=== PATIENT | female | born 1985 | race Caucasian/White ===

== ENCOUNTER → 2018-02-07 10:25 | Outpatient (CLI) | payer OTHER, MEDICAID, SELFPAY ==
[2018-02-07 12:05] LABS: Thyroid Stimulating Hormone 1.53 uIU/mL (0.47-4.68)
== END ==
PROVIDERS: Visit Provider Internal Medicine
DX: R53.83 Other fatigue (principal)
CPT/HCPCS: 36415; 84443

== ENCOUNTER → 2019-02-28 15:15 | Outpatient (CLI) | payer OTHER, SELFPAY ==
[2019-02-28 18:44] LABS: Appearance Urine UA CLOUDY; Bilirubin Urine UA NEGATIVE (NEGATIVE); Color Urine UA YELLOW; Glucose Urine UA NEGATIVE (Negative); Ketones Urine UA TRACE (NEGATIVE); Leukocyte Esterase Urine UA TRACE (NEGATIVE); Nitrite Urine UA NEGATIVE (Negative); Occult Blood Urine UA 2+ (Negative); Protein Urine UA 2+ (Negative); Urobilinogen Urine UA 0.2 E.U./dL (0.2); pH Urine UA 5.5 (4.5-8.0)
[2019-02-28 18:55] LABS: RBC Urine 1-5/HPF (0-5/HPF); WBC Urine 5-10/HPF (0-5/HPF)
[2019-02-28 18:56] LABS: Amorphous Sediment Urine 1+; Bacteria Urine Few (2-10); Culture Indicated Urine Specimen Cultured; Mucus Urine 1+ (Negative); Squamous Epithelial Cell Urine 5-10 /HPF (0-5/HPF)
== END ==
PROVIDERS: PCP Student in an Organized Health Care Education/Training Program; Visit Provider Hospitalist
DX: R31.9 Hematuria, unspecified (principal)
CPT/HCPCS: 81001; 87086

== ENCOUNTER → 2019-02-28 15:34 | Outpatient (CLI) | payer OTHER, SELFPAY ==
[2019-02-28 16:04] LABS: Add Manual Diff / Slide Review NO; Basophils Absolute Auto 100 /uL (0-100); Basophils Percent Auto 0.7 % (0-2); Eosinophils Absolute Auto 100 /uL (0-450); Eosinophils Percent Auto 0.8 % (2-4); Hematocrit 32.1 % (36-46); Hemoglobin 10.4 g/dL (12.0-16.0); Lymphocytes Absolute Auto 700 /uL (1100-4500); Lymphocytes Percent Auto 8.3 % (25-40); Mean Corpuscular HGB Conc 32.5 % (30-36); Mean Corpuscular Hemoglobin 23.8 PG (26-34); Mean Corpuscular Volume 73.2 fL (80-100); Monocytes Absolute Auto 900 /uL (0-900); Monocytes Percent Auto 11.1 % (3-14); Neutrophils Absolute Auto 6200 /uL (1500-7000); Neutrophils Percent Auto 79.1 % (50-75); Platelet Count 241 X10^3/uL (150-400); Red Blood Cell Count 4.38 X10^6/uL (4.0-5.2); Red Cell Distribution Width 17.2 % (11.6-14.8); White Blood Cell Count 7.9 X10^3/uL (4.5-11.0)
[2019-02-28 16:11] LABS: Hemoglobin A1C% w Est Avg Glu 5.2 % (4.0-6.0)
[2019-02-28 16:31] LABS: Alanine Aminotransferase 12 IU/L (9-52); Albumin Globulin Ratio 1.3 (1.0-2.8); Alkaline Phosphatase 75 U/L (38-126); Aspartate Aminotransferase 16 IU/L (14-36); BUN Creatinine Ratio 15.7 (6-22); Bilirubin Total 0.4 mg/dL (0.2-1.3); Blood Urea Nitrogen 11 mg/dL (7-17); Calcium 9.2 mg/dL (8.4-10.2); Carbon Dioxide 26 mmol/L (22-32); Chloride 105 mmol/L (98-107); Cholesterol 163 mg/dL (140-199); Estimated Glomerular Filt Rate > 60.0 mL/min (>60); Globulin 3.1 g/dL (1.7-4.1); Glucose 118 mg/dL (70-100); HDL Cholesterol 40 mg/dL (40-60); HEMOLYSIS < 15 (0-50); LDL Cholesterol Calculated 78 mg/dL (<100); Potassium 4.5 mmol/L (3.4-5.1); Sodium 140 mmol/L (137-145); Total Protein 7.1 g/dL (6.3-8.2); Triglycerides 223 mg/dL (35-150)
[2019-02-28 16:46] LABS: Vitamin D 25 Hydroxy (D3) 32.1 ng/mL (30.0-100.0)
== END ==
PROVIDERS: PCP Student in an Organized Health Care Education/Training Program; Visit Provider Hospitalist
DX: R31.9 Hematuria, unspecified (principal); E55.9 Vitamin D deficiency, unspecified; E28.2 Polycystic ovarian syndrome; E66.01 Morbid (severe) obesity due to excess calories; I10 Essential (primary) hypertension; E78.5 Hyperlipidemia, unspecified; R50.9 Fever, unspecified
CPT/HCPCS: 36415; 80053; 80061; 81001; 82306; 83036; 85025; 87086

== ENCOUNTER → 2019-03-01 15:55 | Outpatient (CLI) | payer OTHER, SELFPAY ==
--- NOTE | 2019-03-01 15:57 | DI.RAD.S_ITS ---
PROCEDURE: XR CHEST 2V INDICATIONS: fever TECHNIQUE: 2 views of the chest were acquired. COMPARISON: [facility], , CHEST 2 VIEW, 11/13/2014, 15:47. FINDINGS: Surgical changes and devices: None. Lungs and pleura: Pulmonary vascular congestion is seen. Airspace opacity in right infrahilar region is seen consistent with right lower lobe infiltrate. Left lung is clear. No pleural effusions or pneumothorax. Mediastinum: Mediastinal contours are normal. Heart size is normal. Bones and chest wall: No suspicious bony abnormalities. Soft tissues appear unremarkable. IMPRESSION: Pulmonary vessel congestion. Suggestion of right lower lobe infiltrate. Dictated by: Margarito Branham M.D. on 03/01/2019 at 16:38 Approved by: Margarito Branham M.D. on 03/01/2019 at 16:39
== END ==
PROVIDERS: PCP Student in an Organized Health Care Education/Training Program; Visit Provider Hospitalist
DX: R50.9 Fever, unspecified (principal); R09.89 Other specified symptoms and signs involving the circulatory and respiratory systems
CPT/HCPCS: 71046

== ENCOUNTER 2019-03-03 19:34 | Inpatient (IN) | payer OTHER, SELFPAY ==
[2019-03-03] VITALS (7 sets, daily range): BP systolic 119–162; BP diastolic 93–125; PULSE 125–145; RESP 19–40; TEMP 36.8–38.2; O2SAT 88–98; BMI 56.6
--- NOTE | 2019-03-03 19:57 | ED.SOB ---
HPI - SOB/Dyspnea General Chief Complaint: Shortness of Breath/Dyspnea Stated Complaint: pneumonia x5 days/on antibiotics Time Seen by Provider: 03/03/19 19:43 Source: patient Mode of arrival: ambulatory Limitations: no limitations History of Present Illness Patient is a 33-year-old female who was diagnosed with pneumonia on 03/01/2019 she was placed on Levaquin. She continues to have fever and increasing shortness of breath. She used her 's albuterol inhaler she says it did not really help. She feels short of breath at rest it is worse with exertion. She has no chest pain or tightness. She has no history of blood clots. She is noted be quite tachycardic in the ED. Her last dose of Tylenol was around 4:00 p.m.. Related Data Home Medications Medication Instructions Recorded Confirmed tramadol 50 mg tablet 50 mg PO DAILY PRN 12/04/18 03/04/19 Previous Rx's Medication Instructions Recorded ibuprofen 800 mg PO PRN PRN #90 tab 08/16/16 [id number] 1 cap PO Q6HP PRN #30 cap 10/03/17 [Fiorinal-Codeine #3] cromolyn [Nasalcrom] 0 NS SEE INSTRUCTIONS #1 bot 10/27/17 amlodipine 5 mg tablet 5 mg PO DAILY #90 tab 12/12/18 desogestrel 0.15 mg-ethinyl 1 tab PO DAILY #84 tab 02/15/19 estradiol 0.03 mg tablet levofloxacin 750 mg tablet 750 mg PO DAILY #7 tab 03/01/19 Allergies Allergy/AdvReac Type Severity Reaction Status Date / Time adhesive [ADHESIVE] AdvReac Unknown RASH Verified 03/03/19 19:51 hydrocodone [HYDROCODONE] AdvReac Unknown headache Verified 03/03/19 19:51 Review of Systems Review of Systems ROS Unobtainable: All systems reviewed & are unremarkable except as noted in HPI and below Constitutional Reports body ache(s), Reports chills, Reports fatigue and Reports fever(s) Eyes Denies change in vision, Denies eye discharge, Denies irritation and Denies loss of vision ENT Ears, Nose, Mouth, and Throat: Denies change in voice, Denies neck pain and Denies sore throat Cardiovascular Denies chest pain, Denies irregular heart rhythm, Denies lightheadedness, Denies palpitations, Reports dyspnea, Reports dyspnea on exertion and Denies orthopnea Respiratory Reports as per HPI, Reports chest congestion, Reports cough, Reports dyspnea and Reports dyspnea on exertion Gastrointestinal Gastrointestinal: Denies abdominal pain, Denies change in bowel habits, Denies diarrhea, Denies nausea and Denies vomiting Genitourinary Denies hematuria, Denies flank pain, Denies urinary incontinence and Denies urinary urgency Musculoskeletal Denies neck pain Integumentary/Breasts Denies pruritus, Denies erythema, Denies rash and Denies wounds Neurologic Denies loss of vision Endocrine Reports fatigue and Denies palpitations [facility] Medical History Hypertension (Chronic) Morbid obesity (Chronic) Hypoventilation associated with obesity syndrome (Acute) Pneumonia (Acute) Anxiety (Chronic) Chronic back pain (Chronic) DDD (degenerative disc disease), lumbar (Chronic) Depression (Chronic) PCOS (polycystic ovarian syndrome) (Chronic) 0 (Resolved) Surgical History History of tonsillectomy (Resolved) Family History Grandmother Coronary artery disease Mother Coronary artery disease Lung cancer Grandfather Coronary artery disease Unknown Hyperlipidemia Hypertension Coronary artery disease Depression Alcoholism Family/Other Hydrocephalus Social History household members: spouse Smoking Status: Former smoker alcohol intake: never substance use type: does not use Family History Grandmother Coronary artery disease Mother Coronary artery disease Lung cancer Grandfather Coronary artery disease Unknown Hyperlipidemia Hypertension Coronary artery disease Depression Alcoholism Family/Other Hydrocephalus Social History household members: spouse Smoking Status: Former smoker alcohol intake: never substance use type: does not use Exam Initial Vital Signs Initial Vital Signs: Vital Signs Temperature 98.7 F 03/03/19 19:51 Pulse Rate 130 H 03/03/19 19:51 Respiratory Rate 26 H 03/03/19 19:51 Blood Pressure 145/125 H 03/03/19 19:51 Pulse Oximetry 93 06/23/19 19:51 GENERAL obese female alert oriented x3 in mild respiratory distress HEENT: Head atraumatic,EOMI, pupils reactive, CARDIOVASCULAR: Tachycardic regular no murmur RESPIRATORY: Decreased breath sounds bilaterally no wheezes rales or rhonchi speaks in full sentences ABDOMEN: Soft, nontender. Normoactive bowel sounds all 4 quadrants. No guarding or rebound. EXTREMITIES: Normal range of motion, no clubbing or edema. Neurovascularly intact NEUROLOGICAL: Alert and oriented x4.Normal gait and speech. Cranial nerves II through XII grossly intact. SKIN: Warm, dry, no laceration, no petechiae, no rashes or lesions. Course Orders Ordered: ED Orders 03/03/19 19:53 B Type Natriuretic Peptide Stat Complete Blood Count AUTO DIFF Stat Comprehensive Metabolic Panel Stat Lactate (Lactic Acid) Stat Magnesium Stat Procalcitonin Stat Troponin & CK Cardiac Panel Stat 03/03/19 19:54 Consult to Respiratory Therapy Evaluate & Treat EKG-12 Lead Stat 03/03/19 19:58 CT angio chest PE protocol Stat 03/03/19 21:16 Urine Microscopic Stat 03/03/19 21:30 Blood Culture Stat 03/03/19 23:23 Arterial Blood Gas Stat 03/03/19 23:39 Education, smoking cessation ONGOING 03/03/19 23:43 Consult to Respiratory Therapy Evaluate & Treat 03/04/19 00:01 Education, smoking cessation ONGOING RT Consult Eval and Treat Now 03/04/19 00:32 Respiratory Panel (Film Array) Stat 03/04/19 05:00 Basic Metabolic Panel Routine Complete Blood Count AUTO DIFF Routine Albuterol (Ventolin) 2.5 mg INH [id number] KIRAN Last Admin: 03/04/19 00:02 Dose: 2.5 mg Albuterol/Ipratropium (Duoneb) 3 ml INH RTQ4HR PRN PRN Reason: Shortness Of Breath Last Admin: 03/04/19 00:02 Dose: 3 ml Amlodipine Besylate (Norvasc) 5 mg PO DAILY KIRAN Azithromycin (Zithromax) 500 mg PO DAILY [facility] Ceftriaxone Sodium/Dextrose (Rocephin) 1 gm in 50 mls @ 100 mls/hr IV Q24H KIRAN Sodium Chloride (Normal Saline 0.45%) 1,000 mls @ 125 mls/hr IV CONT KIRAN Ketorolac Tromethamine (Toradol) 30 mg IV Q8HR PRN PRN Reason: Pain, Moderate (4-6) Stop: 03/08/19 23:55 Levalbuterol HCl (Xopenex) 1.25 mg INH [id number] [facility] Non-Formulary Medication (Desogestrel-Ethinyl Estradiol) 1 tab PO DAILY [facility] Prednisone (Deltasone) 50 mg PO DAILY [facility] Stop: 03/11/19 08:59 Discontinued Medications Albuterol/Ipratropium (Duoneb) 3 ml INH NOW ONE Stop: 03/03/19 19:54 Last Admin: 03/03/19 20:10 Dose: 3 ml Azithromycin (Zithromax) 500 mg PO DAILY [facility] Sodium Chloride (Normal Saline 0.9%) 1,000 mls @ 1,000 mls/hr IV BOLUS ONE Stop: 03/03/19 20:52 Last Infusion: 03/03/19 22:37 Dose: 0 mls/hr Admin: 03/03/19 21:00 Dose: 1,000 mls/hr Sodium Chloride (Normal Saline 0.9%) 4,490.55 mls @ 1,496.85 mls/hr 30 ml/kg infuse over 3 hr (4490.55 ml) IV NOW ONE Stop: 03/04/19 00:41 Last Infusion: 03/04/19 00:22 Dose: 0 mls/hr Infusion: 03/03/19 23:10 Dose: 400 mls/hr Infusion: 03/03/19 23:02 Dose: 0 mls/hr Admin: 03/03/19 22:39 Dose: 1,496.85 mls/hr Azithromycin 500 mg/ Dextrose 250 mls @ 250 mls/hr IV NOW ONE Stop: 03/03/19 22:39 Last Infusion: 03/04/19 00:23 Dose: 0 mls/hr Admin: 03/03/19 23:55 Dose: 250 mls/hr Ceftriaxone Sodium/Dextrose (Rocephin) 1 gm in 50 mls @ 100 mls/hr IV NOW ONE Stop: 03/03/19 23:07 Last Infusion: 03/03/19 23:45 Dose: 0 mls/hr Infusion: 03/03/19 23:10 Dose: 100 mls/hr Infusion: 03/03/19 23:02 Dose: 0 mls/hr Admin: 03/03/19 22:56 Dose: 100 mls/hr Ceftriaxone Sodium/Dextrose (Rocephin) 1 gm in 50 mls @ 100 mls/hr IV Q24H KIRAN Ketorolac Tromethamine (Toradol) 30 mg IV NOW ONE Stop: 03/03/19 22:37 Last Admin: 03/03/19 22:38 Dose: 30 mg Methylprednisolone (Solu-Medrol 125 Mg Vial) 125 mg IV NOW ONE Stop: 03/03/19 23:45 Vital Signs - 8 hr 03/03/19 19:51 03/03/19 20:10 03/03/19 21:22 Temperature 98.7 F Pulse Rate 130 H 127 H 145 H Respiratory Rate 26 H 24 40 H Blood Pressure 145/125 H Blood Pressure [Right Arm] 119/94 H Pulse Oximetry 93 93 88 L 03/03/19 21:30 03/03/19 22:00 03/03/19 22:31 Temperature 100.8 F H Pulse Rate 127 H 125 H 126 H Respiratory Rate 27 H 19 29 H Blood Pressure Blood Pressure [Right Arm] 159/93 H 155/109 H 162/117 H Pulse Oximetry 95 93 98 03/03/19 23:26 03/04/19 00:03 03/04/19 00:17 Temperature 98.3 F Pulse Rate 119 H Respiratory Rate 26 H Blood Pressure 108/90 Blood Pressure [Right Arm] Pulse Oximetry 100 96 03/04/19 00:30 Temperature 99.3 F Pulse Rate 116 H Respiratory Rate 28 H Blood Pressure 106/74 Blood Pressure [Right Arm] Pulse Oximetry 95 MDM - SOB/Dyspnea Lab Data Attestation: I reviewed the patient's lab results. Result diagrams: 03/03/19 19:53 03/03/19 19:53 Lab Results 03/03/19 03/03/19 03/03/19 Range/Units 19:53 19:53 19:53 WBC 4.9 (4.5-11.0) X10^3/uL RBC 3.73 L (4.0-5.2) X10^6/uL Hgb 8.8 L (12.0-16.0) g/dL Hct 26.9 L (36-46) % MCV 72.3 L (80-100) fL MCH 23.7 L (26-34) PG MCHC 32.8 (30-36) % RDW 17.6 H (11.6-14.8) % Plt Count 187 (150-400) X10^3/uL Neut % (Auto) 83.0 H (50-75) % Lymph % (Auto) 8.3 L (25-40) % Schleicher % (Auto) 8.0 (3-14) % Eos % (Auto) 0.2 L (2-4) % Baso % (Auto) 0.5 (0-2) % Neut # (Auto) 4100 (2335-4919) /uL Lymph # (Auto) 400 L (0687-0511) /uL Schleicher # (Auto) 400 (0-900) /uL Eos # (Auto) 0 (0-450) /uL Baso # (Auto) 0 (0-100) /uL ABG pH (7.35-7.45) ABG pCO2 (35-45) mmHg ABG pO2 (80-100) mmHg ABG HCO3 (22-26) mmol/L ABG Total CO2 (21-31) mmol/L ABG O2 Saturation (95-100) % ABG Base Excess (-2-2) mmol/L FiO2 Sodium 136 L (137-145) mmol/L Potassium 3.8 (3.4-5.1) mmol/L Chloride 102 (98-107) mmol/L Carbon Dioxide 25 (22-32) mmol/L BUN 9 (7-17) mg/dL Creatinine 0.70 (0.52-1.04) mg/dL Estimated GFR > 60.0 (>60) mL/min BUN/Creatinine Ratio 12.9 (6-22) Glucose 116 H (70-100) mg/dL Lactate (0.7-2.1) mmol/L Calcium 8.9 (8.4-10.2) mg/dL Magnesium 1.7 (1.6-2.3) mg/dL Total Bilirubin 0.4 (0.2-1.3) mg/dL AST 38 H (14-36) IU/L ALT 34 (9-52) IU/L Alkaline Phosphatase 67 (38-126) U/L Total Creatine Kinase 417 H (30-135) U/L CK-MB (CK-2) 1.00 (<2.37) ng/mL CK-MB (CK-2) Rel Index 0.2 L (1.5-5.0) % Troponin I 0.015 (0.01-0.034) ng/mL B-Natriuretic Peptide < 100 (<100) Total Protein 7.2 (6.3-8.2) g/dL Albumin 3.8 (3.5-5.0) g/dL Globulin 3.4 (1.7-4.1) g/dL Albumin/Globulin Ratio 1.1 (1.0-2.8) Procalcitonin 0.11 (<0.5) ng/mL Urine RBC (0-5/HPF) Urine WBC (0-5/HPF) Ur Squamous Epith Cells (0-5/HPF) Urine Bacteria (None) Ur Culture Indicated? 03/03/19 03/03/19 03/03/19 Range/Units 19:53 21:16 23:23 WBC (4.5-11.0) X10^3/uL RBC (4.0-5.2) X10^6/uL Hgb (12.0-16.0) g/dL Hct (36-46) % MCV (80-100) fL MCH (26-34) PG MCHC (30-36) % RDW (11.6-14.8) % Plt Count (150-400) X10^3/uL Neut % (Auto) (50-75) % Lymph % (Auto) (25-40) % Schleicher % (Auto) (3-14) % Eos % (Auto) (2-4) % Baso % (Auto) (0-2) % Neut # (Auto) (4928-0862) /uL Lymph # (Auto) (0633-3719) /uL Schleicher # (Auto) (0-900) /uL Eos # (Auto) (0-450) /uL Baso # (Auto) (0-100) /uL ABG pH 7.39 (7.35-7.45) ABG pCO2 28.6 L (35-45) mmHg ABG pO2 78 L (80-100) mmHg ABG HCO3 17 L (22-26) mmol/L ABG Total CO2 18 L (21-31) mmol/L ABG O2 Saturation 96 (95-100) % ABG Base Excess -8.0 L (-2-2) mmol/L FiO2 0.28 Sodium (137-145) mmol/L Potassium (3.4-5.1) mmol/L Chloride (98-107) mmol/L Carbon Dioxide (22-32) mmol/L BUN (7-17) mg/dL Creatinine (0.52-1.04) mg/dL Estimated GFR (>60) mL/min BUN/Creatinine Ratio (6-22) Glucose (70-100) mg/dL Lactate 1.2 (0.7-2.1) mmol/L Calcium (8.4-10.2) mg/dL Magnesium (1.6-2.3) mg/dL Total Bilirubin (0.2-1.3) mg/dL AST (14-36) IU/L ALT (9-52) IU/L Alkaline Phosphatase (38-126) U/L Total Creatine Kinase (30-135) U/L CK-MB (CK-2) (<2.37) ng/mL CK-MB (CK-2) Rel Index (1.5-5.0) % Troponin I (0.01-0.034) ng/mL B-Natriuretic Peptide (<100) Total Protein (6.3-8.2) g/dL Albumin (3.5-5.0) g/dL Globulin (1.7-4.1) g/dL Albumin/Globulin Ratio (1.0-2.8) Procalcitonin (<0.5) ng/mL Urine RBC 1-5/hpf (0-5/HPF) Urine WBC 0-1/hpf (0-5/HPF) Ur Squamous Epith Cells 1-5 /hpf (0-5/HPF) Urine Bacteria Few (2-10) H (None) Ur Culture Indicated? Cult not indicated Point of Care Testing Test Results Negative Urine Dip Bedside Urine Glucose Negative Bedside Urine Bilirubin - Negative Bedside Urine Ketone - Negative Urine Specific [place] 1.015 Bedside Urine Occult Blood + Bedside Urine pH 6.0 Bedside Urine Protein + 30 Bedside Urine Urobilinogen +/- 1mg Bedside Urine Nitrite - Negative Bedside Urine Leukocytes - Negative Esterase Imaging Data CT scan - chest: Radiologist's impression: PROCEDURE: CT ANGIO CHEST PE PROTOCOL INDICATIONS: short of breath, tachy hypoxic TECHNIQUE: After the administration of intravenous contrast, 2 mm thick sections acquired from the pulmonary apices to the posterior costophrenic angles. 3-dimensional maximum intensity projection (MIP) coronal and sagittal reformats were then acquired through the thorax. For radiation dose reduction, the following was used: automated exposure control, adjustment of mA and/or kV according to patient size. COMPARISON: None. FINDINGS: Image quality: Excellent. Pulmonary arteries: Pulmonary arteries are normal in size, and demonstrate no intraluminal filling defects to suggest central pulmonary embolism. Subsegmental branches of bilateral pulmonary arteries are suboptimally opacified due to patient's body habitus. Lungs and pleura: Numerous nodular airspace opacities are seen in posterior aspect of bilateral upper lobes, right middle lobe and bilateral lower lobes following bronchovascular distribution suggestive of extensive bilateral bronchopneumonia. Moderate size air space opacity in anterior aspect of left lower lobe is also seen. There is trace amount of left pleural effusion. No right pleural effusion or pneumothorax. Central and peripheral airways are patent. Mediastinum: Heart size is normal, without pericardial effusion. Prominent mediastinal lymph nodes are seen measures up to 13 mm in short axis diameter in the prevascular space. Thoracic aorta is normal in caliber and enhancement. Esophagus is normal in caliber, with a small hiatal hernia. Bones and chest wall: No suspicious bony lesions. Ribs and thoracic spine appear intact throughout. Thyroid gland is within normal limits. No axillary or supraclavicular adenopathy. Abdomen: Visualized upper abdominal solid organs appear normal in the early arterial phase of enhancement. IMPRESSION: 1. No central pulmonary malaise. Distal subsegmental branches of bilateral pulmonary arteries are suboptimally opacified. 2. Moderate size air space consolidation involving posterior aspect of left upper lobe and anterior aspect of left lower lobe adjacent to oblique fissure. Extensive smaller airspace opacities throughout bilateral lung marie following bronchovascular distribution suggestive of extensive bilateral bronchopneumonia. Trace left pleural effusion is seen. No gross pneumothorax. Airway is patent. 3. Mildly enlarged mediastinal lymph nodes suggestive of reactive inflammatory nodes. Dictated by: Margarito Branham M.D. on 03/03/2019 at 21:20 ECG Data Attestation: I personally reviewed and interpreted this ECG as follows: Prior ECG tracings: not available for review Interpretation: Sinus tachycardia rate [address] changes no T-wave inversions no priors to compare MDM Narrative Medical decision making narrative: Patient remains quite tachycardic in the ED. She had difficulty lying down for the CT. Her BNP is negative do not think CHF at this time. Her CT does show pneumonia. There is no PE. She got up to use the restroom and was quite tachypneic her O2 dropped to 88%. She overall is still dyspneic. She has no leukocytosis and a normal lactic acid I do not think sepsis at this time but clearly has pneumonia and failing outpatient treatment requiring oxygen she will be admitted at this time for further management. Further initially started on the full sepsis fluids but probably does not need all of that. Margarita Collins [employer]IST in the ED to see and evaluate patient Discharge Plan Departure Patient Disposition: Admitted as Observation Clinical Impression: Pneumonia Discharge Date/Time: 03/04/19 00:25 Interventions: ED Discharge Assessment Last Done: 03/04/19 00:17 Admit Date/Time: 03/03/19 22:41 Admit Provider: Margarita Collins
[2019-03-03 20:10] LABS: Add Manual Diff / Slide Review NO; Basophils Absolute Auto 0 /uL (0-100); Basophils Percent Auto 0.5 % (0-2); Eosinophils Absolute Auto 0 /uL (0-450); Eosinophils Percent Auto 0.2 % (2-4); Hematocrit 26.9 % (36-46); Hemoglobin 8.8 g/dL (12.0-16.0); Lymphocytes Absolute Auto 400 /uL (1100-4500); Lymphocytes Percent Auto 8.3 % (25-40); Mean Corpuscular HGB Conc 32.8 % (30-36); Mean Corpuscular Hemoglobin 23.7 PG (26-34); Mean Corpuscular Volume 72.3 fL (80-100); Monocytes Absolute Auto 400 /uL (0-900); Neutrophils Absolute Auto 4100 /uL (1500-7000); Platelet Count 187 X10^3/uL (150-400); Red Blood Cell Count 3.73 X10^6/uL (4.0-5.2); Red Cell Distribution Width 17.6 % (11.6-14.8); White Blood Cell Count 4.9 X10^3/uL (4.5-11.0)
[2019-03-03] MEDS: ALBUTEROL/IPRATROPIUM 3 ML AMPUL INH (20:10)
[2019-03-03 20:23] LABS: Lactate (Lactic Acid) 1.2 mmol/L (0.7-2.1)
[2019-03-03 20:24] LABS: Alanine Aminotransferase 34 IU/L (9-52); Albumin 3.8 g/dL (3.5-5.0); Albumin Globulin Ratio 1.1 (1.0-2.8); Alkaline Phosphatase 67 U/L (38-126); Aspartate Aminotransferase 38 IU/L (14-36); BUN Creatinine Ratio 12.9 (6-22); Bilirubin Total 0.4 mg/dL (0.2-1.3); Blood Urea Nitrogen 9 mg/dL (7-17); Calcium 8.9 mg/dL (8.4-10.2); Carbon Dioxide 25 mmol/L (22-32); Chloride 102 mmol/L (98-107); Creatine Kinase 417 U/L (30-135); Estimated Glomerular Filt Rate > 60.0 mL/min (>60); Globulin 3.4 g/dL (1.7-4.1); Glucose 116 mg/dL (70-100); HEMOLYSIS < 15 (0-50); Magnesium 1.7 mg/dL (1.6-2.3); Potassium 3.8 mmol/L (3.4-5.1); Sodium 136 mmol/L (137-145); Total Protein 7.2 g/dL (6.3-8.2)
[2019-03-03 20:32] LABS: B Type Natriuretic Peptide < 100 (<100)
[2019-03-03 20:35] LABS: Troponin I 0.015 ng/mL (0.01-0.034)
[2019-03-03 20:37] LABS: Procalcitonin 0.11 ng/mL (<0.5)
[2019-03-03 20:39] LABS: CKMB % Relative Index 0.2 % (1.5-5.0)
[2019-03-03] MEDS: SODIUM CHLORIDE 0.9% 1,000 ML 1000 ML IV (21:00)
--- NOTE | 2019-03-03 21:23 | PC.NURSE ---
I was notified by control room technician that pt was unable to lie flat for her CT angio due to SOB and body habitus. Dr Fonseca notified, plan of care discussed with pt and bedside. It was decided to try again, limiting the time lying flat as much as possible, pt given O2 Via mask for comfort, and breasts strapped flat to prevent them from strangling me. Pt was able to tolerate CT with above interventions. Pt was assisted to BR via WC. She was very SOB, tachycardic to 140's, RR 40, RA SpO2 88% after exertion. Pt required 5 minutes to recover. 2liters O2 applied via NC.
--- NOTE | 2019-03-03 22:15 | PM.HP.1 ---
History of Present Illness Date Patient Seen: 03/03/19 Time Patient Seen: 10:15 Chief complaint: pneumonia x5 days Narrative: Charisse Norwood is a 23 y.o. morbidly obese female who endorses a 5-day history of fevers and shortness of breath. She was initially treated in an outpatient setting for a viral illness on 03/01, though the ED report states she was treated with levaquin. This was not stated in the outpatient visit of 03/01. She has had fevers, shortness of breath and is unable to lay supine, she was reportedly tachypneac and tachycardic. States she has a cough, was productive at home with green, yellow and brown colored sputum, but has been unable to expectorate any while in the Ed. She states she has not been eating, is mildly nauseas, but has not vomited. Denies chest pain, diarrhea or constipation. Patient History Medical History Hypertension (Chronic) Morbid obesity (Chronic) Hypoventilation associated with obesity syndrome (Acute) Pneumonia (Acute) Anxiety (Chronic) Chronic back pain (Chronic) DDD (degenerative disc disease), lumbar (Chronic) Depression (Chronic) PCOS (polycystic ovarian syndrome) (Chronic) 0 (Resolved) Surgical History History of tonsillectomy (Resolved) Family History Grandmother Coronary artery disease Mother Coronary artery disease Lung cancer Grandfather Coronary artery disease Unknown Hyperlipidemia Hypertension Coronary artery disease Depression Alcoholism Family/Other Hydrocephalus Social History Smoking Status: Former smoker alcohol intake: never substance use type: does not use Family & Social History Family History Grandmother Coronary artery disease Mother Coronary artery disease Lung cancer Grandfather Coronary artery disease Unknown Hyperlipidemia Hypertension Coronary artery disease Depression Alcoholism Family/Other Hydrocephalus Safety & Behavioral: Feels Safe in Current Yes Environment Tobacco & Substance use: Smoking Status Former smoker, quit 2007. alcohol intake never Substance Use Type does not use Meds Home Medications Medication Instructions Recorded Confirmed Type ibuprofen 800 mg PO PRN PRN #90 tab 08/16/16 03/04/19 Rx ktkgvnw-wwbulzerkr-RHC-caff 1 cap PO Q6HP PRN #30 cap 10/03/17 03/04/19 Rx [Fiorinal-Codeine #3] cromolyn [Nasalcrom] 0 NS SEE INSTRUCTIONS #1 bot 10/27/17 02/28/19 Rx tramadol 50 mg tablet 50 mg PO DAILY PRN 12/04/18 03/04/19 History amlodipine 5 mg tablet 5 mg PO DAILY #90 tab 12/12/18 03/04/19 Rx desogestrel 0.15 mg-ethinyl 1 tab PO DAILY #84 tab 02/15/19 03/04/19 Rx estradiol 0.03 mg tablet levofloxacin 750 mg tablet 750 mg PO DAILY #7 tab 03/01/19 03/04/19 Rx Allergies Allergy/AdvReac Type Severity Reaction Status Date / Time adhesive [ADHESIVE] AdvReac Unknown RASH Verified 03/03/19 19:51 hydrocodone [HYDROCODONE] AdvReac Unknown headache Verified 03/03/19 19:51 Review of Systems Review of Systems All systems reviewed & are unremarkable except as noted in HPI and below Exam Vital Signs (past 8 hours): - 03/03/19 19:51 03/03/19 20:10 03/03/19 21:22 Temperature 98.7 F Pulse Rate 130 H 127 H 145 H Respiratory Rate 26 H 24 40 H Blood Pressure 145/125 H Blood Pressure [Right Arm] 119/94 H Pulse Oximetry 93 93 88 L 03/03/19 21:30 03/03/19 22:00 03/03/19 22:31 Temperature 100.8 F H Pulse Rate 127 H 125 H 126 H Respiratory Rate 27 H 19 29 H Blood Pressure Blood Pressure [Right Arm] 159/93 H 155/109 H 162/117 H Pulse Oximetry 95 93 98 03/03/19 23:26 03/04/19 00:03 Temperature 98.3 F Pulse Rate Respiratory Rate Blood Pressure Blood Pressure [Right Arm] Pulse Oximetry 100 Oxygen Delivery Method Nasal Cannula Oxygen Flow Rate 2 Narrative Exam Narrative: Gen: Alert, oriented morbidly obese 33 y.o. female, appears to have difficulty breathing HEENT: normocephalic, atraumatic, conjunctiva clear, sclera non-icteric, oral mucosa pink and moist Neck: supple, full ROM Resp: She has labored work of breathing, lung sounds diminished and tight CV: RRR, no murmur or rubs Abd: soft, non-tender, normoactive BTs : UPG negative Skin: no lesions or rashes, dry and intact Neuro: Alert and oriented X 4 w/no focal deficits Extremities: moves all 4 extremities, is ambulatory Psyche: normal mood and affect. Objective Labs Result Diagrams: 03/03/19 19:53 03/03/19 19:53 Labs: Laboratory Results - last 24 hr 03/03/19 03/03/19 03/03/19 19:53 19:53 19:53 WBC 4.9 RBC 3.73 L Hgb 8.8 L Hct 26.9 L MCV 72.3 L MCH 23.7 L MCHC 32.8 RDW 17.6 H Plt Count 187 Neut % (Auto) 83.0 H Lymph % (Auto) 8.3 L [place] % (Auto) 8.0 Eos % (Auto) 0.2 L Baso % (Auto) 0.5 Neut # (Auto) 4100 Lymph # (Auto) 400 L [place] # (Auto) 400 Eos # (Auto) 0 Baso # (Auto) 0 ABG pH ABG pCO2 ABG pO2 ABG HCO3 ABG Total CO2 ABG O2 Saturation ABG Base Excess FiO2 Sodium 136 L Potassium 3.8 Chloride 102 Carbon Dioxide 25 BUN 9 Creatinine 0.70 Estimated GFR > 60.0 BUN/Creatinine Ratio 12.9 Glucose 116 H Lactate Calcium 8.9 Magnesium 1.7 Total Bilirubin 0.4 AST 38 H ALT 34 Alkaline Phosphatase 67 Total Creatine Kinase 417 H CK-MB (CK-2) 1.00 CK-MB (CK-2) Rel Index 0.2 L Troponin I 0.015 B-Natriuretic Peptide < 100 Total Protein 7.2 Albumin 3.8 Globulin 3.4 Albumin/Globulin Ratio 1.1 Procalcitonin 0.11 Urine RBC Urine WBC Ur Squamous Epith Cells Urine Bacteria Ur Culture Indicated? 03/03/19 03/03/19 03/03/19 19:53 21:16 23:23 WBC RBC Hgb Hct MCV MCH MCHC RDW Plt Count Neut % (Auto) Lymph % (Auto) [place] % (Auto) Eos % (Auto) Baso % (Auto) Neut # (Auto) Lymph # (Auto) [place] # (Auto) Eos # (Auto) Baso # (Auto) ABG pH 7.39 ABG pCO2 28.6 L ABG pO2 78 L ABG HCO3 17 L ABG Total CO2 18 L ABG O2 Saturation 96 ABG Base Excess -8.0 L FiO2 0.28 Sodium Potassium Chloride Carbon Dioxide BUN Creatinine Estimated GFR BUN/Creatinine Ratio Glucose Lactate 1.2 Calcium Magnesium Total Bilirubin AST ALT Alkaline Phosphatase Total Creatine Kinase CK-MB (CK-2) CK-MB (CK-2) Rel Index Troponin I B-Natriuretic Peptide Total Protein Albumin Globulin Albumin/Globulin Ratio Procalcitonin Urine RBC 1-5/hpf Urine WBC 0-1/hpf Ur Squamous Epith Cells 1-5 /hpf Urine Bacteria Few (2-10) H Ur Culture Indicated? Cult not indicated Assessment & Plan Assessment & Plan narrative: Charisse Norwood is a 33 y.o. female who is hypoxic with a presumed community acquired pneumonia and will be placed into observation for further management and treatment. 1. Community acquired pneumonia, present on admission, acute She is initiated on IV ceftriaxone 1 gram daily and oral azithromycin 500 mg po daily 2. Obesity associated hypoventilation syndrome with a normal ABG, present on admission, acute Continuous pulse ox Patient has a history of untreated obstructive sleep apnea with significant nocturnal desaturations and has been unable to tolerate a nasal CPAP mask. She will receive a one time dose of Solu-medrol 125 mg IV X 1 Start oral predisone 50 mg daily Alternating levabuterol and duo nebs Supplemental oxygen by nasal cannula per RT She will likely need to be discharged on combination bronchodialator and steroid 3. Essential hypertension, present on admission, stable Continue home dose of amlodipine 10 mg daily Patient will be placed into observation as her stay is anticipated to not exceed 2 midnights. FEN: 0.45 NS at 125 ml/hour, 2 gram sodium diet, BMP in the am VTE Prophylaxis: enoxaparin 40 mg daily Disposition: likely discharge to home Code status: Full code Admission time: 65 minutes Meds reconciled: Yes Time Spent With Patient Time with patient: 15-24 minutes Quality VTE Deep Vein Thrombosis/Pulmonary Embolism Present on Admission: No
[2019-03-03] MEDS: KETOROLAC 60 MG/2 ML VIAL 30 MG IV (22:38)
[2019-03-03] MEDS: SODIUM CHLORIDE 0.9% 1496.85 ML IV (22:39)
[2019-03-03 22:46] LABS: Bacteria Urine Few (2-10); Culture Indicated Urine Cult Not Indicated; RBC Urine 1-5/HPF (0-5/HPF); Squamous Epithelial Cell Urine 1-5 /HPF (0-5/HPF); WBC Urine 0-1/HPF (0-5/HPF)
[2019-03-03] MEDS: CEFTRIAXONE 1 GM/50 ML FROZ.PIGGY IV (22:56)
--- NOTE | 2019-03-03 23:02 | PC.NURSE ---
Verbal order from Anuj Washburn to slow IV normal saline down and administer a total of 3L normal saline. Unable to change the total volume in MAR.
[2019-03-03 23:42] LABS: HCO3 ABG 17 mmol/L (22-26); Oxygen Saturation ABG 96 % (95-100); PCO2 ABG 28.6 mmHg (35-45); PO2 ABG 78 mmHg (80-100); TCO2 ABG 18 mmol/L (21-31); pH ABG 7.39 (7.35-7.45)
[2019-03-03 23:43] LABS: Fractionated Inspired Oxygen 0.28
[2019-03-03] MEDS: AZITHROMYCIN 500 MG in DEXTROSE 5% IN WATER 250 ML IV (23:55)
[2019-03-04] VITALS (21 sets, daily range): BP systolic 106–146; BP diastolic 72–90; PULSE 101–119; RESP 18–28; TEMP 36.3–37.4; O2SAT 87–100; BMI 58.6
[2019-03-04] MEDS: ALBUTEROL/IPRATROPIUM 3 ML AMPUL INH (00:02)
[2019-03-04] MEDS: ALBUTEROL 2.5 MG/3 ML NEB (ADULT) INH (00:02)
--- NOTE | 2019-03-04 00:11 | P.HP_ITS ---
History of Present Illness Date Patient Seen: 03/03/19 Time Patient Seen: 10:15 Chief complaint: pneumonia x5 days Narrative: Charisse Norwood is a 23 y.o. morbidly obese female who endorses a 5-day history of fevers and shortness of breath. She was initially treated in an outpatient setting for a viral illness on 03/01, though the ED report states she was treated with levaquin. This was not stated in the outpatient visit of 03/01. She has had fevers, shortness of breath and is unable to lay supine, she was reportedly tachypneac and tachycardic. States she has a cough, was productive at home with green, yellow and brown colored sputum, but has been unable to expectorate any while in the Ed. She states she has not been eating, is mildly nauseas, but has not vomited. Denies chest pain, diarrhea or constipation. Patient History Medical History Hypertension (Chronic) Morbid obesity (Chronic) Hypoventilation associated with obesity syndrome (Acute) Pneumonia (Acute) Anxiety (Chronic) Chronic back pain (Chronic) DDD (degenerative disc disease), lumbar (Chronic) Depression (Chronic) PCOS (polycystic ovarian syndrome) (Chronic) 0 (Resolved) Surgical History History of tonsillectomy (Resolved) Family History Grandmother Coronary artery disease Mother Coronary artery disease Lung cancer Grandfather Coronary artery disease Unknown Hyperlipidemia Hypertension Coronary artery disease Depression Alcoholism Family/Other Hydrocephalus Social History Smoking Status: Former smoker alcohol intake: never substance use type: does not use Family & Social History Family History Grandmother Coronary artery disease Mother Coronary artery disease Lung cancer Grandfather Coronary artery disease Unknown Hyperlipidemia Hypertension Coronary artery disease Depression Alcoholism Family/Other Hydrocephalus Safety & Behavioral: Feels Safe in Current Yes Environment Tobacco & Substance use: Smoking Status Former smoker, quit 2007. alcohol intake never Substance Use Type does not use Meds Home Medications Medication Instructions Recorded Confirmed Type ibuprofen 800 mg PO PRN PRN #90 tab 08/16/16 03/04/19 Rx evmjizn-ogxmhmmlqs-TID-caff 1 cap PO Q6HP PRN #30 cap 10/03/17 03/04/19 Rx [Fiorinal-Codeine #3] cromolyn [Nasalcrom] 0 NS SEE INSTRUCTIONS #1 bot 10/27/17 02/28/19 Rx tramadol 50 mg tablet 50 mg PO DAILY PRN 12/04/18 03/04/19 History amlodipine 5 mg tablet 5 mg PO DAILY #90 tab 12/12/18 03/04/19 Rx desogestrel 0.15 mg-ethinyl 1 tab PO DAILY #84 tab 02/15/19 03/04/19 Rx estradiol 0.03 mg tablet levofloxacin 750 mg tablet 750 mg PO DAILY #7 tab 03/01/19 03/04/19 Rx Allergies Allergy/AdvReac Type Severity Reaction Status Date / Time adhesive [ADHESIVE] AdvReac Unknown RASH Verified 03/03/19 19:51 hydrocodone [HYDROCODONE] AdvReac Unknown headache Verified 03/03/19 19:51 Review of Systems Review of Systems All systems reviewed & are unremarkable except as noted in HPI and below Exam Vital Signs (past 8 hours): - 03/03/19 19:51 03/03/19 20:10 03/03/19 21:22 Temperature 98.7 F Pulse Rate 130 H 127 H 145 H Respiratory Rate 26 H 24 40 H Blood Pressure 145/125 H Blood Pressure [Right Arm] 119/94 H Pulse Oximetry 93 93 88 L 03/03/19 21:30 03/03/19 22:00 03/03/19 22:31 Temperature 100.8 F H Pulse Rate 127 H 125 H 126 H Respiratory Rate 27 H 19 29 H Blood Pressure Blood Pressure [Right Arm] 159/93 H 155/109 H 162/117 H Pulse Oximetry 95 93 98 03/03/19 23:26 03/04/19 00:03 Temperature 98.3 F Pulse Rate Respiratory Rate Blood Pressure Blood Pressure [Right Arm] Pulse Oximetry 100 Oxygen Delivery Method Nasal Cannula Oxygen Flow Rate 2 Narrative Exam Narrative: Gen: Alert, oriented morbidly obese 33 y.o. female, appears to have difficulty breathing HEENT: normocephalic, atraumatic, conjunctiva clear, sclera non-icteric, oral mucosa pink and moist Neck: supple, full ROM Resp: She has labored work of breathing, lung sounds diminished and tight CV: RRR, no murmur or rubs Abd: soft, non-tender, normoactive BTs : UPG negative Skin: no lesions or rashes, dry and intact Neuro: Alert and oriented X 4 w/no focal deficits Extremities: moves all 4 extremities, is ambulatory Psyche: normal mood and affect. Objective Labs Result Diagrams: 03/03/19 19:53 03/03/19 19:53 Labs: Laboratory Results - last 24 hr 03/03/19 03/03/19 03/03/19 19:53 19:53 19:53 WBC 4.9 RBC 3.73 L Hgb 8.8 L Hct 26.9 L MCV 72.3 L MCH 23.7 L MCHC 32.8 RDW 17.6 H Plt Count 187 Neut % (Auto) 83.0 H Lymph % (Auto) 8.3 L [place] % (Auto) 8.0 Eos % (Auto) 0.2 L Baso % (Auto) 0.5 Neut # (Auto) 4100 Lymph # (Auto) 400 L [place] # (Auto) 400 Eos # (Auto) 0 Baso # (Auto) 0 ABG pH ABG pCO2 ABG pO2 ABG HCO3 ABG Total CO2 ABG O2 Saturation ABG Base Excess FiO2 Sodium 136 L Potassium 3.8 Chloride 102 Carbon Dioxide 25 BUN 9 Creatinine 0.70 Estimated GFR > 60.0 BUN/Creatinine Ratio 12.9 Glucose 116 H Lactate Calcium 8.9 Magnesium 1.7 Total Bilirubin 0.4 AST 38 H ALT 34 Alkaline Phosphatase 67 Total Creatine Kinase 417 H CK-MB (CK-2) 1.00 CK-MB (CK-2) Rel Index 0.2 L Troponin I 0.015 B-Natriuretic Peptide < 100 Total Protein 7.2 Albumin 3.8 Globulin 3.4 Albumin/Globulin Ratio 1.1 Procalcitonin 0.11 Urine RBC Urine WBC Ur Squamous Epith Cells Urine Bacteria Ur Culture Indicated? 03/03/19 03/03/19 03/03/19 19:53 21:16 23:23 WBC RBC Hgb Hct MCV MCH MCHC RDW Plt Count Neut % (Auto) Lymph % (Auto) [place] % (Auto) Eos % (Auto) Baso % (Auto) Neut # (Auto) Lymph # (Auto) [place] # (Auto) Eos # (Auto) Baso # (Auto) ABG pH 7.39 ABG pCO2 28.6 L ABG pO2 78 L ABG HCO3 17 L ABG Total CO2 18 L ABG O2 Saturation 96 ABG Base Excess -8.0 L FiO2 0.28 Sodium Potassium Chloride Carbon Dioxide BUN Creatinine Estimated GFR BUN/Creatinine Ratio Glucose Lactate 1.2 Calcium Magnesium Total Bilirubin AST ALT Alkaline Phosphatase Total Creatine Kinase CK-MB (CK-2) CK-MB (CK-2) Rel Index Troponin I B-Natriuretic Peptide Total Protein Albumin Globulin Albumin/Globulin Ratio Procalcitonin Urine RBC 1-5/hpf Urine WBC 0-1/hpf Ur Squamous Epith Cells 1-5 /hpf Urine Bacteria Few (2-10) H Ur Culture Indicated? Cult not indicated Assessment & Plan Assessment & Plan narrative: Charisse Norwood is a 33 y.o. female who is hypoxic with a presumed community acquired pneumonia and will be placed into observation for further management and treatment. 1. Community acquired pneumonia, present on admission, acute * She is initiated on IV ceftriaxone 1 gram daily and oral azithromycin 500 mg po daily 2. Obesity associated hypoventilation syndrome with a normal ABG, present on admission, acute * Continuous pulse ox * Patient has a history of untreated obstructive sleep apnea with significant nocturnal desaturations and has been unable to tolerate a nasal CPAP mask. * She will receive a one time dose of Solu-medrol 125 mg IV X 1 * Start oral predisone 50 mg daily * Alternating levabuterol and duo nebs * Supplemental oxygen by nasal cannula per RT * She will likely need to be discharged on combination bronchodialator and steroid 3. Essential hypertension, present on admission, stable * Continue home dose of amlodipine 10 mg daily Patient will be placed into observation as her stay is anticipated to not exceed 2 midnights. FEN: 0.45 NS at 125 ml/hour, 2 gram sodium diet, BMP in the am VTE Prophylaxis: enoxaparin 40 mg daily Disposition: likely discharge to home Code status: Full code Admission time: 65 minutes Meds reconciled: Yes Time Spent With Patient Time with patient: 15-24 minutes Quality VTE Deep Vein Thrombosis/Pulmonary Embolism Present on Admission: No
[2019-03-04] MEDS: methylPREDNISolone 125 MG/2 ML VIAL IV (01:34)
[2019-03-04 01:51] LABS: Adenovirus Detected (Not Detect)
[2019-03-04 01:52] LABS: Bordetella pertussis Not Detected (Not Detect); Chlamydophila pneumoniae Not Detected (Not Detect); Coronavirus 229E Not Detected (Not Detect); Coronavirus HKU1 Not Detected (Not Detect); Coronavirus NL 63 Not Detected (Not Detect); Coronavirus OC43 Not Detected (Not Detect); Human Metapneumovirus Not Detected (Not Detect); Human Rhinovirus/Enterovirus Not Detected (Not Detect); Influenza A Not Detected (Not Detect); Influenza B Not Detected (Not Detect); Mycoplasma pneumoniae Not Detected (Not Detect); Parainfluenza Virus 1 Not Detected (Not Detect); Parainfluenza Virus 2 Not Detected (Not Detect); Parainfluenza Virus 3 Not Detected (Not Detect); Parainfluenza Virus 4 Not Detected (Not Detect); Respiratory Syncytial Virus Not Detected (Not Detect)
[2019-03-04] MEDS: SODIUM CHLORIDE 0.45% 1,000 ML 125 ML IV ×3 (01:54→19:54)
--- NOTE | 2019-03-04 02:35 | PC.ADMIT ---
[email or web address] [email or web address].[id number] Admission Note: 0030 patient admitted to room 204 per wheelchair. Respiratory swab obtained and sent to lab; droplet precautions initiated until results of respiratory panel comes back. Patient is alert and oriented. Breath sounds very diminished throughout and has chest congestion and non productive frequent cough. Oxygen at 2L/min per NC with sat of 96%; placed on continuous pulse oximetry. Is SOB both at rest and with exertion. Unable to lie flat. HRR but tachy at 117 bpm. Denies nausea. BT hypoactive; reports 1 liquid stool yesterday. Has chronic urinary frequency but denies urgency, dysuria or incontinence. Assisted to bathroom and is steady on feet. Able to move herself in bed. Respiratory panel returned positive for adenovirus so placed on contact/droplet precautions and patient informed of isolation precautions; verbalizes understanding. IV in left AC continuously occluding so RN from ER up to room and started 2 new IV's. Denies pain. Fall risk score is moderate but patient calling for assistance appropriately so bed alarm is not being used at this time. Oriented to room, call light, and bed controls. JOSÉ MANUEL Lemos, contacted for diet order. The patient,Charisse Norwood,33 y/o, was given written information regarding hospital policies, unit procedures and contact persons. Patient's smoking status: Former smoker. Vital Signs - 8 hr 03/03/19 19:51 03/03/19 20:10 03/03/19 21:22 Temperature 98.7 F Pulse Rate 130 H 127 H 145 H Respiratory Rate 26 H 24 40 H Blood Pressure 145/125 H Blood Pressure [Right Arm] 119/94 H Pulse Oximetry 93 93 88 L 03/03/19 21:30 03/03/19 22:00 03/03/19 22:31 Temperature 100.8 F H Pulse Rate 127 H 125 H 126 H Respiratory Rate 27 H 19 29 H Blood Pressure Blood Pressure [Right Arm] 159/93 H 155/109 H 162/117 H Pulse Oximetry 95 93 98 03/03/19 23:26 03/04/19 00:03 03/04/19 00:17 Temperature 98.3 F Pulse Rate 119 H Respiratory Rate 26 H Blood Pressure 108/90 Blood Pressure [Right Arm] Pulse Oximetry 100 96 03/04/19 00:30 03/04/19 01:41 Temperature 99.3 F Pulse Rate 116 H Respiratory Rate 28 H Blood Pressure 106/74 Blood Pressure [Right Arm] Pulse Oximetry 95 96
[2019-03-04] MEDS: LEVALBUTEROL 1.25 MG/0.5 ML NEB INH ×4 (05:01→20:34)
[2019-03-04 05:43] LABS: Add Manual Diff / Slide Review NO; Basophils Absolute Auto 0 /uL (0-100); Basophils Percent Auto 0.2 % (0-2); Eosinophils Absolute Auto 0 /uL (0-450); Hematocrit 28.5 % (36-46); Hemoglobin 9.2 g/dL (12.0-16.0); Lymphocytes Absolute Auto 400 /uL (1100-4500); Lymphocytes Percent Auto 7.2 % (25-40); Mean Corpuscular HGB Conc 32.2 % (30-36); Mean Corpuscular Hemoglobin 23.3 PG (26-34); Mean Corpuscular Volume 72.5 fL (80-100); Monocytes Absolute Auto 200 /uL (0-900); Monocytes Percent Auto 3.3 % (3-14); Neutrophils Absolute Auto 4500 /uL (1500-7000); Neutrophils Percent Auto 89.3 % (50-75); Platelet Count 187 X10^3/uL (150-400); Red Blood Cell Count 3.93 X10^6/uL (4.0-5.2); Red Cell Distribution Width 17.5 % (11.6-14.8)
[2019-03-04 05:50] LABS: BUN Creatinine Ratio 12.9 (6-22); Blood Urea Nitrogen 9 mg/dL (7-17); Calcium 8.8 mg/dL (8.4-10.2); Carbon Dioxide 21 mmol/L (22-32); Chloride 104 mmol/L (98-107); Estimated Glomerular Filt Rate > 60.0 mL/min (>60); Glucose 206 mg/dL (70-100); HEMOLYSIS < 15 (0-50); Potassium 3.7 mmol/L (3.4-5.1); Sodium 138 mmol/L (137-145)
[2019-03-04] MEDS: predniSONE 20 MG TABLET 50 MG PO (09:55)
[2019-03-04] MEDS: AMLODIPINE 5 MG TABLET PO (09:55)
--- NOTE | 2019-03-04 10:19 | P.PN_ITS ---
Subjective Date Patient Seen: 03/04/19 Time Patient Seen: 10:20 Interval history: Follow up on viral pneumonia. Patient seen at bedside. She is doing much better today. She is not so short of breath as she was when she 1st came in, she says. Patient is using nasal cannula oxygen with good saturations. She still continues to have cough, rhinorrhea, sore throat. She still feels slightly feverish. No acute overnight events. Patient was tested positive for adenovirus on PCR viral panel. Exam Vital Signs (past 8 hours): - 03/04/19 04:00 03/04/19 05:01 03/04/19 07:40 Temperature 99.2 F Pulse Rate 113 H Respiratory Rate 27 H Blood Pressure 146/75 H Pulse Oximetry 94 94 94 03/04/19 08:00 Temperature 98 F Pulse Rate 115 H Respiratory Rate 22 Blood Pressure 140/80 Pulse Oximetry 97 Oxygen Delivery Method High Flow Nasal Cannula Oxygen Flow Rate 2 Narrative Exam Narrative: General: No acute distress, A/O x3 HEENT: PERRLA and EOMI bilaterally. Moist mucous membranes. No oropharyngeal erythema. Nasal cannula in place Neck: Supple, obese CV: Regular rate rhythm, no murmurs or gallops Respiratory: Coarse breath sounds in the left lung throughout GI: Obese, positive bowel sounds, no organomegaly Musculoskeletal: Moves all extremities Extremities: No edema, 2+ pulses Skin: Warm to touch, no bruising or lesions Neuro: No focal deficits, AO x3 Psych: Appropriate mood and behavior Objective Labs Result Diagrams: 03/04/19 05:31 03/04/19 05:31 Labs: Laboratory Results - last 24 hr 03/03/19 03/03/19 03/03/19 19:53 19:53 19:53 WBC 4.9 RBC 3.73 L Hgb 8.8 L Hct 26.9 L MCV 72.3 L MCH 23.7 L MCHC 32.8 RDW 17.6 H Plt Count 187 Neut % (Auto) 83.0 H Lymph % (Auto) 8.3 L [place] % (Auto) 8.0 Eos % (Auto) 0.2 L Baso % (Auto) 0.5 Neut # (Auto) 4100 Lymph # (Auto) 400 L [place] # (Auto) 400 Eos # (Auto) 0 Baso # (Auto) 0 ABG pH ABG pCO2 ABG pO2 ABG HCO3 ABG Total CO2 ABG O2 Saturation ABG Base Excess FiO2 Sodium 136 L Potassium 3.8 Chloride 102 Carbon Dioxide 25 BUN 9 Creatinine 0.70 Estimated GFR > 60.0 BUN/Creatinine Ratio 12.9 Glucose 116 H Lactate Calcium 8.9 Magnesium 1.7 Total Bilirubin 0.4 AST 38 H ALT 34 Alkaline Phosphatase 67 Total Creatine Kinase 417 H CK-MB (CK-2) 1.00 CK-MB (CK-2) Rel Index 0.2 L Troponin I 0.015 B-Natriuretic Peptide < 100 Total Protein 7.2 Albumin 3.8 Globulin 3.4 Albumin/Globulin Ratio 1.1 Procalcitonin 0.11 Urine RBC Urine WBC Ur Squamous Epith Cells Urine Bacteria Ur Culture Indicated? Chlamy pneumoniae PCR Adenovirus (PCR) B.parapertussis DNA PCR Coronavirus OC43 (PCR) Coronavirus HKU1 (PCR) Coronavirus 229E (PCR) Coronavirus NL63 (PCR) Human Metapneumovir PCR Influenza Type A (PCR) Influenza Type B (PCR) M. pneumoniae (PCR) Parainfluenza 1 (PCR) Parainfluenza 2 (PCR) Parainfluenza 3 (PCR) Parainfluenza 4 (PCR) RSV (PCR) Entero/Rhino (PCR) 03/03/19 03/03/19 03/03/19 19:53 21:16 23:23 WBC RBC Hgb Hct MCV MCH MCHC RDW Plt Count Neut % (Auto) Lymph % (Auto) [place] % (Auto) Eos % (Auto) Baso % (Auto) Neut # (Auto) Lymph # (Auto) [place] # (Auto) Eos # (Auto) Baso # (Auto) ABG pH 7.39 ABG pCO2 28.6 L ABG pO2 78 L ABG HCO3 17 L ABG Total CO2 18 L ABG O2 Saturation 96 ABG Base Excess -8.0 L FiO2 0.28 Sodium Potassium Chloride Carbon Dioxide BUN Creatinine Estimated GFR BUN/Creatinine Ratio Glucose Lactate 1.2 Calcium Magnesium Total Bilirubin AST ALT Alkaline Phosphatase Total Creatine Kinase CK-MB (CK-2) CK-MB (CK-2) Rel Index Troponin I B-Natriuretic Peptide Total Protein Albumin Globulin Albumin/Globulin Ratio Procalcitonin Urine RBC 1-5/hpf Urine WBC 0-1/hpf Ur Squamous Epith Cells 1-5 /hpf Urine Bacteria Few (2-10) H Ur Culture Indicated? Cult not indicated Chlamy pneumoniae PCR Adenovirus (PCR) B.parapertussis DNA PCR Coronavirus OC43 (PCR) Coronavirus HKU1 (PCR) Coronavirus 229E (PCR) Coronavirus NL63 (PCR) Human Metapneumovir PCR Influenza Type A (PCR) Influenza Type B (PCR) M. pneumoniae (PCR) Parainfluenza 1 (PCR) Parainfluenza 2 (PCR) Parainfluenza 3 (PCR) Parainfluenza 4 (PCR) RSV (PCR) Entero/Rhino (PCR) 03/04/19 03/04/19 03/04/19 00:32 05:31 05:31 WBC 5.0 RBC 3.93 L Hgb 9.2 L Hct 28.5 L MCV 72.5 L MCH 23.3 L MCHC 32.2 RDW 17.5 H Plt Count 187 Neut % (Auto) 89.3 H Lymph % (Auto) 7.2 L [place] % (Auto) 3.3 Eos % (Auto) 0.0 L Baso % (Auto) 0.2 Neut # (Auto) 4500 Lymph # (Auto) 400 L [place] # (Auto) 200 Eos # (Auto) 0 Baso # (Auto) 0 ABG pH ABG pCO2 ABG pO2 ABG HCO3 ABG Total CO2 ABG O2 Saturation ABG Base Excess FiO2 Sodium 138 Potassium 3.7 Chloride 104 Carbon Dioxide 21 L BUN 9 Creatinine 0.70 Estimated GFR > 60.0 BUN/Creatinine Ratio 12.9 Glucose 206 H Lactate Calcium 8.8 Magnesium Total Bilirubin AST ALT Alkaline Phosphatase Total Creatine Kinase CK-MB (CK-2) CK-MB (CK-2) Rel Index Troponin I B-Natriuretic Peptide Total Protein Albumin Globulin Albumin/Globulin Ratio Procalcitonin Urine RBC Urine WBC Ur Squamous Epith Cells Urine Bacteria Ur Culture Indicated? Chlamy pneumoniae PCR Not detected Adenovirus (PCR) Detected H B.parapertussis DNA PCR Not detected Coronavirus OC43 (PCR) Not detected Coronavirus HKU1 (PCR) Not detected Coronavirus 229E (PCR) Not detected Coronavirus NL63 (PCR) Not detected Human Metapneumovir PCR Not detected Influenza Type A (PCR) Not detected Influenza Type B (PCR) Not detected M. pneumoniae (PCR) Not detected Parainfluenza 1 (PCR) Not detected Parainfluenza 2 (PCR) Not detected Parainfluenza 3 (PCR) Not detected Parainfluenza 4 (PCR) Not detected RSV (PCR) Not detected Entero/Rhino (PCR) Not detected Assessment & Plan Assessment & Plan narrative: 33 y.o. female with past medical history of obesity hyperventilation syndrome, RONNY noncompliant with CPAP, hypertension, morbid obes ity, anxiety and depression, PCOS presented to emergency department with shortness of breath and fevers. She was found to have viral pneumonia and admitted for further management. 1. Viral pneumonia, present on admission, acute -patient is hemodynamically stable, afebrile -no leukocytosis, lactic acid elevation, or abnormal procalcitonin -PCR viral panel was positive for adenovirus -CTA PE revealed: 1. No central pulmonary malaise. Distal subsegmental branches of bilateral pulmonary arteries are suboptimally opacified. 2. Moderate size air space consolidation involving posterior aspect of left upper lobe and anterior aspect of left lower lobe adjacent to oblique fissure. Extensive smaller airspace opacities throughout bilateral lung marie following bronchovascular distribution suggestive of extensive bilateral bronchopneumonia. Trace left pleural effusion is seen. No gross pneumothorax. Airway is patent. 3. Mildly enlarged mediastinal lymph nodes suggestive of reactive inflammatory nodes. -continue IV ceftriaxone 1 gram daily and oral azithromycin 500 mg po daily -pending blood and sputum cultures -O2 therapy as needed, titrate off when possible 2. Obesity associated hypoventilation syndrome, present on admission, stable -with a normal ABG on admission -O2 therapy as needed, titrate off when possible -Patient is intollerant to CPAP machine -Continue nebs/levalbuterol as needed 3. Essential hypertension, present on admission, chronic -blood pressure is stable -Continue home dose of amlodipine 10 mg daily 4. PCOS, chronic, present on admission -Patient is on OCP therapy Dispo: continue to treat viral pneumonia VTE Prophylaxis: enoxaparin 40 mg daily Disposition: likely discharge to home Code status: Full code Quality VTE Deep Vein Thrombosis/Pulmonary Embolism Present on Admission: No
--- NOTE | 2019-03-04 12:31 | CM.DANOTE ---
DCP/Assessment: Reviewed chart. Patient is a 33yr old female admitted to [facility] with pneumonia. PCP is Dr. Mccarthy. Primary payor is [employer]. Met with patient explained CM/SW role. Patient sitting in recliner with [address] Patient currently on precautions. Patient very pleasant during interview. Patient has h/o morbid obesity. Patient denies previous hospitalizations. Patient reports that she resides with her spouse and 4 children ranging in ages 2-12. All children are related but none biological. Patient reports that her brother's significant other is expecting another baby next month. Patient and spouse plan to adopt. 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 At this time, patient does not anticipate any d/c planning needs. Patient reports all four children are being cared for by her Mother during hospitalization. Notified patient that CM team would continue to follow if needs were to arise. Patient aware and agreeable. P: Home when stable. STEVE Schaefer Discharge Planning/Care Management CM Discharge Assessment Start: 03/04/19 12:27 Freq: Status: Active Protocol: Document 03/04/19 12:28 KJS (Rec: 03/04/19 12:30 KJS [id number]) Discharge Planning Assessment Assigned Manager Discovery STEVE Schaefer Contact Information Elijah Norwood # [phone] Advance Directives? No History Provided By Patient Medical Record Prior Living Arrangements House Household Members spouse Type of transporation used prior to Drives own vehicle admit Independent with ADL's Yes Is patient alert and oriented? Yes Caregiver for Another Yes: Has 4 children she and her care for. Another on the way next month. Barriers to Discharge No Discharge Plan Home Transportation Arrangement Family to provide transport when patient is medically stable. Additional Comment No current referrals indicated . Whiteboard Updated in Patient Room with Yes name and ext. # of Manager Discovery Review Status In Process Next Review Type Continued Stay Review
--- NOTE | 2019-03-04 12:56 | PC.NURSE ---
Shift summary: Alert and oriented X3. Intermittent cough, occasionally productive. Reports her breathing feels a little better than when I came in. Becomes quite short of breath with minimal exertion and is good about resting. SpO2 on 2L HFNC 93-96%. Lungs with fine crackles RLL, clear and diminished otherwise. HRR, still tachy in the low 100's. Denies fever, chills or body aches. She was too vinyl dipper the hospital gown so we let her change into her own nightgown. She is up in the chair and is going to try to sleep (hasn't slept well in days). Calls appropriately, light in reach.
[2019-03-04] MEDS: CALCIUM CARBONATE 500 MG TAB PO (19:15)
[2019-03-04] MEDS: CEFTRIAXONE 1 GM/50 ML FROZ.PIGGY IV (22:52)
[2019-03-05] VITALS (13 sets, daily range): BP systolic 115–147; BP diastolic 54–98; PULSE 92–110; RESP 15–24; TEMP 36.3–36.7; O2SAT 93–99
--- NOTE | 2019-03-05 00:29 | PC.NURSE ---
Patient is alert and oriented. Breath sounds remain diminished but not as tight sounding and now with expiratory rhonchi in bilateral mid/lower lobes. Continues with non productive cough. Remains SOB at rest/with exertion but states it has improved. Oxygen still at 2L/min per NC with sat of 96%. HRR but tachy; patient states is chronically tachy at 100-115 bpm. Denies nausea. BT present; reports she has been having liquid stools. Chronic urinary frequency but denies dysuria or urgency. Up in room independently; currently sitting in recliner. Remains on contact/ droplet precautions for adenovirus positive. Fall risk score is moderate. Denies pain.
[2019-03-05] MEDS: SODIUM CHLORIDE 0.45% 1,000 ML 125 ML IV (03:46)
[2019-03-05 05:35] LABS: Add Manual Diff / Slide Review NO; Basophils Absolute Auto 100 /uL (0-100); Basophils Percent Auto 2.7 % (0-2); Eosinophils Absolute Auto 0 /uL (0-450); Eosinophils Percent Auto 0.4 % (2-4); Hematocrit 27.9 % (36-46); Lymphocytes Absolute Auto 500 /uL (1100-4500); Lymphocytes Percent Auto 11.2 % (25-40); Mean Corpuscular HGB Conc 32.3 % (30-36); Mean Corpuscular Hemoglobin 23.4 PG (26-34); Mean Corpuscular Volume 72.4 fL (80-100); Monocytes Absolute Auto 500 /uL (0-900); Monocytes Percent Auto 12.6 % (3-14); Neutrophils Absolute Auto 3100 /uL (1500-7000); Neutrophils Percent Auto 73.1 % (50-75); Platelet Count 204 X10^3/uL (150-400); Red Blood Cell Count 3.86 X10^6/uL (4.0-5.2); Red Cell Distribution Width 17.8 % (11.6-14.8); White Blood Cell Count 4.3 X10^3/uL (4.5-11.0)
[2019-03-05 05:42] LABS: BUN Creatinine Ratio 23.3 (6-22); Blood Urea Nitrogen 14 mg/dL (7-17); Calcium 9.3 mg/dL (8.4-10.2); Carbon Dioxide 26 mmol/L (22-32); Chloride 107 mmol/L (98-107); Estimated Glomerular Filt Rate > 60.0 mL/min (>60); Glucose 151 mg/dL (70-100); HEMOLYSIS < 15 (0-50); Potassium 4.2 mmol/L (3.4-5.1); Sodium 141 mmol/L (137-145)
[2019-03-05] MEDS: ALBUTEROL/IPRATROPIUM 3 ML AMPUL INH (07:48)
[2019-03-05] MEDS: AZITHROMYCIN 250 MG TABLET 500 MG PO (08:01)
[2019-03-05] MEDS: AMLODIPINE 5 MG TABLET PO (08:01)
--- NOTE | 2019-03-05 10:45 | P.PN_ITS ---
Subjective Date Patient Seen: 03/05/19 Time Patient Seen: 10:41 Interval history: Follow up on viral pneumonia Patient seen at bedside. She is doing better as far as respiratory status, and oxygenation has improved so she has been weaned off of oxygen. However, overnight patient developed 7 large loose bowel movements and continues to have frequent bowel movement episodes. Her cough, rhinorrhea, and sore throat are improving. Exam Vital Signs (past 8 hours): - 03/05/19 04:00 03/05/19 07:47 03/05/19 08:00 Temperature 97.7 F 97.3 F L Pulse Rate 92 H 104 H 102 H Respiratory Rate 24 18 16 Blood Pressure 139/86 115/70 Pulse Oximetry 96 96 102 H 03/05/19 08:22 03/05/19 08:53 Temperature Pulse Rate Respiratory Rate Blood Pressure Pulse Oximetry 95 95 Oxygen Delivery Method Room Air Oxygen Flow Rate 1 Narrative Exam Narrative: General: No acute distress, A/O x3 HEENT: PERRLA and EOMI bilaterally. Moist mucous membranes. No oropharyngeal erythema. Nasal cannula in place Neck: Supple, obese CV: Regular rate rhythm, no murmurs or gallops Respiratory: Coarse breath sounds in the left lung throughout GI: Obese, positive bowel sounds, hyperactive, no organomegaly Musculoskeletal: Moves all extremities Extremities: No edema, 2+ pulses Skin: Warm to touch, no bruising or lesions Neuro: No focal deficits, AO x3 Psych: Appropriate mood and behavior Objective Labs Result Diagrams: 03/05/19 05:20 03/05/19 05:20 Labs: Laboratory Results - last 24 hr 03/05/19 03/05/19 05:20 05:20 WBC 4.3 L RBC 3.86 L Hgb 9.0 L Hct 27.9 L MCV 72.4 L MCH 23.4 L MCHC 32.3 RDW 17.8 H Plt Count 204 Neut % (Auto) 73.1 Lymph % (Auto) 11.2 L [place] % (Auto) 12.6 Eos % (Auto) 0.4 L Baso % (Auto) 2.7 H Neut # (Auto) 3100 Lymph # (Auto) 500 L [place] # (Auto) 500 Eos # (Auto) 0 Baso # (Auto) 100 Sodium 141 Potassium 4.2 Chloride 107 Carbon Dioxide 26 BUN 14 Creatinine 0.60 Estimated GFR > 60.0 BUN/Creatinine Ratio 23.3 H Glucose 151 H Calcium 9.3 Assessment & Plan Assessment & Plan narrative: 33 y.o. female with past medical history of obesity hyperventilation syndrome, RONNY noncompliant with CPAP, hypertension, morbid obesity, anxiety and depression, PCOS presented to emergency department with shortness of breath and fevers. She was found to have viral pneumonia and adm itted for further management. Developed frequent bowel movements. 1. Viral pneumonia, present on admission, acute, improving -patient is hemodynamically stable, afebrile -no leukocytosis, lactic acid elevation, or abnormal procalcitonin -PCR viral panel was positive for adenovirus -O2 titrated off, saturating well -CTA PE revealed: 1. No central pulmonary malaise. Distal subsegmental branches of bilateral pulmonary arteries are suboptimally opacified. 2. Moderate size air space consolidation involving posterior aspect of left upper lobe and anterior aspect of left lower lobe adjacent to oblique fissure. Extensive smaller airspace opacities throughout bilateral lung marie following bronchovascular distribution suggestive of extensive bilateral bronchopneumonia. Trace left pleural effusion is seen. No gross pneumothorax. Airway is patent. 3. Mildly enlarged mediastinal lymph nodes suggestive of reactive inflammatory nodes. -continue IV ceftriaxone 1 gram daily and oral azithromycin 500 mg po daily. Add on Probiotic considering the onset of frequent BM -pending blood cultures. Unable to obtain sputum cultures 2. Frequent BM, acute -No sign of uprise infection such as leukocytosis, but patient is on antibiotics -DDx: Antibiotic side effect vs adenovirus gastroenteritis vs CDiff -Continue hydration at this time -Probiotic implemented -Ruling out CDiff and then consider imodium 3. Obesity associated hypoventilation syndrome, present on admission, stable -with a normal ABG on admission -O2 titrated off, saturating well -Patient is intollerant to CPAP machine -Continue nebs/levalbuterol as needed 4. Essential hypertension, present on admission, chronic -blood pressure is stable -Continue home dose of amlodipine 10 mg daily 4. PCOS, chronic, present on admission -Patient is on OCP therapy Dispo: continue to treat viral pneumonia. Ruling out C Diff infection. VTE Prophylaxis: enoxaparin 40 mg daily Code status: Full code Quality VTE Deep Vein Thrombosis/Pulmonary Embolism Present on Admission: No
[2019-03-05] MEDS: LACTOBACILLUS ACIDOPHILUS TABLET 1 EACH PO (10:49)
[2019-03-05] MEDS: LEVALBUTEROL 1.25 MG/0.5 ML NEB INH ×3 (11:37→20:51)
--- NOTE | 2019-03-05 11:38 | PC.NURSE ---
Day Shift- Report rec'd from Angie PruittRN at bedside, pt currently lying on left side in bed. IVF infusing well. Call light within reach. Denies any respiratory distress at this time. Respirations regular and shallow on RA. Intermittent dry to moist cough non-productive. Spoke with RT for update around 1135, plan for acapella breathing tool for pt.
[2019-03-05] MEDS: SODIUM CHLORIDE 0.45% 1,000 ML 80 ML IV (12:06)
[2019-03-05 14:54] LABS: Clostridium Difficile Tox PCR Negative for C. diff
[2019-03-05] MEDS: guaiFENesin Solution 100 MG/5 ML UDC 400 MG PO ×2 (18:00→21:51)
[2019-03-05] MEDS: SIMETHICONE 80 MG TABLET PO ×2 (18:05→21:56)
[2019-03-05] MEDS: ENOXAPARIN 40 MG/0.4 ML SYRINGE SUBCUT (21:50)
[2019-03-05] MEDS: KETOROLAC 30 MG/ML VIAL IV (21:51)
--- NOTE | 2019-03-05 22:36 | PC.NURSE ---
Addendum entered by Alayna Hickman R.N. 03/05/19 23:32: Compression stockings per pt request. Original Note: Shift summary- Pt on RA currently with SpO2 93%, denies SOB at rest, but some with activity, LS bilat bases course and ronchi moreso to left isde. Pt is in recliner and window seat/bed trying to get comfortable. New orders for simethicone for bloating gas pain intermittently, which pt reports is helping with bloating gas pain. Guaifenisen syrup 400mg Q-4hr PRN. Pt is coughing, but still non-productive. LAC 1/2 NS @ 80 infusing. Pt C/O dorsal foot pain bilat, bilat feet are 2+ pitting edema with pain to palpate, pt reports they have never been puffy like this before. Indep in room to BRP. 2645- New orders to saline lock fluids, and either wear SCD's or cristopher hose.
[2019-03-05] MEDS: CEFTRIAXONE 1 GM/50 ML FROZ.PIGGY IV (23:37)
[2019-03-06] VITALS: BP 145/87; PULSE 104; RESP 20; TEMP 36.2; O2SAT 96
[2019-03-06 03:14] VITALS: BP 138/84; PULSE 74; RESP 20; TEMP 36.4; O2SAT 99
[2019-03-06 05:45] LABS: Add Manual Diff / Slide Review NO; Basophils Absolute Auto 0 /uL (0-100); Basophils Percent Auto 0.4 % (0-2); Eosinophils Absolute Auto 100 /uL (0-450); Eosinophils Percent Auto 1.3 % (2-4); Hematocrit 25.4 % (36-46); Hemoglobin 8.9 g/dL (12.0-16.0); Lymphocytes Absolute Auto 1100 /uL (1100-4500); Lymphocytes Percent Auto 22.7 % (25-40); Mean Corpuscular HGB Conc 34.9 % (30-36); Mean Corpuscular Volume 71.6 fL (80-100); Monocytes Absolute Auto 600 /uL (0-900); Monocytes Percent Auto 11.9 % (3-14); Neutrophils Absolute Auto 3200 /uL (1500-7000); Neutrophils Percent Auto 63.7 % (50-75); Platelet Count 195 X10^3/uL (150-400); Red Blood Cell Count 3.55 X10^6/uL (4.0-5.2); Red Cell Distribution Width 17.8 % (11.6-14.8); White Blood Cell Count 5.1 X10^3/uL (4.5-11.0)
[2019-03-06 05:59] LABS: BUN Creatinine Ratio 26.7 (6-22); Blood Urea Nitrogen 16 mg/dL (7-17); Calcium 8.4 mg/dL (8.4-10.2); Carbon Dioxide 26 mmol/L (22-32); Chloride 106 mmol/L (98-107); Estimated Glomerular Filt Rate > 60.0 mL/min (>60); Glucose 88 mg/dL (70-100); HEMOLYSIS < 15 (0-50); Potassium 3.4 mmol/L (3.4-5.1); Sodium 140 mmol/L (137-145)
[2019-03-06 07:40] VITALS: BP 143/93; PULSE 70; RESP 20; TEMP 36.6; O2SAT 93
[2019-03-06 09:00] VITALS: O2SAT 94
[2019-03-06] MEDS: ENOXAPARIN 40 MG/0.4 ML SYRINGE SUBCUT (09:01)
[2019-03-06] MEDS: LACTOBACILLUS ACIDOPHILUS TABLET 1 EACH PO (09:01)
[2019-03-06] MEDS: AZITHROMYCIN 250 MG TABLET 500 MG PO (09:01)
[2019-03-06] MEDS: AMLODIPINE 5 MG TABLET PO (09:01)
[2019-03-06] MEDS: LEVALBUTEROL 1.25 MG/0.5 ML NEB INH (09:09)
[2019-03-06 09:10] VITALS: PULSE 86; RESP 16; O2SAT 94
[2019-03-06] MEDS: guaiFENesin Solution 100 MG/5 ML UDC 400 MG PO (09:57)
--- NOTE | 2019-03-06 11:23 | PC.NURSE ---
Addendum entered by Varsha Hall R.N. 03/06/19 14:57: DC - reviewed dc instructions with pt, hep lock dc'd, scripts provided, when spouse arrived, belongings gathered, including clothing, bag and cell phone, tsf to wc and escorted to spouse's car by project construction manager. Addendum entered by Varsha Hall R.N. 03/06/19 12:45: MEDS - IV lasix and oral K admin. Original Note: AM NOTE - pt up to chair for breakfast, denies pain, occassional congested cough, bs dim, some open mouth breathing, unlabored, ra 94%, hr 96, does state feet feel swollen, enc pt to keep elev in chair, RT notified and in for tmt this am, given guif for cough.
[2019-03-06] MEDS: FUROSEMIDE 40 MG/4 ML VIAL IV (11:41)
[2019-03-06] MEDS: POTASSIUM CHLORIDE 20 MEQ TAB 40 MEQ PO (11:41)
--- NOTE | 2019-03-06 13:02 | PM.DS.1 ---
History of Present Illness Date Patient Seen: 03/06/19 Time Patient Seen: 13:02 Chief complaint: pneumonia x5 days Narrative: 33 y.o. female with past medical history of obesity hyperventilation syndrome, RONNY noncompliant with CPAP, hypertension, morbid obesity, anxiety and depression, PCOS presented to emergency department with shortness of breath and fevers. Patient stated that for the past 5 days she has been increasingly getting short of breath, with increasing dyspnea on exertion. Patient also complained of green/yellow/brown colored sputum productive cough but denied any chest tightness. Patient has been feeling weak and feverish, with intermittent chills. Patient has not been able to lay supine due to her shortness of breath for the past 2 days prior to the admission. Patient denied any loss of consciousness, headache, blurry vision, dizziness. Patient denied any chest pain. Patient denied vomiting however has been nauseous. Patient denied any diarrhea or constipation. She denied any sick contacts or recent travel. Patient states that she was seen by outside doctor on 03/01 during which time she was given Levaquin to treat pneumonia. However because her condition did not improve, she came to emergency department. Discharge Providers Date of admission: 03/03/19 22:41 Discharge Date: 03/06/19 Primary care physician: Abdiel Mccarthy MD Consults: 03/03/19 19:54 Consult to Respiratory Therapy Evaluate & Treat Comment: Physician Instructions: Evaluate and treat 03/03/19 23:43 Consult to Respiratory Therapy Evaluate & Treat Comment: Physician Instructions: Evaluate and treat Discharge provider: Karine Mcbride MD Summary Hospital Course: In ED, patient's vitals revealed temperature 98.7? F, pulse 130, respiratory rate 26, blood pressure 145/125, saturating 88% on room air which improved to 93% on 2 L oxygen. Lab work was pertinent for normal WBC of 4.9, but slightly low hemoglobin of 8.8, hematocrit 36.9. Blood glucose was elevated at 116, and sodium was low 136. She was found to have viral pneumonia and admitted for further management. Developed frequent bowel movements. BNP was less than 100, troponin was 0.015, procalcitonin was .11 and lactate was 1.2. CT angio PE protocol was performed which revealed no pulmonary emboli, however moderate size airspace consolidations involving posterior aspect of left upper lobe and anterior aspect of left lower lobe adjacent to oblique fissure. Extensive smaller airspace opacities throughout bilateral lung marie following bronchovascular distribution suggestive of extensive bilateral bronchopneumonia. Trace left pleural effusion was seen. No gross pneumothorax. Patient was started on IV fluid, ceftriaxone/azithromycin IV, and transferred to [facility] Medical Floor for further management of pneumonia. Once on the floors, patient's ceftriaxone/azithromycin IV were continued. IV fluids were also continued. PCR viral panel was performed, which came back positive as adenovirus, and patient was placed on isolation. Blood cultures came back negative and sputum culture was unable to be produced. Patient's condition has improved over the course of hospital stay and she was weaned off oxygen successfully. However, on 03/05 patient developed volume is bowel movements. C diff, stool WBCs, stool cultures were collected which all came back negative. Patient continued on IV fluid hydration and started on probiotic, and diarrhea has resolved at the end of 03/05. As patient completed azithromycin 500 mg IV daily x2 doses, she will be discharged home on cefuroxime 500 mg q.12 hours x4 more days and azithromycin 500 mg x1 day. Patient will also be given probiotic, and nebulizer prescription. She is to follow up with her primary care provider within 7-10 days of discharge. Exam Vital Signs (past 8 hours): - 03/06/19 07:40 03/06/19 09:00 03/06/19 09:10 Temperature 97.8 F Pulse Rate 70 86 Respiratory Rate 20 16 Blood Pressure 143/93 H Pulse Oximetry 93 94 94 Oxygen Delivery Method Room Air Oxygen Flow Rate 2 Narrative Exam Narrative: General: No acute distress, A/O x3 HEENT: PERRLA and EOMI bilaterally. Moist mucous membranes. No oropharyngeal erythema. Nasal cannula in place Neck: Supple, obese CV: Regular rate rhythm, no murmurs or gallops Respiratory: Coarse breath sounds in the left lung throughout GI: Obese, positive bowel sounds, hyperactive, no organomegaly Musculoskeletal: Moves all extremities Extremities: No edema, 2+ pulses Skin: Warm to touch, no bruising or lesions Neuro: No focal deficits, AO x3 Psych: Appropriate mood and behavior Objective Labs Result Diagrams: 03/06/19 05:35 03/06/19 05:35 Labs: Laboratory Results - last 24 hr 03/05/19 03/06/19 03/06/19 12:50 05:35 05:35 WBC 5.1 RBC 3.55 L Hgb 8.9 L Hct 25.4 L MCV 71.6 L MCH 25.0 L MCHC 34.9 RDW 17.8 H Plt Count 195 Neut % (Auto) 63.7 Lymph % (Auto) 22.7 L [place] % (Auto) 11.9 Eos % (Auto) 1.3 L Baso % (Auto) 0.4 Neut # (Auto) 3200 Lymph # (Auto) 1100 [place] # (Auto) 600 Eos # (Auto) 100 Baso # (Auto) 0 Sodium 140 Potassium 3.4 Chloride 106 Carbon Dioxide 26 BUN 16 Creatinine 0.60 Estimated GFR > 60.0 BUN/Creatinine Ratio 26.7 H Glucose 88 Calcium 8.4 C. difficile Tox (PCR) Negative for c. diff Discharge Plan Discharge Plan Discharge Problem: Pneumonia Patient Disposition: Home Discharge comment: Please follow-up with your primary care provider within 7-10 days of discharge Please continue to take your antibiotics to complete the course Discharge Med Rec/Prescriptions Prescriptions: New ipratropium-albuterol 0.5 mg-3 mg(2.5 mg base)/3 mL solution for nebulization 3 ml INHALATION Q6-8H PRN (Reason: shortness of breath or wheezing) Qty: 90 RF: 0 cefuroxime axetil 500 mg tablet 500 mg PO Q12H Qty: 10 RF: 0 azithromycin 500 mg tablet 500 mg PO DAILY 1 Days RF: 0 Probiotic 3 billion cell capsule 3,000 mmu cells PO DAILY Qty: 7 RF: 0 Continued ibuprofen 800 MG tablet 800 mg PO PRN PRNQty: 90 RF: 0 oxkbjdd-ruirdjeody-[id number]-caff [Fiorinal-Codeine #3] 1 EACH capsule 1 cap PO Q6HP PRNQty: 30 RF: 0 amlodipine [Norvasc] 5 mg tablet 5 mg PO DAILY Qty: 90 RF: 1 desogestrel-ethinyl estradiol 0.15-0.03 mg tablet 1 tab PO DAILY Qty: 84 RF: 0 metronidazole 0.75 % gel 1 applictn TOP BID 5 Days Qty: 60 RF: 0 tramadol 50 mg tablet 50 mg PO DAILY PRN (Reason: pain) RF: 0 Discontinued levofloxacin 750 mg tablet 750 mg PO DAILY Qty: 7 RF: 0 Follow up/Referrals: Abdiel Mccarthy MD [Primary Care Provider] - Provider Discharge Instructions Diet: Regular, Low-sodium and Low-cholesterol Visit Report/Discharge Packet Instructions: DI for Pneumonia -- Adult Discharge Data Primary Care Provider: Abdiel Mccarthy Attending Provider: Margarita Collins Admit Date/Time: 03/03/19 22:41 Quality VTE Deep Vein Thrombosis/Pulmonary Embolism Present on Admission: No
== END 2019-03-06 14:45 | disposition home or self-care (01) | DRG 193 ==
LOC: ED 19:43 → AC 22:43
PROVIDERS: Internal Medicine; Admitting Provider Nurse Practitioner Family; Emergency Provider Emergency Medicine; PCP Student in an Organized Health Care Education/Training Program; Visit Provider Nurse Practitioner Family
DX: J12.0 Adenoviral pneumonia (principal); J96.01 Acute respiratory failure with hypoxia; E66.2 Morbid (severe) obesity with alveolar hypoventilation; Z68.43 Body mass index [BMI] 50.0-59.9, adult; I10 Essential (primary) hypertension; Z87.891 Personal history of nicotine dependence
CPT/HCPCS: 36415; 36591; 36600; 71275; 80048; 80053; 81003; 81015; 81025; 82550; 82553; 82805; 83605; 83735; 83880; 84145; 84484; 85025; 87040; 87045; 87205; 87493; 87633; 87899; 93005; 93010; 94640; 94760; 94762; 96361; 96365; 96367; 96375; 99285; J1650; J1885; J1940; J2930; J7050; J7613; J7614

== ENCOUNTER → 2019-05-28 15:56 | Outpatient (CLI) | payer OTHER, MEDICAID, SELFPAY ==
[2019-04-23 09:26] VITALS: BMI 58.6
--- NOTE | 2019-05-28 15:59 | DI.RAD.S_ITS ---
PROCEDURE: XR CHEST 2V INDICATIONS: COUGHING TECHNIQUE: 2 views of the chest were acquired. COMPARISON: [facility], , XR CHEST 2V, 03/01/2019, 15:58. [facility], , CHEST 2 VIEW, 11/13/2014, 15:47. FINDINGS: Surgical changes and devices: None. Lungs and pleura: Lungs are clear. No pleural effusions or pneumothorax. Mediastinum: Mediastinal contours are normal. Heart size is normal. Bones and chest wall: No suspicious bony abnormalities. Soft tissues appear unremarkable. IMPRESSION: Normal for age and large body habitus, source of current persistent cough symptoms is not seen. Dictated by: Faraz Amin M.D. on 05/28/2019 at 17:35 Approved by: Faraz Amin M.D. on 05/28/2019 at 17:35
== END ==
PROVIDERS: PCP Student in an Organized Health Care Education/Training Program; Visit Provider Student in an Organized Health Care Education/Training Program
DX: R05 Cough (principal); R06.02 Shortness of breath
CPT/HCPCS: 71046

== ENCOUNTER → 2019-06-03 09:49 | Outpatient (CLI) | payer OTHER, MEDICAID, SELFPAY ==
[2019-04-23 09:26] VITALS: BMI 58.6
[2019-06-03 11:28] LABS: Add Manual Diff / Slide Review NO; Basophils Absolute Auto 100 /uL (0-100); Basophils Percent Auto 0.8 % (0-2); Eosinophils Absolute Auto 200 /uL (0-450); Eosinophils Percent Auto 2.6 % (2-4); Hematocrit 40.1 % (36-46); Hemoglobin 13.2 g/dL (12.0-16.0); Lymphocytes Absolute Auto 2200 /uL (1100-4500); Lymphocytes Percent Auto 26.1 % (25-40); Mean Corpuscular HGB Conc 32.9 % (30-36); Mean Corpuscular Hemoglobin 23.9 PG (26-34); Mean Corpuscular Volume 72.6 fL (80-100); Monocytes Absolute Auto 700 /uL (0-900); Monocytes Percent Auto 8.4 % (3-14); Neutrophils Absolute Auto 5200 /uL (1500-7000); Neutrophils Percent Auto 62.1 % (50-75); Platelet Count 257 X10^3/uL (150-400); Red Blood Cell Count 5.52 X10^6/uL (4.0-5.2); Red Cell Distribution Width 18.7 % (11.6-14.8); White Blood Cell Count 8.3 X10^3/uL (4.5-11.0)
[2019-06-03 11:39] LABS: HEMOLYSIS < 15 (0-50); Iron 59 ug/dL (37-170)
[2019-06-03 11:41] LABS: Alanine Aminotransferase 23 IU/L (9-52); Albumin 4.5 g/dL (3.5-5.0); Albumin Globulin Ratio 1.5 (1.0-2.8); Alkaline Phosphatase 103 U/L (38-126); Aspartate Aminotransferase 24 IU/L (14-36); BUN Creatinine Ratio 18.6 (6-22); Bilirubin Total 0.5 mg/dL (0.2-1.3); Blood Urea Nitrogen 13 mg/dL (7-17); Carbon Dioxide 25 mmol/L (22-32); Chloride 103 mmol/L (98-107); Estimated Glomerular Filt Rate > 60.0 mL/min (>60); Globulin 3.1 g/dL (1.7-4.1); Glucose 103 mg/dL (70-100); HEMOLYSIS < 15 (0-50); Potassium 4.4 mmol/L (3.4-5.1); Sodium 141 mmol/L (137-145); Total Protein 7.6 g/dL (6.3-8.2)
[2019-06-03 11:50] LABS: Percent Iron Saturation 15 % (15-50); Total Iron Binding Capacity 392 ug/dL (265-497); Transferrin 329 mg/dL (206-381)
[2019-06-03 12:13] LABS: Thyroid Stimulating Hormone 1.66 uIU/mL (0.47-4.68)
[2019-06-03 12:15] LABS: Ferritin 21.2 ng/mL (6.27-137)
[2019-06-03 12:29] LABS: Vitamin B12 868 pg/mL (239-931)
== END ==
PROVIDERS: PCP Student in an Organized Health Care Education/Training Program; Visit Provider Family Medicine
DX: I10 Essential (primary) hypertension (principal); E78.5 Hyperlipidemia, unspecified; G47.33 Obstructive sleep apnea (adult) (pediatric); E28.2 Polycystic ovarian syndrome; F41.8 Other specified anxiety disorders; Z86.69 Personal history of other diseases of the nervous system and sense organs; E66.01 Morbid (severe) obesity due to excess calories
CPT/HCPCS: 36415; 80053; 82607; 82728; 83540; 83550; 84443; 85025

== ENCOUNTER → 2019-07-04 15:11 | Outpatient (CLI) | payer OTHER, MEDICAID, SELFPAY ==
[2019-04-23 09:26] VITALS: BMI 58.6
--- NOTE | 2019-07-04 15:15 | DI.RAD.S_ITS ---
PROCEDURE: XR FOOT LT MIN 3V INDICATIONS: pain and difficulty walking TECHNIQUE: 3 views of the foot were acquired. COMPARISON: [facility], , FOOT 3V LEFT, 04/09/2015, 18:16. FINDINGS: Bones: No fractures or dislocations. No suspicious bony lesions. Prominent calcaneal spur. Soft tissues: No tibiotalar joint effusion. Achilles tendon appears normal. IMPRESSION: No visualized acute fracture or dislocation. However, if clinical concern and/or pain persist, short interval imaging followup in 7-10 days is recommended, as occult injury cannot be definitively excluded. Dictated by: Michelle Rangel M.D. on 07/04/2019 at 17:56 Approved by: Michelle Rangel M.D. on 07/04/2019 at 17:56
== END ==
PROVIDERS: PCP Student in an Organized Health Care Education/Training Program; Visit Provider Student in an Organized Health Care Education/Training Program
DX: M79.672 Pain in left foot (principal); R26.2 Difficulty in walking, not elsewhere classified
CPT/HCPCS: 73630

== ENCOUNTER → 2020-02-26 10:45 | Outpatient (CLI) | payer OTHER, MEDICAID, SELFPAY ==
[2019-04-23 09:26] VITALS: BMI 58.6
[2020-02-26 11:35] LABS: Add Manual Diff / Slide Review NO; Basophils Absolute Auto 100 /uL (0-100); Basophils Percent Auto 0.8 % (0-2); Eosinophils Absolute Auto 200 /uL (0-450); Eosinophils Percent Auto 2.4 % (2-4); Hematocrit 38.3 % (36-46); Hemoglobin 12.9 g/dL (12.0-16.0); Lymphocytes Absolute Auto 1600 /uL (1100-4500); Lymphocytes Percent Auto 25.1 % (25-40); Mean Corpuscular HGB Conc 33.7 % (30-36); Mean Corpuscular Hemoglobin 26.1 PG (26-34); Mean Corpuscular Volume 77.6 fL (80-100); Monocytes Absolute Auto 500 /uL (0-900); Monocytes Percent Auto 7.6 % (3-14); Neutrophils Absolute Auto 4200 /uL (1500-7000); Neutrophils Percent Auto 64.1 % (50-75); Platelet Count 244 X10^3/uL (150-400); Red Blood Cell Count 4.94 X10^6/uL (4.0-5.2); Red Cell Distribution Width 14.7 % (11.6-14.8); White Blood Cell Count 6.5 X10^3/uL (4.5-11.0)
[2020-02-26 12:17] LABS: Alanine Aminotransferase 18 IU/L (<35); Albumin 4.4 g/dL (3.5-5.0); Albumin Globulin Ratio 1.6 (1.0-2.8); Alkaline Phosphatase 73 U/L (38-126); Aspartate Aminotransferase 18 IU/L (14-36); BUN Creatinine Ratio 21.5 (6-22); Bilirubin Total 0.4 mg/dL (0.2-1.3); Blood Urea Nitrogen 14 mg/dL (7-17); Calcium 9.8 mg/dL (8.4-10.2); Carbon Dioxide 24 mmol/L (22-32); Chloride 106 mmol/L (98-107); Cholesterol 174 mg/dL (140-199); Estimated Glomerular Filt Rate > 60.0 mL/min (>60); Globulin 2.7 g/dL (1.7-4.1); Glucose 118 mg/dL (70-100); HDL Cholesterol 40 mg/dL (40-60); HEMOLYSIS < 15 (0-50); LDL Cholesterol Calculated 77 mg/dL (<100); Potassium 4.3 mmol/L (3.4-5.1); Sodium 139 mmol/L (137-145); Total Protein 7.1 g/dL (6.3-8.2); Triglycerides 283 mg/dL (35-150)
[2020-02-26 12:21] LABS: Hemoglobin A1C% w Est Avg Glu 5.3 % (4.0-6.0)
[2020-03-04 11:17] LABS: Anti Mullerian Hormone 295 ng/mL (.)
== END ==
PROVIDERS: Obstetrics & Gynecology; PCP Family Medicine; Referring Provider Family Medicine; Visit Provider Family Medicine
DX: Z13.1 Encounter for screening for diabetes mellitus (principal); E66.01 Morbid (severe) obesity due to excess calories; E78.5 Hyperlipidemia, unspecified; I10 Essential (primary) hypertension; N97.0 Female infertility associated with anovulation; Z68.43 Body mass index [BMI] 50.0-59.9, adult
CPT/HCPCS: 36415; 80053; 80061; 82397; 83036; 85025

== ENCOUNTER 2020-02-28 23:16 | Emergency (ER) | payer OTHER, MEDICAID, SELFPAY ==
[2019-04-23 09:26] VITALS: BMI 58.6
[2020-02-28 23:42] VITALS: BP 133/79; PULSE 92; RESP 18; TEMP 37; O2SAT 99
--- NOTE | 2020-02-28 23:47 | ED_ITS ---
HPI - Extremity Problem General Chief complaint: Extremity Problem,Nontraumatic Stated complaint: pain in left calf all day Time Seen by Provider: 02/28/20 23:20 Source: patient Mode of arrival: Ambulatory Limitations: no limitations History of Present Illness HPI Narrative: 34-year-old female former smoker with history of hypertension presents with her sister and a chief complaint of a cramping pain in her left c lesli over the course of the day. She states that she went and got her toenails done at a salon up in [place] and had her feet elevated in awkward position and has had pain in her calf since. She went home and looked up symptoms on the Internet and is concerned she may have a clot. She does take control daily. She denies any redness, warmth or swelling of her calf. She denies any known injury. She denies any chest pain, shortness of breath or cough. She denies any recent travel MD Complaint: extremity pain Onset (ago): hour(s) Pain Consistency: constant Location: left and lower extremity Quality: aching Radiation: none Relieving factors: rest Exacerbating factors: weight bearing and palpation Associated symptoms: denies other symptoms Related Data Home Medications Medication Instructions Recorded Confirmed tramadol 50 mg tablet 50 mg PO DAILY PRN 12/04/18 02/26/20 amlodipine 5 mg tablet 5 mg PO DAILY 11/22/19 02/26/20 Bi-est compound TOPICAL 02/26/20 02/26/20 Progesterone compound TOPICAL 02/26/20 02/26/20 Testosterone compound TOPICAL 02/26/20 02/26/20 desogestrel 0.15 mg-ethinyl 1 tab PO DAILY 02/26/20 02/26/20 estradiol 0.03 mg tablet Previous Rx's Medication Instructions Recorded ibuprofen 800 mg PO PRN PRN #90 tab 08/16/16 labetalol 100 mg tablet 100 mg PO BEDTIME #90 tab 02/26/20 labetalol 100 mg tablet See Rx Instructions .ROUTE 02/26/20 .COMPLEX #15 tab Allergies Allergy/AdvReac Type Severity Reaction Status Date / Time adhesive [ADHESIVE] AdvReac Unknown RASH Verified 02/26/20 11:22 hydrocodone [HYDROCODONE] AdvReac Unknown headache Verified 02/26/20 11:22 Review of Systems Constitutional Constitutional: Denies chills, Denies fatigue, Denies fever(s), Denies frequent falls, Denies lethargy and Denies weakness Eyes Eyes: Denies change in vision, Denies eye discharge, Denies irritation and Denies loss of vision ENT Ears, Nose, Mouth, and Throat: Denies change in voice, Denies dizziness, Denies neck pain, Denies sore throat and Denies throat swelling Cardiovascular Cardiovascular: Denies chest pain, Denies irregular heart rhythm, Denies lightheadedness, Denies palpitations, Denies dyspnea, Denies dyspnea on exertion and Denies orthopnea Respiratory Respiratory: Denies cough, Denies dyspnea, Denies dyspnea on exertion and Denies wheezing Gastrointestinal Gastrointestinal: Denies abdominal pain, Denies change in bowel habits, Denies diarrhea, Denies nausea and Denies vomiting Musculoskeletal Musculoskeletal: Denies neck pain and Denies numbness Integumentary/Breasts Skin/Breast: Denies pruritus, Denies erythema, Denies rash and Denies wounds Neurologic Neurologic: Denies behavioral changes, Denies confusion, Denies dizziness, Denies frequent falls, Denies loss of vision, Denies numbness and Denies weakness Psychiatric Psychiatric: Denies anxiety, Denies behavioral changes, Denies confusion, Denies depression, Denies homicidal ideation and Denies suicidal ideation Endocrine Endocrine: Denies fatigue, Denies flushing and Denies palpitations Hematologic/Lymphatic Hematologic/Lymphatic: Denies easy bruising Allergic/Immunologic Allergic/Immunologic: Denies urticaria, Denies throat swelling and Denies wheezing Patient History Medical History Anxiety (Chronic) Chronic back pain (Chronic) DDD (degenerative disc disease), lumbar (Chronic) Depression (Chronic) Fatigue (Chronic) 0 (Resolved) Hypertension (Chronic) Hypoventilation associated with obesity syndrome (Acute) Morbid obesity with BMI of 50.0-59.9, adult (Chronic) Nocturnal hypoxemia (Chronic) PCOS (polycystic ovarian syndrome) (Chronic) Pneumonia (Acute) Snoring (Chronic) Surgical History History of tonsillectomy (Resolved) Family History Grandmother Coronary artery disease Mother Coronary artery disease Lung cancer Grandfather Coronary artery disease Unknown Hyperlipidemia Hypertension Coronary artery disease Depression Alcoholism Family/Other Hydrocephalus Social History household members: spouse Smoking Status: Former smoker alcohol intake: never substance use type: does not use Smoking Status: Former smoker Substance Use Type: does not use Exam Narrative Exam Narrative: GEN: AOx3 and in mild distress EYES: Pupils are equal, round, and reactive to light and accommodation. Extraoccular muscles are intact bilaterally. There is no subconjunctival hemorrhage or exudate. CHEST: Lungs are clear to auscultation bilaterally and free of wheezes, rales, or rhonchi. Heart rate is regular rhythm, there are no murmurs, clicks, rubs, or gallops. There is no chest wall tenderness. ABD: Abdomen is soft and nontender. There is no guarding or rebound. Bowel sounds are normal in all 4 quadrants. There is no mass or organomegaly. EXT: Mild calf tenderness to palpation. No redness, warmth or swelling. SKIN: Warm, pink, and dry. No erythema or rash Initial Vital Signs Initial Vital Signs: Vital Signs Temperature 98.6 F 02/28/20 23:42 Pulse Rate 92 H 02/28/20 23:42 Respiratory Rate 18 02/28/20 23:42 Blood Pressure 133/79 02/28/20 23:42 Pulse Oximetry 99 02/28/20 23:42 Course Orders Ordered: Discontinued Medications Ketorolac Tromethamine (Toradol) 60 mg IM NOW ONE Stop: 02/29/20 00:40 Last Admin: 02/29/20 00:51 Dose: 60 mg Documented by: [email or web address] Vital Signs Vital signs: Vital Signs - 8 hr 02/28/20 23:42 Temperature 98.6 F Pulse Rate 92 H Respiratory Rate 18 Blood Pressure 133/79 Pulse Oximetry 99 MDM - Extremity (Nontraumatic) Imaging Data US - DVT: Radiologist's Impression: Chart Viewer Diagnostics DATE TYPE STATUS REF RANGE/AUTHOR Hx 02/28/20 23:47 Fadi Sharp 07/04/19 15:15 Michelle Rangel 05/28/19 15:59 Faraz Amin 03/03/19 19:58 Margarito Branham 03/01/19 15:57 Margarito Branham Desiree E 34, 1985 [facility] ER, Main ED 149.685kg Extremity Problem,Nontraumatic Search Chart No Data to Display NF - Not included in interaction checking RASH headache ONSET 09/05/12 03/06/14 03/11/15 01/18/17 06/09/17 02/28/20 23:42 Charisse Norwood 34 F 1985 [place] [address] Ultrasound Report Signed Patient: Charisse Norwood EMR#: [id number] : 1985Acct:[id number] Age/Sex: 34 / FDate of Service: 02/28/20 Loc: ED Accession Number: [id number] Procedure: US periph venous low extrem lt Ordering Provider: Marquise Chavez D.O. PROCEDURE: US PERIPH VENOUS LOW EXTREM LT INDICATIONS: CALF PAIN, EDEMA TECHNIQUE: Real-time imaging, as well as color and pulse Doppler interrogation, were performed of the lower extremity deep veins from the inguinal ligament to the popliteal fossa. COMPARISON: None. FINDINGS: The common femoral, femoral and popliteal veins are normally compressible, and free of intraluminal thrombus. Color and pulse Doppler demonstrate normal phasic intraluminal flow. There is normal augmentation response to distal compression maneuver. IMPRESSION: No evidence of left lower extremity deep vein thrombosis. Note: The preliminary report provided by [facility] is concordant with the final report. Dictated by: Fadi Sharp M.D. on 02/29/2020 at 7:44 Approved by: Fadi Sharp M.D. on 02/29/2020 at 7:45 [facility] Narrative Medical decision making narrative: Multiple etiologies for patient's symptoms considered including: [Cellulitis versus DVT versus musculoskeletal injury versus other] Patient's symptoms improved or duration of stay with above-stated therapies. Findings and discharge diagnosis discussed with patient/family followed by verbalization of understanding Return precautions discussed with patient/family whom verbalize understanding. Discharge Plan Departure Patient Disposition: Home Clinical Impression: Pain of left calf Discharge Date/Time: 02/29/20 01:08 Instructions: DI for Leg Pain Activity Restrictions/Additional Instructions: *You have been diagnosed with [ left calf pain, no DVT ] *What to do: *Take medications as directed *Follow up with your primary care provider in 2-3 days, call for an appointment. Let them know you were seen in the Emergency Department and that we ask that you be seen in follow up *Return to ER if you should have any new, worsening or concerning symptoms Prescriptions: No Action ibuprofen 800 MG tablet 800 mg PO PRN PRNQty: 90 RF: 0 Progesterone compound topical RF: 0 Bi-est compound topical RF: 0 Testosterone compound topical RF: 0 desogestrel-ethinyl estradiol [Isibloom] 0.15-0.03 mg tablet 1 tab PO DAILY RF: 0 labetalol 100 mg tablet See Rx Instructions .ROUTE .COMPLEX Qty: 15 RF: 0 labetalol 100 mg tablet 100 mg PO BEDTIME Qty: 90 RF: 1 tramadol 50 mg tablet 50 mg PO DAILY PRN (Reason: pain) RF: 0 amlodipine 5 mg tablet 5 mg PO DAILY RF: 0 Referrals: Curtis Carrera, DO [Primary Care Provider] -
[2020-02-29] MEDS: KETOROLAC 60 MG/2 ML VIAL IM (00:51)
== END 2020-02-29 01:08 | disposition home or self-care (01) ==
PROVIDERS: Emergency Provider Emergency Medicine; PCP Family Medicine
DX: M79.662 Pain in left lower leg (principal)
CPT/HCPCS: 93971; 96372; 99283; J1885

== ENCOUNTER → 2020-03-17 11:22 | Outpatient (CLI) | payer OTHER, MEDICAID, SELFPAY ==
[2019-04-23 09:26] VITALS: BMI 58.6
--- NOTE | 2020-03-17 11:23 | DI.US.S_ITS ---
PROCEDURE: US PELVIC COMPLETE INDICATIONS: POLYCYSTIC OVARIAN SYNDROME TECHNIQUE: Real-time scanning was performed of the pelvic organs, with image documentation. Additional endovaginal scanning was necessary due to incomplete visualization of the adnexal and endometrial structures by transabdominal scanning. COMPARISON: [facility], US, PELVIC COMPLETE, 03/25/2013, 16:48. FINDINGS: Transabdominal scanning: Limited scanning through the kidneys shows no hydronephrosis. No pathologic free abdominal or pelvic fluid. No fibroids found. Endovaginal scanning: Uterus: Uterus is normal in size at 4.9 x 6.4 x 10.0 cm. The endometrium measures 10.0 mm in combined thickness. No fibroids identified. Ovaries: Normal ovaries are not seen bilaterally. Quality of visualization was somewhat limited by patient body habitus. The right adnexa there is a large solid-appearing mass measuring up to 15.1 x 10.3 x 14.3 cm. A cystic component measures up to 6.9 x 6.5 x 6.9 cm.. IMPRESSION: Large body habitus, quality of visualization is limited by this factor and overlying bowel gas. The uterus appears normal as does the endometrial lining but there is a large cystic and solid masslike structure at the right adnexa. The solid component measures up to 15.1 cm and the cystic component measures up to almost 7.0 cm. Followup by dedicated CT scanning is recommended and gynecological surgical consultation also likely is warranted. Nonvisualization of the left ovary, due to the large body habitus and overlying bowel gas. Dictated by: Faraz Amin M.D. on 03/17/2020 at 13:18 Approved by: Faraz Amin M.D. on 03/17/2020 at 13:24
== END ==
PROVIDERS: PCP Family Medicine; Referring Provider Obstetrics & Gynecology; Visit Provider Obstetrics & Gynecology
DX: E28.2 Polycystic ovarian syndrome (principal); R19.09 Other intra-abdominal and pelvic swelling, mass and lump
CPT/HCPCS: 76830; 76856

== ENCOUNTER → 2020-03-18 08:43 | Outpatient (CLI) | payer OTHER, MEDICAID, SELFPAY ==
[2019-04-23 09:26] VITALS: BMI 58.6
[2020-03-18 10:01] LABS: Cancer Antigen 125 19.1 U/mL (0-35); Carcinoembryonic Antigen 0.6 ng/mL (0.1-3.0)
[2020-03-19 15:08] LABS: Cancer (Carbohydrate) Ag 19-9 5 U/mL (0-35)
[2020-03-22 18:36] LABS: Estrogen 475 pg/mL (.)
[2020-03-23 12:34] LABS: Anti Mullerian Hormone 373 ng/mL (.)
[2020-03-26 13:36] LABS: Inhibin B 13017.5 pg/mL (.)
== END ==
PROVIDERS: PCP Family Medicine; Referring Provider Obstetrics & Gynecology; Visit Provider Obstetrics & Gynecology
DX: N94.89 Other specified conditions associated with female genital organs and menstrual cycle (principal)
CPT/HCPCS: 36415; 82378; 82397; 82672; 83520; 86301; 86304; 86305; 86336

== ENCOUNTER → 2020-03-20 14:29 | Outpatient (CLI) | payer OTHER, MEDICAID, SELFPAY ==
[2019-04-23 09:26] VITALS: BMI 58.6
--- NOTE | 2020-03-20 14:31 | DI.CT.S_ITS ---
PROCEDURE: CT ABDOMEN PELVIS W CON INDICATIONS: Eval R adnexal Mass TECHNIQUE: After the administration of intravenous contrast, 5 mm thick sections acquired from the diaphragm to the symphysis. 5 mm coronal and sagittal reformats were acquired. For radiation dose reduction, the following was used: automated exposure control, adjustment of mA and/or kV according to patient size. COMPARISON: [facility], US, US PELVIC COMPLETE, 03/17/2020, 11:40. [facility], CT, CT ANGIO CHEST PE PROTOCOL, 03/03/2019, 20:08. FINDINGS: Image quality: Excellent. ABDOMEN: Lung bases: Left basilar scar or atelectasis. Heart size is normal. Solid organs: Liver is normal in size and enhancement. Gallbladder is normal. Biliary system is non dilated. Pancreas enhances normally. Spleen is normal in size and enhancement. No adrenal nodules. Kidneys demonstrate normal size and enhancement, without hydronephrosis. Peritoneum and bowel: Bowel loops demonstrate normal wall thickness and caliber. No free fluid or air. Nodes and vessels: No retroperitoneal or mesenteric adenopathy by size criteria. Aorta and inferior vena cava are normal in size. Miscellaneous: No ventral hernias. PELVIS: Genitourinary: Bladder wall thickness is normal. Uterus is normal in size. Suspect a 3.7 x 3.8 cm submucosal fibroid in the left uterine wall. There is a large, solid, heterogeneous mass at midline superior to the uterus measuring 12.7 cm AP, 15.7 cm transverse and and 10.9 cm cephalocaudal. There is a 2.5 cm soft tissue, which may be the left ovary. A 6.3 x 5.6 cm cyst is seen in the right adnexa. Miscellaneous: No inguinal hernias or adenopathy. Bones: No suspicious bony lesions. No vertebral body compression fractures. IMPRESSION: 1. Large solid heterogeneous mass measuring 12.7 x 15.7 x 2.9 cm superior to the uterus at midline. Because of its midline location, it is difficult to be certain if this mass arises from the uterus or the ovaries. It appears to be more closely associated with the left broad ligament, possibly arising from the left ovary. Differential diagnoses an ovarian neoplasm versus a large exophytic uterine leiomyoma (fibroid). A 3.7 x 3.8 cm fibroid is suspected. If clinical indicated, MRI may be helpful for further evaluation. 2. There is a 5.6 x 5.6 cm cyst in the right adnexa, likely arising from the right ovary. Dictated by: Vicente Rocha M.D. on 03/20/2020 at 15:38 Approved by: Vicente Rocha M.D. on 03/20/2020 at 15:56
== END ==
PROVIDERS: PCP Family Medicine; Referring Provider Obstetrics & Gynecology; Visit Provider Obstetrics & Gynecology
DX: N94.89 Other specified conditions associated with female genital organs and menstrual cycle (principal); E34.9 Endocrine disorder, unspecified
CPT/HCPCS: 74177; Q9967

== ENCOUNTER → 2020-04-06 10:50 | Outpatient (CLI) | payer OTHER, MEDICAID, SELFPAY ==
[2019-04-23 09:26] VITALS: BMI 58.6
[2020-04-06 11:24] LABS: Bacteria Urine None Seen
[2020-04-06 12:23] LABS: Appearance Urine UA CLEAR; Bilirubin Urine UA NEGATIVE (NEGATIVE); Color Urine UA YELLOW; Glucose Urine UA NEGATIVE (Negative); Ketones Urine UA NEGATIVE (NEGATIVE); Leukocyte Esterase Urine UA TRACE (NEGATIVE); Nitrite Urine UA NEGATIVE (Negative); Occult Blood Urine UA 3+ (Negative); Protein Urine UA TRACE (Negative); Specific Gravity Urine UA 1.025 (1.000-1.035); Urobilinogen Urine UA 0.2 E.U./dL (0.2)
[2020-04-06 12:33] LABS: pH Urine UA 5.5 (4.5-8.0)
[2020-04-06 12:35] LABS: Culture Indicated Urine Cult Not Indicated; RBC Urine 10-30/HPF (0-5/HPF); Squamous Epithelial Cell Urine 5-10 /HPF (0-5/HPF); WBC Urine 5-10/HPF (0-5/HPF)
== END ==
PROVIDERS: PCP Family Medicine; Referring Provider Family Medicine; Visit Provider Obstetrics & Gynecology
DX: R30.0 Dysuria (principal); I10 Essential (primary) hypertension
CPT/HCPCS: 81001; 93005

== ENCOUNTER → 2020-04-10 13:24 | Outpatient (CLI) | payer OTHER, MEDICAID, SELFPAY ==
[2019-04-23 09:26] VITALS: BMI 58.6
[2020-04-11 07:08] LABS: Candida species Negative (Negative); Gardnerella vaginalis Negative (Negative); Trichomoas vaginalis Negative (Negative)
== END ==
PROVIDERS: PCP Family Medicine; Visit Provider Obstetrics & Gynecology
DX: N90.9 Noninflammatory disorder of vulva and perineum, unspecified (principal)
CPT/HCPCS: 87070; 87077; 87147; 87205; 87480; 87510; 87660

== ENCOUNTER → 2020-04-15 12:06 | Outpatient (CLI) | payer OTHER, MEDICAID, SELFPAY ==
[2019-04-23 09:26] VITALS: BMI 58.6
== END ==
PROVIDERS: PCP Family Medicine; Referring Provider Obstetrics & Gynecology; Visit Provider Obstetrics & Gynecology
DX: N94.9 Unspecified condition associated with female genital organs and menstrual cycle (principal); R39.9 Unspecified symptoms and signs involving the genitourinary system
CPT/HCPCS: 87086

== ENCOUNTER → 2020-06-04 14:26 | Outpatient (CLI) | payer OTHER, MEDICAID, SELFPAY ==
[2019-04-23 09:26] VITALS: BMI 58.6
[2020-06-09 13:09] LABS: Inhibin B <7.0 pg/mL (.)
== END ==
PROVIDERS: PCP Family Medicine; Referring Provider Obstetrics & Gynecology; Visit Provider Obstetrics & Gynecology
DX: D39.12 Neoplasm of uncertain behavior of left ovary (principal)
CPT/HCPCS: 36415; 83520

== ENCOUNTER → 2020-07-24 09:19 | Outpatient (CLI) | payer OTHER, MEDICAID, SELFPAY ==
[2019-04-23 09:26] VITALS: BMI 58.6
[2020-07-24 10:24] LABS: Hemoglobin A1C% w Est Avg Glu 5.5 % (4.0-6.0)
[2020-07-24 10:38] LABS: Follicle Stimulating Hormone 5.09 mIU/mL
[2020-07-24 10:54] LABS: Estradiol, Total 67.3 pg/mL
[2020-07-24 11:06] LABS: Alanine Aminotransferase 23 IU/L (<35); Albumin 4.4 g/dL (3.5-5.0); Albumin Globulin Ratio 1.3 (1.0-2.8); Alkaline Phosphatase 86 U/L (38-126); Aspartate Aminotransferase 23 IU/L (14-36); BUN Creatinine Ratio 33.3 (6-22); Bilirubin Total 0.5 mg/dL (0.2-1.3); Blood Urea Nitrogen 18 mg/dL (7-17); Calcium 9.6 mg/dL (8.4-10.2); Carbon Dioxide 27 mmol/L (22-32); Chloride 106 mmol/L (98-107); Cholesterol 193 mg/dL (140-199); Estimated Glomerular Filt Rate > 60.0 mL/min (>60); Globulin 3.4 g/dL (1.7-4.1); Glucose 107 mg/dL (70-100); HDL Cholesterol 32 mg/dL (40-60); HEMOLYSIS < 15 (0-50); LDL Cholesterol Calculated 103 mg/dL (<100); Potassium 4.1 mmol/L (3.4-5.1); Sodium 140 mmol/L (137-145); Total Protein 7.8 g/dL (6.3-8.2); Triglycerides 290 mg/dL (35-150)
[2020-07-24 11:22] LABS: Vitamin D 25 Hydroxy (D3) 35.6 ng/mL (30.0-100.0)
[2020-07-24 11:26] LABS: Prolactin 9.5 ng/mL (3.0-18.6)
[2020-07-24 11:33] LABS: Rubella Antibody IgG 25.8 IU/mL (>15)
[2020-07-24 11:36] LABS: Thyroid Stimulating Hormone 0.989 uIU/mL (0.47-4.68)
[2020-07-25 06:36] LABS: Varicella IgG Antibody 867 index (Immune >165)
[2020-07-25 07:27] LABS: Insulin Level Total 36.9 uIU/mL (2.6-24.9)
[2020-07-28 08:58] LABS: Percent Free Testosterone 2.26 % (0.50-2.80); Testosterone Total 75.2 ng/dL (10.0-55.0)
[2020-07-29 15:43] LABS: Anti Mullerian Hormone 0.262 ng/mL (.)
== END ==
PROVIDERS: PCP Family Medicine; Referring Provider Family Medicine; Visit Provider Family Medicine
DX: E28.2 Polycystic ovarian syndrome (principal); E66.01 Morbid (severe) obesity due to excess calories; E78.5 Hyperlipidemia, unspecified; I10 Essential (primary) hypertension; R76.0 Raised antibody titer; Z11.59 Encounter for screening for other viral diseases; Z13.29 Encounter for screening for other suspected endocrine disorder; Z31.41 Encounter for fertility testing; Z68.43 Body mass index [BMI] 50.0-59.9, adult
CPT/HCPCS: 36415; 80053; 80061; 82306; 82397; 82670; 83001; 83036; 83525; 84146; 84402; 84403; 84443; 86762; 86787

== ENCOUNTER → 2020-08-13 11:44 | Outpatient (CLI) | payer OTHER, MEDICAID, SELFPAY ==
[2019-04-23 09:26] VITALS: BMI 58.6
[2020-08-18 13:58] LABS: Inhibin B 64.8 pg/mL (.)
== END ==
PROVIDERS: PCP Family Medicine; Referring Provider Obstetrics & Gynecology; Visit Provider Obstetrics & Gynecology
DX: D39.12 Neoplasm of uncertain behavior of left ovary (principal)
CPT/HCPCS: 36415; 83520

== ENCOUNTER → 2020-09-18 09:29 | Outpatient (CLI) | payer OTHER, MEDICAID, SELFPAY ==
[2019-04-23 09:26] VITALS: BMI 58.6
--- NOTE | 2020-09-18 | DI.US.S_ITS ---
ULTRASOUND OF LEFT AXILLA: 09/18/2020 CLINICAL: Left axillary pain. [facility] of the left axilla was performed on the area of interest. No discrete cystic or solid mass lesion identified in the area of pain. IMPRESSION: NEGATIVE There is no sonographic evidence of malignancy. There is no abnormality seen in the left axilla to correspond with the pain in the left axilla, however, clinical followup is recommended. A 1 year screening mammogram is recommended. This exam was interpreted at Station ID: [id number]. Electronically Signed By: Ej Hogan M.D. ddp/:09/18/2020 11:47:43 letter sent: Clinical Evaluation Ultrasound BI-RADS: 1 Negative
--- NOTE | 2020-09-18 09:31 | DI.MG.S_ITS ---
BILATERAL DIGITAL DIAGNOSTIC MAMMOGRAM 3D/2D: 09/18/2020 CLINICAL: Baseline exam. Left breast pain. No prior exams were available for comparison. The tissue of both breasts is predominantly fatty. No significant masses, calcifications, or other findings are seen in either breast. There is a small lymph node in the right breast. IMPRESSION: INCOMPLETE: NEEDS ADDITIONAL IMAGING EVALUATION There is no abnormality seen in the left axilla to correspond with the pain in the left axilla, however, ultrasound is recommended. Ultrasound will be performed immediately following the current exam. This exam was interpreted at Station ID: [id number]. NOTE: For mammograms, a report in lay terms will be sent to the patient. Approximately 15% of breast malignancies will not be visualized mammographically. In the management of a palpable breast mass, a negative mammogram must not discourage biopsy of a clinically suspicious lesion. Electronically Signed By: Ej Hogan M.D. ddp/:09/18/2020 10:21:32 ACR BI-RADS Category 0: Incomplete [id number]
== END ==
PROVIDERS: PCP Family Medicine; Referring Provider Registered Nurse; Visit Provider Registered Nurse
DX: R92.8 Other abnormal and inconclusive findings on diagnostic imaging of breast (principal); N64.4 Mastodynia
CPT/HCPCS: 76882; 77066; G0279

== ENCOUNTER → 2020-11-06 07:02 | Outpatient (CLI) | payer OTHER, MEDICAID, SELFPAY ==
[2019-04-23 09:26] VITALS: BMI 58.6
--- NOTE | 2020-11-06 08:06 | DI.CT.S_ITS ---
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 5 mm thick coronal and sagittal reformats were performed. For radiation dose reduction, the following was used: automated exposure control, adjustment of mA and/or kV according to patient size. COMPARISON: [facility], CT, CT ABDOMEN PELVIS W CON, 03/20/2020, 15:17. FINDINGS: Image quality: Excellent. ABDOMEN: Lung bases: Small subpleural nodules at the right lung base are nonspecific, though unchanged. Stable small patchy of left lower lobe atelectasis.. Heart size is normal. Solid organs: Liver is mildly enlarged and hypodense. Gallbladder demonstrates normal wall thickness. Biliary system is non-dilated. Pancreas enhances normally. Spleen is elongated measuring 17.1 cm in craniocaudal dimension No adrenal nodules. Kidneys are normal in size and enhancement, without hydronephrosis. Peritoneum and bowel: Stomach, small bowel, and colon loops are normal in caliber and wall thickness. No free fluid or air. Nodes and vessels: No retroperitoneal or mesenteric adenopathy. Aorta and inferior vena cava are normal in caliber. Miscellaneous: In the right lower quadrant along the anterolateral abdominal wall, there is subcutaneous inflammation adjacent to a small, narrow necked fat containing hernia, likely a port site hernia. PELVIS: Genitourinary: Bladder wall thickness is normal. The right ovary measures 8.9 cm in length and contains two dominant cysts. There has been interval resection of the left ovarian mass. The uterus appears normal. Miscellaneous: No inguinal hernias or adenopathy. No suspicious pelvic mass. Bones: No suspicious bony lesions. No vertebral body compression fractures. IMPRESSION: 1. Resection of solid left ovarian mass. 2. Prominent right ovary with two dominant follicles, changed in morphology compared to the prior CT scan. 3. No suspicious pelvic or retroperitoneal adenopathy. 4. Small right lower quadrant fat containing abdominal wall hernia. 5. Stable hepatosplenomegaly and hepatic steatosis. 6. Small, stable nonspecific right lower lobe lung nodules. Dictated by: Shi Elizabeth M.D. on 11/06/2020 at 9:32 Approved by: Shi Elizabeth M.D. on 11/06/2020 at 10:30
[2020-11-06 08:41] LABS: Estradiol, Total 47.8 pg/mL
[2020-11-10 11:36] LABS: Inhibin B 18.2 pg/mL (.)
[2020-11-12 10:09] LABS: Anti Mullerian Hormone 0.293 ng/mL (.)
== END ==
PROVIDERS: PCP Family Medicine; Referring Provider Obstetrics & Gynecology; Visit Provider Obstetrics & Gynecology
DX: D39.12 Neoplasm of uncertain behavior of left ovary (principal); K43.9 Ventral hernia without obstruction or gangrene; R16.2 Hepatomegaly with splenomegaly, not elsewhere classified; K76.0 Fatty (change of) liver, not elsewhere classified; R91.8 Other nonspecific abnormal finding of lung field
CPT/HCPCS: 36415; 74177; 82397; 82670; 83520; Q9967

== ENCOUNTER → 2021-01-06 12:08 | Outpatient (CLI) | payer OTHER, MEDICAID, SELFPAY ==
[2019-04-23 09:26] VITALS: BMI 58.6
[2021-01-06 16:28] LABS: Progesterone, Total 4.96 ng/mL
== END ==
PROVIDERS: PCP Family Medicine; Referring Provider Specialist; Visit Provider Specialist
DX: Z31.41 Encounter for fertility testing (principal)
CPT/HCPCS: 36415; 84144

== ENCOUNTER → 2021-02-02 08:53 | Outpatient (CLI) | payer OTHER, MEDICAID, SELFPAY ==
[2019-04-23 09:26] VITALS: BMI 58.6
[2021-02-04 15:22] LABS: Inhibin B 17.8 pg/mL (.)
== END ==
PROVIDERS: PCP Family Medicine; Referring Provider Obstetrics & Gynecology; Visit Provider Obstetrics & Gynecology
DX: D39.12 Neoplasm of uncertain behavior of left ovary (principal)
CPT/HCPCS: 36415; 83520

== ENCOUNTER → 2021-02-15 11:01 | Outpatient (CLI) | payer OTHER, MEDICAID, SELFPAY ==
[2019-04-23 09:26] VITALS: BMI 58.6
[2021-02-15 12:52] LABS: HCG Quantitative /Beta subunit 167.7 mIU/mL
== END ==
PROVIDERS: PCP Family Medicine; Referring Provider Obstetrics & Gynecology; Visit Provider Obstetrics & Gynecology
DX: N91.2 Amenorrhea, unspecified (principal)
CPT/HCPCS: 36415; 84702

== ENCOUNTER → 2021-02-22 07:47 | Outpatient (CLI) | payer OTHER, MEDICAID, SELFPAY ==
[2019-04-23 09:26] VITALS: BMI 58.6
[2021-02-22 08:52] LABS: HCG Quantitative /Beta subunit 2793.8 mIU/mL
[2021-02-22 09:49] LABS: Free T4, Direct Thyroxine 0.99 ng/dL (0.78-2.19)
[2021-02-22 10:03] LABS: Thyroid Stimulating Hormone 1.95 uIU/mL (0.47-4.68)
== END ==
PROVIDERS: PCP Family Medicine; Referring Provider Obstetrics & Gynecology; Visit Provider Obstetrics & Gynecology
DX: E28.2 Polycystic ovarian syndrome (principal); E66.01 Morbid (severe) obesity due to excess calories; Z31.69 Encounter for other general counseling and advice on procreation; N91.2 Amenorrhea, unspecified
CPT/HCPCS: 36415; 84439; 84443; 84702

== ENCOUNTER 2021-03-05 10:51 | Emergency (ER) | payer OTHER, MEDICAID, SELFPAY ==
[2019-04-23 09:26] VITALS: BMI 58.6
[2021-03-05 10:55] VITALS: BP 169/75; PULSE 94; RESP 16; TEMP 36.6; O2SAT 96; BMI 56.6
--- NOTE | 2021-03-05 15:40 | ED.HA ---
HPI - Headache General Chief Complaint: Headache Stated Complaint: pain on right side of head, sent by pcp Time Seen by Provider: 03/05/21 15:40 Source: patient Mode of arrival: Ambulatory Limitations: no limitations History of Present Illness HPI Narrative: This a 35-year-old female who states she has had a headache on the right side of her head for the past week. Patient states she had her COVID vaccination. She did night developed fevers, chills and headache in that area that night. She states the headache has been present intermittently and has even resolved at times. She states it has come back. She states it is a discomfort but not severe. She took Tylenol initially but has not been taking anything regularly because it is not that painful. Patient is 7 weeks . She also has a history of hypertension and she states they just increased her blood pressure medication because she has noted her hypertension has not been as well controlled. She denies any fevers. She denies any vision changes. She denies any swelling. She denies any numbness, tingling or weakness. No difficulty with movement. No other nausea or vomiting. No abdominal pain. No chest pain or shortness of breath. No GI or urinary symptoms. Patient does state that she had a sunburn recently on her scalp and that she has an itchy scalp but has not appreciated any new skin changes. Related Data Home Medications Medication Instructions Recorded Confirmed Progesterone compound TOPICAL 02/26/20 02/25/21 Previous Rx's Medication Instructions Recorded labetalol 100 mg tablet 100 mg PO BID #180 tab 02/25/21 progesterone micronized 100 mg 200 mg PO QPM #30 cap 03/01/21 capsule Allergies Allergy/AdvReac Type Severity Reaction Status Date / Time adhesive [ADHESIVE] AdvReac Unknown RASH Verified 03/05/21 10:55 hydrocodone [HYDROCODONE] AdvReac Unknown headache Verified 03/05/21 10:55 Review of Systems Review of Systems ROS Unobtainable: All systems reviewed & are unremarkable except as noted in HPI and below Patient History Medical History Achilles tendinitis Anxiety Chronic back pain Costochondritis, acute DDD (degenerative disc disease), lumbar Depression Fatigue 0 Hypertension Hypoventilation associated with obesity syndrome Morbid obesity with BMI of 50.0-59.9, adult Nocturnal hypoxemia PCOS (polycystic ovarian syndrome) Pneumonia Snoring Surgical History History of tonsillectomy Family History Grandmother Coronary artery disease Mother Coronary artery disease Lung cancer Grandfather Coronary artery disease Unknown Hyperlipidemia Hypertension Coronary artery disease Depression Alcoholism Family/Other Hydrocephalus Social History household members: spouse Smoking Status: Former smoker alcohol intake: never substance use type: does not use Smoking Status: Former smoker alcohol intake frequency: holidays/special occasions only Substance Use Type: does not use Exam Narrative Exam Narrative: GEN: BMI 56, well appearing female, alert and oriented x 3, patient appears to be in mild distress. HEENT: Atraumatic, pupils are equal round reactive to light, extraocular movements are intact, nares are clear, TMs are clear with no fluid, there is no conjunctival pallor. Throat is clear without any exudates, erythema, tonsillar enlargement or uvular deviation, patient has slight erythema of the scalp consistent with sunburn. There is 1 excoriated lesion but no other lesions, vesicles or skin changes noted. HEART: Regular rate and rhythm without murmur, clicks, rubs. No edema bilateral lower extremities. LUNGS:Lungs clear to auscultation, no wheezes, rales, crackles, chest moves symmetrically ABD:bowel sounds normal, soft, non-tender, no guarding, rebound, rigidity, no masses noted, no hepatosplenomegaly MSCL: Non-tender, no muscle atrophy, muscles strength 5/5 upper and lower extremities, full range of motion, normal gait NEURO:CN 2-12 intact, sensation normal, normal gait. Initial Vital Signs Initial Vital Signs: Vital Signs Temperature 97.8 F 03/05/21 10:55 Pulse Rate 94 H 03/05/21 10:55 Respiratory Rate 16 03/05/21 10:55 Blood Pressure 169/75 H 03/05/21 10:55 Pulse Oximetry 96 03/05/21 10:55 Course Orders Ordered: Discontinued Medications Labetalol HCl (Labetalol 100 Mg Tablet) 200 mg PO NOW ONE Stop: 03/05/21 16:05 Last Admin: 03/05/21 16:10 Dose: Not Given Documented by: SHANTELL Vital Signs Vital signs: Vital Signs - 8 hr 03/05/21 16:08 Pulse Rate 76 Respiratory Rate 16 Blood Pressure 166/85 H Pulse Oximetry 99 MDM - Headache MDM Narrative Medical decision making narrative: Discussed with patient I am concerned about her hypertension but my suspicion for acute intracranial bleed, infection, blood clot or similar changes is low. Patient was offered to give a year additional dose of labetalol here in the department but she defers. We did discuss that she needs to monitor her blood pressure closely and if it is not improving on consistently staying about 130 she needs to be seen shortly. We did discuss that preeclampsia is on the differential although she is quite early in her . Patient is not currently having any other symptoms which are suspicious. Discharge Plan Departure Patient Disposition: Home Clinical Impression: Headache, Instructions: DI for Headache Activity Restrictions/Additional Instructions: Follow-up with your physician for recheck this week. It is noted your blood pressure is elevated. They may need to readjust your medication. I would record your blood pressure regularly at home. If it is consistently above 130 they will need to readjust her medications. You may take Tylenol up to a 1000 mg every 8 hours as needed for pain. Please return for fevers greater 100.4 F, new rash or skin changes on the scalp face, severe headaches, passing out, persistent vomiting, new numbness, weakness or tingling, swelling of her face, vision changes or other new or concerning symptoms. Prescriptions: No Action progesterone micronized 100 mg capsule 200 mg PO QPM Qty: 30 RF: 6 Progesterone compound topical RF: 0 labetalol 100 mg tablet 100 mg PO BID Qty: 180 RF: 0 Referrals: Curtis Carrera DO [Primary Care Provider] -
--- NOTE | 2021-03-05 15:59 | PC.NURSE ---
pt states headache x 1 week. started morning after having moderna vaccine. states woke up with stiff neck unrelieved by tylenol. pt 7 weeks .
[2021-03-05 16:08] VITALS: BP 166/85; PULSE 76; RESP 16; O2SAT 99
== END 2021-03-05 16:09 | disposition home or self-care (01) ==
PROVIDERS: Emergency Provider Emergency Medicine; PCP Family Medicine
DX: O26.891 Other specified pregnancy related conditions, first trimester (principal); R51.9 Headache, unspecified; R50.9 Fever, unspecified; I10 Essential (primary) hypertension; Z3A.01 Less than 8 weeks gestation of pregnancy
CPT/HCPCS: 99281

== ENCOUNTER → 2021-03-16 16:21 | Outpatient (CLI) | payer OTHER, MEDICAID, SELFPAY ==
[2019-04-23 09:26] VITALS: BMI 58.6
[2021-03-16 17:00] LABS: Add Manual Diff / Slide Review NO; Basophils Absolute Auto 100 /uL (0-100); Basophils Percent Auto 1.2 % (0-2); Eosinophils Absolute Auto 200 /uL (0-450); Eosinophils Percent Auto 1.5 % (2-4); Hematocrit 37.6 % (36-46); Hemoglobin 12.4 g/dL (12.0-16.0); Lymphocytes Absolute Auto 1900 /uL (1100-4500); Lymphocytes Percent Auto 16.4 % (25-40); Mean Corpuscular Volume 78.8 fL (80-100); Monocytes Absolute Auto 1000 /uL (0-900); Monocytes Percent Auto 8.4 % (3-14); Neutrophils Absolute Auto 8500 /uL (1500-7000); Neutrophils Percent Auto 72.5 % (50-75); Platelet Count 218 X10^3/uL (150-400); Red Blood Cell Count 4.77 X10^6/uL (4.0-5.2); Red Cell Distribution Width 17.1 % (11.6-14.8); White Blood Cell Count 11.7 X10^3/uL (4.5-11.0)
[2021-03-16 17:18] LABS: Alanine Aminotransferase 22 IU/L (<35); Albumin 4.2 g/dL (3.5-5.0); Albumin Globulin Ratio 1.4 (1.0-2.8); Alkaline Phosphatase 81 U/L (38-126); Aspartate Aminotransferase 21 IU/L (14-36); BUN Creatinine Ratio 28.6 (6-22); Bilirubin Total 0.4 mg/dL (0.2-1.3); Blood Urea Nitrogen 14 mg/dL (7-17); Carbon Dioxide 20 mmol/L (22-32); Chloride 105 mmol/L (98-107); Estimated Glomerular Filt Rate > 60.0 mL/min (>60); Globulin 3.1 g/dL (1.7-4.1); Glucose 96 mg/dL (70-100); HEMOLYSIS < 15 (0-50); Lactate Dehydrogenase 344 U/L (313-618); Potassium 3.9 mmol/L (3.4-5.1); Sodium 135 mmol/L (137-145); Total Protein 7.3 g/dL (6.3-8.2); Uric Acid 6.1 mg/dL (2.5-6.2)
[2021-03-16 17:20] LABS: Hemoglobin A1C% w Est Avg Glu 5.2 % (4.0-6.0)
[2021-03-16 18:07] LABS: Appearance Urine UA CLEAR; Bilirubin Urine UA NEGATIVE (NEGATIVE); Color Urine UA YELLOW; Glucose Urine UA NEGATIVE (Negative); Ketones Urine UA TRACE (NEGATIVE); Leukocyte Esterase Urine UA NEGATIVE (NEGATIVE); Nitrite Urine UA NEGATIVE (Negative); Occult Blood Urine UA 2+ (Negative); Protein Urine UA NEGATIVE (Negative); Urobilinogen Urine UA 0.2 E.U./dL (0.2)
[2021-03-16 19:38] LABS: Bacteria Urine None Seen; RBC Urine None Seen (0-5/HPF); WBC Urine None Seen (0-5/HPF)
[2021-03-16 19:39] LABS: Squamous Epithelial Cell Urine 1-5 /HPF (0-5/HPF)
[2021-03-17 07:46] LABS: RPR Screen Non Reactive (Non Reactive)
[2021-03-17 08:36] LABS: Varicella IgG Antibody 713 index (Immune >165)
[2021-03-18 17:02] LABS: Hepatitis B Surface Antigen NEGATIVE s/c (NEGATIVE); Rubella Antibody IgG 26.7 IU/mL (>15)
[2021-03-18 17:16] LABS: HIV 1 & 2 Ab/Ag 4th Gen Combo NEGATIVE (NEGATIVE); Hep C Virus Ab w/Reflex Quant NEGATIVE s/c (NEGATIVE)
== END ==
PROVIDERS: PCP Family Medicine; Referring Provider Obstetrics & Gynecology; Visit Provider Obstetrics & Gynecology
DX: Z34.90 Encounter for supervision of normal pregnancy, unspecified, unspecified trimester (principal)
CPT/HCPCS: 36415; 80053; 80055; 81003; 81015; 83036; 83615; 84550; 86787; 86803; 86850; 86900; 86901; 87086; 87389

== ENCOUNTER → 2021-03-20 08:33 | Outpatient (CLI) | payer OTHER, MEDICAID, SELFPAY ==
[2019-04-23 09:26] VITALS: BMI 58.6
[2021-03-20 10:17] LABS: GTT (PREG) 1 Hour PP 50gm Dose 214 mg/dL (76-139)
[2021-03-20 11:15] LABS: Collection Time Urine 24 Hours; Protein (Total) Urine Random 8 mg/dL (0-12); Total Protein 24 Hour Urine 88 mg/day (42-225); Total Volume Urine 1100 mL
== END ==
PROVIDERS: PCP Family Medicine; Referring Provider Obstetrics & Gynecology; Visit Provider Obstetrics & Gynecology
DX: Z34.90 Encounter for supervision of normal pregnancy, unspecified, unspecified trimester (principal)
CPT/HCPCS: 36415; 82950; 84156

== ENCOUNTER → 2021-03-25 07:58 | Outpatient (CLI) | payer OTHER, MEDICAID, SELFPAY ==
[2019-04-23 09:26] VITALS: BMI 58.6
--- NOTE | 2021-03-25 08:03 | DIET.PN ---
Dietary Progress Note Assessment: 35y F attending nutrition visit at 10w secondary to recent 1h GTT of 214, prepregnancy BMI 57, HTN, HLD, advanced maternal age, PCOS. Pt had previously been referred to RD but insurance did not cover visits as she was not . Pt lives c spouse in [place], has custody of three children aged 2, 6, 11yo (two others sent back to parents). Pt has hx of PCOS and recent granuloma cancer requiring removal of ovary in 2019. Pt tried unsuccessfully for 10y to get including visits c RDs and fertility doctors. Pt spontaneous now. Is having some nausea, especially when hungry Is feeling tired these days so watches cartoons with toddler, very sedentary Usual Day: wakes around 8am and snuggles with toddler has breakfast 10-11am B: eggs, toast, cheese, solorzano or sausage, 1 cup orange juice (sometimes small, sometime big) Has SF Ice drink sometime during the day toddler naps 12-1pm and takes nap with her has lunch afterwards L: sandwiches and some fresh veggies, frozen burritos, bagel dogs hangs out at home after lunch, not doing much because feeling fatigued D(5-6pm): family eats together- meat (chicken or steak) c steamed veggies Doesn't usually eat right before bed Pt taking vitamin daily Pt has tried ketogenic diet in the past for weight loss, was checking ketones and BG so has some familiarity with carb counting. Pt has subscription to yoga video series which she has not done in months. Pt often complains to kids when they want her to be active with them. Pt started checking her BG two days before this first consultation. FBG 90, 118, 114. Pt has concerns about her fingers hurting with checking BG. HT: 5'4 WT: 335# BMI: 57.4 Labs: FBG 90 FBG 118 H, A1c 5.2, 1h GTT 214 H, LDL 103 H, HDL 32 L, TG 290 H Motivation: Pt wants to be healthier and feels this is a blessing and opportunity to do so. 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 Nutrition Diagnosis: altered nutrition related laboratory values r/t endocrine dysfunction, physical inactivity, undesirable food choices aeb elevated FBG (114, 118), 1h GTT 214, pt sedentary with no planned, regular physical activity, BMI 57.4, hx PCOS. Interventions: 1. Discussed healthy diet in using [place] handout. Discussed meal timing, spacing, and portion size. Discussed no need for extra snacks during first trimester. 2. Educated pt on GDM and carbohydrate counting using [employer] Healthy Eating 1 booklet. Discussed carbs to be controlled, portion sizes, and preference for whole grains, vegetables, high fiber plant proteins, calcium-fortified almond milk as dairy milk alternative (pt not tolerating liquid dairy). 3. Educated pt on using glucometer. Pt tested her BG in office (FBG 114). Discussed alternating fingers, testing on side of finger pad, testing and logging FBG daily and 1h PP each meal. BG goals: FBG <95, 1h PP <140. Discussed high values and how to adjust intake/increase activity to modulate numbers. Discussed potential need for DM medication management. 4. Discussed role of physical activity in healthy weight, blood sugar control, and preparing body for birthing. Pt has considerable barriers to exercise. Focus today on motivational interviewing and reducing sedentary time: play with children, break up TV time, stroller around park, walk [place], yoga videos, swim. Discussed 10 minute walk after each meal for good BG support. 5. Spent considerable time on motivational interviewing to identify pts motivation for making lifestyle changes. Pt likely to be successful with carb consistent eating but will have more barriers for body movement. Diet Order: CCD2/3 depending on PP BG EER: 2,200kcal (15kcal/kg per obese 1st tri), 150g PRO (1g/kg ) Monitoring/Evaluations: telehealth f/u in 1 w to review BG log and problem solve exercise and lunch meals. Pt will test and log FBG daily and for the next 1 w do 1h PP testing after each meal. Pt current FBG levels elevated, close monitoring required regarding potential need for DM medication management.
== END ==
PROVIDERS: PCP Family Medicine; Referring Provider Obstetrics & Gynecology; Visit Provider Obstetrics & Gynecology
DX: O99.211 Obesity complicating pregnancy, first trimester (principal); O99.281 Endocrine, nutritional and metabolic diseases complicating pregnancy, first trimester; E28.2 Polycystic ovarian syndrome; E78.5 Hyperlipidemia, unspecified; Z3A.10 10 weeks gestation of pregnancy; Z71.3 Dietary counseling and surveillance
CPT/HCPCS: 36415; 83021; 97802

== ENCOUNTER → 2021-04-01 13:34 | Outpatient (CLI) | payer OTHER, MEDICAID, SELFPAY ==
[2019-04-23 09:26] VITALS: BMI 58.6
--- NOTE | 2021-04-01 13:35 | DIET.PN ---
Dietary Progress Note 35y F attending telehealth f/u for GDM. Pt has been checking FBG and 1hPP BG after every meal for the past week. States, checking BG is fine, just annoying but she has not missed a BG check. Pt has mindfully started including more vegetables at lunch. BG goals: FBG <95 1hPP <140 Pt has a spreadsheet with meals and BG readings she shared. Pts FBG averaging 94-123 mostly between 110-120. 1hPP after breakfast 125-165 with one outlier of 199 when she had 8oz OJ and pancake syrup Pt is consuming 8oz orange juice daily with breakfast. Pt will try reducing OJ to 4oz at most per day to see if this keeps her BG in range. 1hPP after lunch showing excellent control range 116-134. 1hPP after dinner show range 124-155 with half readings >140. EER: 2,200kcal (15kcal/kg per obese 1st tri), 150g PRO (1g/kg ) Nutrition Diagnosis: altered nutrition related laboratory values r/t endocrine dysfunction, physical inactivity, undesirable food choices aeb elevated FBG (114, 118), 1h GTT 214, pt sedentary with no planned, regular physical activity, BMI 57.4, hx PCOS. Interventions: 1. Discussed role of physical activity in insulin resistance and BG values. Pt will try to walk 10min after dinner each day to see if benefiting BG numbers. Pt will try to be more active throughout the day. 2. Pt will stop eating breakfast syrup and limit OJ to no more than 4oz daily. 3. Pt will continue checking FBG, 1hPP breakfast and dinner and will add bedtime BG to assess for BG levels before bed and how they compare to FBG in the morning. Pt may benefit from medication management to get FBG into better control. Pt has OB appt on Monday and will discuss with provider. Monitoring/Evaluations: RD f/u via telehealth in 1w to assess progress, problem solve barriers, and continued monitoring of BG.
== END ==
PROVIDERS: PCP Family Medicine; Referring Provider Family Medicine; Visit Provider Family Medicine
DX: O24.419 Gestational diabetes mellitus in pregnancy, unspecified control (principal); Z71.3 Dietary counseling and surveillance
CPT/HCPCS: 97803

== ENCOUNTER → 2021-04-05 10:19 | Outpatient (CLI) | payer OTHER, MEDICAID, SELFPAY ==
[2019-04-23 09:26] VITALS: BMI 58.6
[2021-04-21 12:51] LABS: MateriT21 Plus with ESS NEGATIVE
== END ==
PROVIDERS: PCP Family Medicine; Referring Provider Obstetrics & Gynecology; Visit Provider Obstetrics & Gynecology
DX: O09.529 Supervision of elderly multigravida, unspecified trimester (principal)
CPT/HCPCS: 36415; 81420

== ENCOUNTER → 2021-04-07 13:59 | Outpatient (CLI) | payer OTHER, MEDICAID, SELFPAY ==
[2019-04-23 09:26] VITALS: BMI 58.6
--- NOTE | 2021-04-07 14:28 | DIET.PN ---
Dietary Progress Note 35y F attending 2w telehealth f/u for GDM. Pt had OB appt on Monday provider started 500mg Metformin (extended release) HS to help manage FBG which have been 110-120. Pts 1h PP BGs generally <140, did have two 180s this week after eating raisin canadian muffin with pb+J. Pt finding it interesting to learn what she can and cannot tolerate. Pt very open and receptive to nutrition counseling and discussion. Pt has not yet started increasing physical activity. Discussed barriers: fatigue, time, starting new habit. Idea generated c pt ways to overcome these barriers. Pt is going to try to get outside and go on walk with her 3yo Caryl in the late morning. Pt will push her shopping cart around the whole grocery store to increase steps. telehealth f/u in 2w to assess progress and problem solve barriers.
== END ==
PROVIDERS: PCP Family Medicine; Referring Provider Family Medicine; Visit Provider Family Medicine
DX: O24.415 Gestational diabetes mellitus in pregnancy, controlled by oral hypoglycemic drugs (principal); Z3A.11 11 weeks gestation of pregnancy
CPT/HCPCS: 97803

== ENCOUNTER → 2021-04-21 14:00 | Outpatient (CLI) | payer OTHER, MEDICAID, SELFPAY ==
[2019-04-23 09:26] VITALS: BMI 58.6
--- NOTE | 2021-04-21 14:05 | DIET.PN ---
Dietary Progress Note 35y F attending telehealth f/u for GDM Pt has been taking her extended release Metformin 500mg without much improvement in BG values. Pt was encouraged to take 500mg bid by OB which pt resisted, but pt willing to now take bid and will start tomorrow. Pts FBG remain ~110 and PP are 20% of time over 140 with one >200. Pt no longer drinking orange juice because it spikes her BG and seems to have good luck c 2 eggs on thin slice toast for breakfast. Pt remains resistant to exercise. She wants to be more active but easily talks herself out of it. Spent time counselling pt on behavior change strategies. Pt has yoga video, walks around [place], and balloon game she can participate in. Reviewed pts BG log and diet log, recc pt stick to 30g CHO at breakfast and dinner and 45g max at lunch. Pt requests meal planning resources. Pt received [email or web address] 3 day GDM meal plan. f/u in 2w to review BG logs and problem solve barriers.
== END ==
PROVIDERS: PCP Family Medicine; Referring Provider Family Medicine; Visit Provider Family Medicine
DX: O24.415 Gestational diabetes mellitus in pregnancy, controlled by oral hypoglycemic drugs (principal); Z71.3 Dietary counseling and surveillance
CPT/HCPCS: 97803

== ENCOUNTER → 2021-04-28 12:16 | Outpatient (CLI) | payer OTHER, MEDICAID, SELFPAY ==
[2019-04-23 09:26] VITALS: BMI 58.6
== END ==
PROVIDERS: PCP Family Medicine; Referring Provider Obstetrics & Gynecology; Visit Provider Obstetrics & Gynecology
DX: D39.12 Neoplasm of uncertain behavior of left ovary (principal)
CPT/HCPCS: 36415; 83520

== ENCOUNTER → 2021-05-05 15:33 | Outpatient (CLI) | payer OTHER, MEDICAID, SELFPAY ==
[2019-04-23 09:26] VITALS: BMI 58.6
--- NOTE | 2021-05-05 15:34 | DIET.PN1 ---
Dietary Progress Note Telehealth RD f/u for this 13w F c gestational diabetes. Pt now taking 500mg metformin bid but FBG still remain 90-110 with a few readings in 80s. Specialist at likely to start pt on long acting insulin HS. Pt feeling depressed about needing to take another medication, especially insulin. She is fearful it will be a lifelong change. Spent near entirety of visit with supportive counseling regarding insulin usage on healthy mom, healthy baby, not necessarily life-long medication. Pt ordered treadmill, will arrive Sept 1. Pt hopes this will lead to increased physical activity as it removes many barriers to her currently not exercising (having young foster daughter, unsafe street, weather). Discussed strategies for more success with initiating regular physical activity routine such as pairing with exclusive TV show, rewarding self after certain number of treadmill workouts, discussed starting slow and working up once pt more conditioned to exercise. Pt feels she is eating healthier than in entire life and doing safe portion control. Telehealth f/u in 4w.
== END ==
PROVIDERS: PCP Family Medicine; Referring Provider Family Medicine; Visit Provider Family Medicine
DX: O24.415 Gestational diabetes mellitus in pregnancy, controlled by oral hypoglycemic drugs (principal); Z3A.14 14 weeks gestation of pregnancy; Z71.3 Dietary counseling and surveillance
CPT/HCPCS: 97803

== ENCOUNTER → 2021-05-15 10:06 | Outpatient (CLI) | payer OTHER, MEDICAID, SELFPAY ==
[2019-04-23 09:26] VITALS: BMI 58.6
[2021-05-18 11:18] LABS: AFP Value 18.8 ng/mL (.); Gest Age on Col Date 17.3 weeks (.); Insulin Dep Diabetes No (.); OSBR Risk 1IN 10000 (.); Results Report (.); Test Results *Screen Negative* (.)
== END ==
PROVIDERS: PCP Family Medicine; Referring Provider Obstetrics & Gynecology; Visit Provider Obstetrics & Gynecology
DX: Z34.02 Encounter for supervision of normal first pregnancy, second trimester (principal); Z3A.17 17 weeks gestation of pregnancy
CPT/HCPCS: 36415; 82105

== ENCOUNTER → 2021-06-02 14:08 | Outpatient (CLI) | payer OTHER, MEDICAID, SELFPAY ==
[2019-04-23 09:26] VITALS: BMI 58.6
--- NOTE | 2021-06-02 14:13 | DIET.PN1 ---
Dietary Progress Note Telehealth f/u for 35y F c PCOS who is 20w and has GDM Oct 21 estimated due date Pt seeing high risk specialist at . Started taking HS insulin, currently taking 20U but still seeing FBG 108, has been instructed to increase every 2 days by 2U until FBG under 95. Pt having 20w anatomy scan in a few days, excited, and knows having baby girl. Pt not yet feeling baby move. Pt would like CGM as she still does not have good understanding on how her diet and movement corresponds to her BG. Pt waiting for insurance authorization for 14d trial. Pt noticed her usual breakfast of chadian muffin, egg, and sausage (30g CHO) leaves her with 1hPP BG over 140 when a few weeks ago she was able to eat that meal without issue. Pt to try eating half the chadian muffin tomorrow to see how BG responds. f/u scheduled for 3w via telehealth
== END ==
PROVIDERS: PCP Family Medicine; Referring Provider Family Medicine; Visit Provider Family Medicine
DX: O24.414 Gestational diabetes mellitus in pregnancy, insulin controlled (principal); O99.282 Endocrine, nutritional and metabolic diseases complicating pregnancy, second trimester; E28.2 Polycystic ovarian syndrome; Z3A.20 20 weeks gestation of pregnancy; Z71.3 Dietary counseling and surveillance
CPT/HCPCS: 97803

== ENCOUNTER → 2021-06-21 13:27 | Outpatient (CLI) | payer OTHER, MEDICAID, SELFPAY ==
[2019-04-23 09:26] VITALS: BMI 58.6
[2021-06-21 16:35] LABS: COVID19 -Nasal RAPID POSITIVE (Negative)
== END ==
PROVIDERS: PCP Family Medicine; Visit Provider Nurse Practitioner Family
DX: U07.1 COVID-19 (principal)
CPT/HCPCS: 87635

== ENCOUNTER → 2021-08-04 15:07 | Outpatient (CLI) | payer OTHER, MEDICAID, SELFPAY ==
[2019-04-23 09:26] VITALS: BMI 58.6
[2021-08-04 15:55] LABS: Hematocrit 33.2 % (36-46)
== END ==
PROVIDERS: PCP Family Medicine; Referring Provider Obstetrics & Gynecology; Visit Provider Obstetrics & Gynecology
DX: Z34.82 Encounter for supervision of other normal pregnancy, second trimester (principal); Z3A.28 28 weeks gestation of pregnancy
CPT/HCPCS: 36415; 85014; 85018

== ENCOUNTER → 2021-08-10 16:05 | Outpatient (CLI) | payer OTHER, MEDICAID, SELFPAY ==
[2019-04-23 09:26] VITALS: BMI 58.6
== END ==
PROVIDERS: PCP Family Medicine; Referring Provider Family Medicine; Visit Provider Family Medicine
DX: R30.0 Dysuria (principal); R80.9 Proteinuria, unspecified
CPT/HCPCS: 81002; 87086

== ENCOUNTER 2021-08-26 14:14 | Observation (INO) | payer OTHER, MEDICAID, SELFPAY ==
[2019-04-23 09:26] VITALS: BMI 58.6
== END 2021-08-26 15:10 | disposition home or self-care (01) ==
LOC: LABOR 14:17
PROVIDERS: Admitting Provider Obstetrics & Gynecology; PCP Family Medicine; Referring Provider Obstetrics & Gynecology; Visit Provider Obstetrics & Gynecology
DX: O24.913 Unspecified diabetes mellitus in pregnancy, third trimester (principal); Z79.4 Long term (current) use of insulin; O09.513 Supervision of elderly primigravida, third trimester; Z3A.32 32 weeks gestation of pregnancy
CPT/HCPCS: 59025; G0378; G0379

== ENCOUNTER 2021-08-31 08:04 | Outpatient (CLI) | payer OTHER, MEDICAID, SELFPAY ==
[2019-04-23 09:26] VITALS: BMI 58.6
== END 2021-08-31 09:12 | disposition home or self-care (01) ==
LOC: LABOR 10:04 → OB 09-06 09:16
PROVIDERS: PCP Family Medicine; Referring Provider Obstetrics & Gynecology; Visit Provider Obstetrics & Gynecology
DX: O09.513 Supervision of elderly primigravida, third trimester (principal); O24.414 Gestational diabetes mellitus in pregnancy, insulin controlled; O13.3 Gestational [pregnancy-induced] hypertension without significant proteinuria, third trimester; Z3A.32 32 weeks gestation of pregnancy
CPT/HCPCS: 59025; G0378; G0379

== ENCOUNTER 2021-09-03 11:53 | Outpatient (CLI) | payer OTHER, MEDICAID, SELFPAY ==
[2019-04-23 09:26] VITALS: BMI 58.6
== END 2021-09-03 12:44 | disposition home or self-care (01) ==
LOC: LABOR 12:17 → OB 09-06 09:45
PROVIDERS: PCP Family Medicine; Referring Provider Specialist; Visit Provider Specialist
DX: O24.414 Gestational diabetes mellitus in pregnancy, insulin controlled (principal); Z3A.33 33 weeks gestation of pregnancy
CPT/HCPCS: 59025; G0378; G0379

== ENCOUNTER 2021-09-10 08:08 | Outpatient (CLI) | payer OTHER, MEDICAID, SELFPAY ==
[2019-04-23 09:26] VITALS: BMI 58.6
== END 2021-09-10 09:20 | disposition home or self-care (01) ==
LOC: LABOR 08:14 → OB 09-13 14:42
PROVIDERS: PCP Family Medicine; Referring Provider Obstetrics & Gynecology; Visit Provider Obstetrics & Gynecology
DX: O24.414 Gestational diabetes mellitus in pregnancy, insulin controlled (principal); O13.3 Gestational [pregnancy-induced] hypertension without significant proteinuria, third trimester; O09.513 Supervision of elderly primigravida, third trimester; Z3A.34 34 weeks gestation of pregnancy
CPT/HCPCS: 59025; G0378; G0379

== ENCOUNTER 2021-09-14 08:53 | Outpatient (CLI) | payer OTHER, MEDICAID, SELFPAY ==
[2019-04-23 09:26] VITALS: BMI 58.6
== END 2021-09-14 09:45 | disposition home or self-care (01) ==
LOC: LABOR 09:12 → OB 09-16 11:07
PROVIDERS: PCP Family Medicine; Referring Provider Obstetrics & Gynecology; Visit Provider Obstetrics & Gynecology
DX: O24.414 Gestational diabetes mellitus in pregnancy, insulin controlled (principal); O09.513 Supervision of elderly primigravida, third trimester; O13.3 Gestational [pregnancy-induced] hypertension without significant proteinuria, third trimester; O99.213 Obesity complicating pregnancy, third trimester; Z3A.34 34 weeks gestation of pregnancy
CPT/HCPCS: 59025; G0378; G0379

== ENCOUNTER 2021-09-17 08:25 | Outpatient (CLI) | payer OTHER, MEDICAID, SELFPAY ==
[2019-04-23 09:26] VITALS: BMI 58.6
== END 2021-09-17 10:40 | disposition home or self-care (01) ==
LOC: LABOR 09:59 → OB 09-21 07:28
PROVIDERS: PCP Family Medicine; Referring Provider Obstetrics & Gynecology; Visit Provider Obstetrics & Gynecology
DX: O24.414 Gestational diabetes mellitus in pregnancy, insulin controlled (principal); O13.3 Gestational [pregnancy-induced] hypertension without significant proteinuria, third trimester; O09.513 Supervision of elderly primigravida, third trimester; O99.213 Obesity complicating pregnancy, third trimester; O09.523 Supervision of elderly multigravida, third trimester; Z3A.35 35 weeks gestation of pregnancy
CPT/HCPCS: 59025; 59050; G0378; G0379

== ENCOUNTER 2021-09-21 08:27 | Outpatient (CLI) | payer OTHER, MEDICAID, SELFPAY ==
[2019-04-23 09:26] VITALS: BMI 58.6
== END 2021-09-21 09:35 | disposition home or self-care (01) ==
LOC: OB 09-23 11:17
PROVIDERS: PCP Family Medicine; Referring Provider Obstetrics & Gynecology; Visit Provider Obstetrics & Gynecology
DX: O24.414 Gestational diabetes mellitus in pregnancy, insulin controlled (principal); O13.3 Gestational [pregnancy-induced] hypertension without significant proteinuria, third trimester; O09.513 Supervision of elderly primigravida, third trimester; O99.213 Obesity complicating pregnancy, third trimester; Z3A.35 35 weeks gestation of pregnancy; Z34.03 Encounter for supervision of normal first pregnancy, third trimester
CPT/HCPCS: 59025; 87653; G0378; G0379

== ENCOUNTER → 2021-09-21 11:21 | Outpatient (CLI) | payer OTHER, MEDICAID, SELFPAY ==
[2019-04-23 09:26] VITALS: BMI 58.6
[2021-09-22 07:46] LABS: Strep Grp B PCR POS for Grp B Strep
== END ==
PROVIDERS: PCP Family Medicine; Referring Provider Obstetrics & Gynecology; Visit Provider Obstetrics & Gynecology
DX: Z34.03 Encounter for supervision of normal first pregnancy, third trimester (principal); Z3A.35 35 weeks gestation of pregnancy
CPT/HCPCS: 87653

== ENCOUNTER 2021-09-28 08:24 | Outpatient (CLI) | payer OTHER, MEDICAID, SELFPAY ==
[2019-04-23 09:26] VITALS: BMI 58.6
[2021-09-28 10:03] VITALS: BP 132/68
[2021-09-28 10:07] VITALS: BP 132/68
== END 2021-09-28 09:55 | disposition home or self-care (01) ==
LOC: LABOR 09:09 → OB 09-29 11:58
PROVIDERS: PCP Family Medicine; Referring Provider Obstetrics & Gynecology; Visit Provider Obstetrics & Gynecology
DX: O24.414 Gestational diabetes mellitus in pregnancy, insulin controlled (principal); O10.913 Unspecified pre-existing hypertension complicating pregnancy, third trimester; Z3A.36 36 weeks gestation of pregnancy
CPT/HCPCS: 59025; G0378; G0379

== ENCOUNTER → 2021-10-18 14:34 | Outpatient (CLI) | payer OTHER, MEDICAID, SELFPAY ==
[2019-04-23 09:26] VITALS: BMI 58.6
== END ==
PROVIDERS: PCP Family Medicine; Visit Provider Obstetrics & Gynecology
DX: T81.40XA Infection following a procedure, unspecified, initial encounter (principal)
CPT/HCPCS: 87070; 87075; 87077; 87205

== ENCOUNTER → 2021-10-19 08:26 | Outpatient (CLI) | payer OTHER, MEDICAID, SELFPAY ==
[2019-04-23 09:26] VITALS: BMI 58.6
== END ==
PROVIDERS: PCP Family Medicine; Referring Provider Obstetrics & Gynecology; Visit Provider Family Medicine
DX: O90.0 Disruption of cesarean delivery wound (principal); S31.105A Unspecified open wound of abdominal wall, periumbilic region without penetration into peritoneal cavity, initial encounter; L08.9 Local infection of the skin and subcutaneous tissue, unspecified; O24.435 Gestational diabetes mellitus in puerperium, controlled by oral hypoglycemic drugs; E66.01 Morbid (severe) obesity due to excess calories; Z68.43 Body mass index [BMI] 50.0-59.9, adult; Z79.84 Long term (current) use of oral hypoglycemic drugs
CPT/HCPCS: 11042; 87070; 87075; 87077; 87147; 87186; 87205; 99213; 99214

== ENCOUNTER → 2021-10-26 09:53 | Outpatient (CLI) | payer OTHER, MEDICAID, SELFPAY ==
[2019-04-23 09:26] VITALS: BMI 58.6
== END ==
PROVIDERS: PCP Family Medicine; Referring Provider Family Medicine; Visit Provider Family Medicine
DX: O90.0 Disruption of cesarean delivery wound (principal); S31.105A Unspecified open wound of abdominal wall, periumbilic region without penetration into peritoneal cavity, initial encounter; B95.7 Other staphylococcus as the cause of diseases classified elsewhere; O24.435 Gestational diabetes mellitus in puerperium, controlled by oral hypoglycemic drugs; E66.01 Morbid (severe) obesity due to excess calories; Z68.43 Body mass index [BMI] 50.0-59.9, adult; Z39.1 Encounter for care and examination of lactating mother
CPT/HCPCS: 11042; 97607; 99213

== ENCOUNTER → 2021-11-04 09:57 | Outpatient (CLI) | payer OTHER, MEDICAID, SELFPAY ==
[2019-04-23 09:26] VITALS: BMI 58.6
== END ==
PROVIDERS: PCP Family Medicine; Referring Provider Family Medicine; Visit Provider Family Medicine
DX: O90.0 Disruption of cesarean delivery wound (principal); S31.105A Unspecified open wound of abdominal wall, periumbilic region without penetration into peritoneal cavity, initial encounter
CPT/HCPCS: 97607

== ENCOUNTER → 2021-11-08 09:01 | Outpatient (CLI) | payer OTHER, MEDICAID, SELFPAY ==
[2019-04-23 09:26] VITALS: BMI 58.6
== END ==
PROVIDERS: PCP Family Medicine; Referring Provider Family Medicine; Visit Provider Family Medicine
DX: Z09 Encounter for follow-up examination after completed treatment for conditions other than malignant neoplasm (principal); Z87.2 Personal history of diseases of the skin and subcutaneous tissue
CPT/HCPCS: 99212

== ENCOUNTER → 2021-11-18 08:18 | Outpatient (CLI) | payer OTHER, MEDICAID, SELFPAY ==
[2019-04-23 09:26] VITALS: BMI 58.6
[2021-11-18 10:40] LABS: Glucose Fasting 92 mg/dL (70-100)
[2021-11-18 11:04] LABS: Glucose 1 Hour 157 mg/dL (70-170)
[2021-11-18 11:11] LABS: Glucose Tol Interpretation INTERPRETATION
[2021-11-18 12:40] LABS: Glucose 2 Hour 117 mg/dL (70-140)
[2021-11-23 12:57] LABS: Inhibin B 72.1 pg/mL (.)
== END ==
PROVIDERS: Obstetrics & Gynecology; PCP Family Medicine; Referring Provider Obstetrics & Gynecology; Visit Provider Obstetrics & Gynecology
DX: D39.12 Neoplasm of uncertain behavior of left ovary (principal); O24.419 Gestational diabetes mellitus in pregnancy, unspecified control
CPT/HCPCS: 36415; 82951; 82952; 83520

== ENCOUNTER → 2021-12-01 10:51 | Outpatient (CLI) | payer OTHER, MEDICAID, SELFPAY ==
[2019-04-23 09:26] VITALS: BMI 58.6
--- NOTE | 2021-12-01 | DI.US.S_ITS ---
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 Additional endovaginal scanning was necessary due to incomplete visualization of the adnexal and endometrial structures by transabdominal scanning. COMPARISON: [facility], US, US PELVIC COMPLETE, 03/17/2020, 11:40. FINDINGS: Uterus: Uterus is anteverted and normal in size at 8.8 x 4.4 x 5.5 cm. The myometrium is homogeneous. The endometrium measures 7.4 mm combined thickness. No focal uterine mass Ovaries: There is a right ovarian cyst measuring 37 mm. There is an ill-defined hypoechoic focus within the right adnexal region measuring roughly 86 mm. Left ovary not seen. Other: No pathologic free abdominal or pelvic fluid. IMPRESSION: 1. Right ovarian cyst. 2. Indeterminate 86 mm right adnexal focus. MRI with and without intravenous contrast may be helpful for further assessment. We strive to produce accurate, complete, and clear reports of imaging services. To assist us in improving patient care, this report was composed using standard report templates and voice recognition software. Therefore, it may contain abnormal punctuation, insertions and/or omissions. Occasional wrong-word or sound-alike substitutions may occur. Though we review the report and make efforts to correct it, we do recommend that the report be read carefully in proper context to recognize any text inaccuracies. Dictated by: Leida Vo M.D. on 12/01/2021 at 13:20 Approved by: Leida Vo M.D. on 12/01/2021 at 13:23
== END ==
PROVIDERS: PCP Family Medicine; Referring Provider Obstetrics & Gynecology; Visit Provider Obstetrics & Gynecology
DX: D39.12 Neoplasm of uncertain behavior of left ovary (principal); N83.201 Unspecified ovarian cyst, right side
CPT/HCPCS: 76830; 76856

== ENCOUNTER → 2022-02-26 08:45 | Outpatient (CLI) | payer OTHER, MEDICAID, SELFPAY ==
[2019-04-23 09:26] VITALS: BMI 58.6
--- NOTE | 2022-02-26 08:48 | DI.MRI.S_ITS ---
PROCEDURE: MR PELVIS WO/W CON INDICATIONS: Indeterminate right adnexal structure on prior ultrasound. History of left ovarian cancer, prior left ovary resection. TECHNIQUE: Coronal HASTE, sagittal breath-hold T2 FSE; axial T1 FSE with and without fat saturation through the pelvis. Optional long- and short-axis uterine nonbreath-hold T2 FSE through the uterus. Sagittal or axial dynamic VIBE during administration of contrast. Post-contrast axial or coronal VIBE/2-D FLASH with fat saturation from the iliac crests to the symphysis. Optional diffusion weighted imaging and ADC may be performed. COMPARISON: [facility], CT, CT ABDOMEN PELVIS W CON, 03/20/2020, 15:17. [facility], CT, CT ABDOMEN PELVIS W CON, 11/06/2020, 8:06. [facility], US, US PELVIC COMPLETE, 12/01/2021, 11:05. FINDINGS: Image quality: Several sequences are degraded by artifact likely related to patient body habitus. Uterus: Uterus is unremarkable in size, 8.5 x 4.1 x 6.4 cm. Endometrium is normal in thickness, 5 mm. Junctional zone is normal in thickness at 12 mm or less. Adnexa: The right ovary measures 5.6 x 5.3 x 2.7 cm, volume 42 cc. Along the upper lateral margin of the ovary, a cystic structure is present likely corresponding to the finding on prior pelvic ultrasound. It measures 4.7 x 3.4 x 4.2 cm, volume [address] it measured approximately 3.5 x 3.3 x 6.4 cm, volume 38 cc. A small portion of the cyst is partially excluded from the [id number] on T2 weighted images. The visualized portions of the cyst appear simple. No mural nodularity or abnormal enhancement visualized within this finding. It is difficult to determine if the cyst represents an exophytic ovarian cyst versus an adnexal/paraovarian cyst. The left ovary is not visualized, by report surgically absent. No suspicious left adnexal finding identified. Urinary system: Bladder wall is normal in thickness. Distal ureters are non distended. Urethra appears unremarkable in morphology. Nodes and vessels: No pelvic or inguinal adenopathy by size criteria. Iliac vessels are normal in size. Bowel and peritoneum: No substantial free pelvic fluid. Inferior colon and small bowel loops are normal in caliber. Soft tissues: Postsurgical changes of the right lower quadrant abdominal wall. Bones: Marrow demonstrates unremarkable overall signal. IMPRESSION: A 4.7 cm right adnexal cyst is present, possibly an exophytic ovarian cyst or paraovarian cyst. A small portion of the cyst is excluded from the field of view due to high position of the ovary. The imaged portions of the cyst appear simple without suspicious features identified. Allowing for differences in modality, the cyst is likely not substantially changed in size since the 11/06/2020 CT of the abdomen and pelvis. Although no highly suspicious features are visualized, if clinically indicated surveillance imaging could be performed with an interval of 12 months or other interval at clinical discretion. Dictated by: Harvey Devi M.D. on 02/28/2022 at 11:25 Approved by: Harvey Devi M.D. on 02/28/2022 at 13:02
== END ==
PROVIDERS: PCP Family Medicine; Referring Provider Obstetrics & Gynecology; Visit Provider Obstetrics & Gynecology
DX: R93.89 Abnormal findings on diagnostic imaging of other specified body structures (principal); N83.201 Unspecified ovarian cyst, right side; Z85.43 Personal history of malignant neoplasm of ovary
CPT/HCPCS: 72197; A9579

== ENCOUNTER → 2022-02-28 14:27 | Outpatient (CLI) | payer OTHER, MEDICAID, SELFPAY ==
[2019-04-23 09:26] VITALS: BMI 58.6
[2022-03-04 13:39] LABS: Inhibin B 177.3 pg/mL (.)
== END ==
PROVIDERS: PCP Family Medicine; Referring Provider Obstetrics & Gynecology; Visit Provider Obstetrics & Gynecology
DX: D39.12 Neoplasm of uncertain behavior of left ovary (principal)
CPT/HCPCS: 36415; 83520

== ENCOUNTER → 2022-04-16 11:28 | Outpatient (CLI) | payer OTHER, MEDICAID, SELFPAY ==
[2019-04-23 09:26] VITALS: BMI 58.6
== END ==
PROVIDERS: PCP Family Medicine; Referring Provider Obstetrics & Gynecology; Visit Provider Obstetrics & Gynecology
DX: D39.12 Neoplasm of uncertain behavior of left ovary (principal); R10.31 Right lower quadrant pain

== ENCOUNTER → 2022-04-19 08:02 | Outpatient (CLI) | payer OTHER, MEDICAID, SELFPAY ==
[2019-04-23 09:26] VITALS: BMI 58.6
--- NOTE | 2022-04-19 | DI.CT.S_ITS ---
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 Coronal and sagittal reformats were performed. For radiation dose reduction, the following was used: automated exposure control, adjustment of mA and/or kV according to patient size. COMPARISON: [facility], CT, CT ABDOMEN PELVIS W CON, 03/20/2020, 15:17. [facility], CT, CT ABDOMEN PELVIS W CON, 11/06/2020, 8:06. FINDINGS: Image quality: Excellent. Lung bases: Stable right lower lobe subpleural nodules are seen, including 4 mm nodule, as on series 3, image 13. Heart: No significant findings. ABDOMEN: Liver: Diffuse fatty liver infiltration is noted. The liver is prominent in size and demonstrates no suspicious lesions. Gallbladder: Unremarkable. Biliary ducts: Unremarkable. Pancreas: Unremarkable. Spleen: The spleen is enlarged, measuring 16.5 cm craniocaudal. Adrenal Glands: Unremarkable. Kidneys and Ureters: Unremarkable. Stomach and Bowel: Stomach, small bowel loops, and colon are unremarkable. Peritoneum: Several peritoneal nodules are seen, with the largest seen on the right posteriorly, as on series 2, image 61 measuring 2.7 by 0.8 cm in greatest axial dimension. These nodules are new compared to the prior CT. Ventral Wall: No hernia. Abdominal Nodes: There is a new pre aortic lymph node seen within the retroperitoneum measuring 2.1 x 1.7 cm in greatest axial dimension, as on series 2, image 48. No enlarged lymph nodes can be seen along the mesentery. Vessels: Aorta and inferior vena cava are normal in size. PELVIS: Pelvic Organs: The uterus is unremarkable. The left ovary has been resected. Within the right ovary, there is a nonenhancing water density cyst measuring up to 4.6 cm, as on series 2, image 73. Bladder: Unremarkable. Pelvic Nodes: No enlarged lymph nodes. Miscellaneous: No inguinal hernias are seen. Bones: Unremarkable. IMPRESSION: Interval development of peritoneal nodules. In this patient with a history of ovarian cancer, these are highly suspicious for peritoneal metastatic disease. There is a new enlarged retroperitoneal lymph node also seen. There is a persistent cystic lesion seen of the right ovary, measuring up to 4.6 cm. Status post left oophorectomy. Incidental note is made of: Stable right lower lobe subpleural nodules. Enlarged, fatty liver. Splenomegaly Dictated by: Curly Vuong M.D. on 04/19/2022 at 9:13 Approved by: Curly Vuong M.D. on 04/19/2022 at 9:20
== END ==
PROVIDERS: PCP Family Medicine; Referring Provider Obstetrics & Gynecology; Visit Provider Obstetrics & Gynecology
DX: D39.12 Neoplasm of uncertain behavior of left ovary (principal); K66.9 Disorder of peritoneum, unspecified; R59.0 Localized enlarged lymph nodes; R16.1 Splenomegaly, not elsewhere classified; K76.0 Fatty (change of) liver, not elsewhere classified; Z85.43 Personal history of malignant neoplasm of ovary; Z90.721 Acquired absence of ovaries, unilateral
CPT/HCPCS: 74177

== ENCOUNTER → 2022-04-21 08:55 | Outpatient (CLI) | payer OTHER, MEDICAID, SELFPAY ==
[2019-04-23 09:26] VITALS: BMI 58.6
[2022-04-21 15:45] LABS: Cancer Antigen 125 19.1 U/mL (0-35)
[2022-04-25 14:13] LABS: Inhibin B 305.9 pg/mL (.)
[2022-04-25 20:18] LABS: Anti Mullerian Hormone 8.03 ng/mL (.)
== END ==
PROVIDERS: PCP Family Medicine; Referring Provider Obstetrics & Gynecology; Visit Provider Obstetrics & Gynecology
DX: D39.12 Neoplasm of uncertain behavior of left ovary (principal)
CPT/HCPCS: 36415; 82397; 83520; 86304

== ENCOUNTER → 2022-05-14 08:27 | Outpatient (CLI) | payer OTHER, MEDICAID, SELFPAY ==
[2019-04-23 09:26] VITALS: BMI 58.6
[2022-05-14 08:50] LABS: Add Manual Diff / Slide Review NO; Basophils Absolute Auto 100 /uL (0-100); Basophils Percent Auto 0.9 % (0-2); Eosinophils Absolute Auto 200 /uL (0-450); Eosinophils Percent Auto 2.4 % (2-4); Hematocrit 38.6 % (36-46); Hemoglobin 12.9 g/dL (12.0-16.0); Lymphocytes Absolute Auto 1500 /uL (1100-4500); Lymphocytes Percent Auto 22.4 % (25-40); Mean Corpuscular HGB Conc 33.5 % (30-36); Mean Corpuscular Volume 80.6 fL (80-100); Monocytes Absolute Auto 400 /uL (0-900); Monocytes Percent Auto 6.8 % (3-14); Neutrophils Absolute Auto 4500 /uL (1500-7000); Neutrophils Percent Auto 67.5 % (50-75); Platelet Count 187 X10^3/uL (150-400); Red Blood Cell Count 4.79 X10^6/uL (4.0-5.2); Red Cell Distribution Width 15.6 % (11.6-14.8); White Blood Cell Count 6.6 X10^3/uL (4.5-11.0)
[2022-05-14 09:04] LABS: BUN Creatinine Ratio 27.5 (6-22); Blood Urea Nitrogen 19 mg/dL (7-17); Calcium 9.4 mg/dL (8.4-10.2); Carbon Dioxide 25 mmol/L (22-32); Chloride 107 mmol/L (98-107); Estimated Glomerular Filt Rate > 60 mL/min (>60); Glucose 123 mg/dL (70-100); HEMOLYSIS < 15 (0-50); Potassium 4.2 mmol/L (3.4-5.1); Sodium 141 mmol/L (137-145)
== END ==
PROVIDERS: PCP Family Medicine; Referring Provider Obstetrics & Gynecology; Visit Provider Obstetrics & Gynecology
DX: Z01.812 Encounter for preprocedural laboratory examination (principal); Z13.6 Encounter for screening for cardiovascular disorders
CPT/HCPCS: 36415; 80048; 85025; 93005

== ENCOUNTER → 2022-07-06 09:59 | Outpatient (CLI) | payer OTHER, MEDICAID, SELFPAY ==
[2019-04-23 09:26] VITALS: BMI 58.6
[2022-07-11 12:57] LABS: Inhibin B 261.1 pg/mL (.)
== END ==
PROVIDERS: PCP Family Medicine; Referring Provider Obstetrics & Gynecology; Visit Provider Obstetrics & Gynecology
DX: C56.9 Malignant neoplasm of unspecified ovary (principal)
CPT/HCPCS: 36415; 83520

== ENCOUNTER → 2022-08-09 12:55 | Outpatient (CLI) | payer OTHER, MEDICAID, SELFPAY ==
[2019-04-23 09:26] VITALS: BMI 58.6
[2022-08-12 15:58] LABS: Inhibin B 251.3 pg/mL (.)
== END ==
PROVIDERS: PCP Family Medicine; Referring Provider Obstetrics & Gynecology; Visit Provider Obstetrics & Gynecology
DX: C56.9 Malignant neoplasm of unspecified ovary (principal)
CPT/HCPCS: 36415; 83520

== ENCOUNTER → 2022-08-11 15:30 | Outpatient (CLI) | payer OTHER, MEDICAID, SELFPAY ==
[2019-04-23 09:26] VITALS: BMI 58.6
[2022-08-11 16:19] LABS: Appearance Urine UA CLEAR; Bilirubin Urine UA NEGATIVE (NEGATIVE); Color Urine UA YELLOW; Glucose Urine UA NEGATIVE (Negative); Ketones Urine UA NEGATIVE (NEGATIVE); Leukocyte Esterase Urine UA 1+ (NEGATIVE); Nitrite Urine UA NEGATIVE (Negative); Occult Blood Urine UA 1+ (Negative); Protein Urine UA TRACE (Negative); Specific Gravity Urine UA >=1.030 (1.000-1.035); Urobilinogen Urine UA 0.2 E.U./dL (0.2)
[2022-08-11 16:32] LABS: Bacteria Urine Few (2-10); Culture Indicated Urine Specimen Cultured; RBC Urine 0-1/HPF (0-5/HPF); Squamous Epithelial Cell Urine 1-5 /HPF (0-5/HPF); WBC Urine 1-5/HPF (0-5/HPF)
== END ==
PROVIDERS: PCP Family Medicine; Referring Provider Family Medicine; Visit Provider Family Medicine
DX: R30.0 Dysuria (principal); R35.0 Frequency of micturition
CPT/HCPCS: 81001; 87086

== ENCOUNTER → 2022-08-27 08:28 | Outpatient (CLI) | payer OTHER, MEDICAID, SELFPAY ==
[2019-04-23 09:26] VITALS: BMI 58.6
--- NOTE | 2022-08-27 08:29 | DI.CT.S_ITS ---
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 TECHNIQUE: After the administration of oral and intravenous contrast, axial sections acquired from the supraclavicular neck to the pubic symphysis. Coronal and sagittal reformats were performed. For radiation dose reduction, the following was used: automated exposure control, adjustment of mA and/or kV according to patient size. COMPARISON: None. FINDINGS: Image quality: Good Lungs and pleura: Lung volumes are low. No consolidation. No pleural effusions. Scattered scarring/atelectasis. There are small indeterminate pulmonary nodules, for example in the subpleural right lower lobe which can be followed on subsequent imaging. Mediastinum, heart, and esophagus: No actionable thyroid nodule identified. No pathologic adenopathy by size criteria. No hiatal hernia. Trace pericardial thickening or fluid. Chest wall and thyroid: Unremarkable Solid organs: Mildly steatotic liver. Gallbladder is unremarkable. No pathologic dilation the biliary tree or pancreatic duct. Mild splenomegaly at about 16 cm. No adrenal nodules. No hydronephrosis. Vessels and lymph nodes: The main portal vein is patent. No abdominal aortic aneurysm. Enlarging preaortic node measures 2.3 cm, previously 1.7 cm. Bowel and peritoneum: No bowel obstruction. No pathologic ascites. Right pericolic gutter implant representing the index lesion for this patient's peritoneal disease measuring 2 cm, previously 1.8 cm. Body wall: Ventral abdominal wall postsurgical changes. Pelvis: Hysterectomy. Bladder is under distended. Bones: Scattered degenerative changes without acute or suspicious osseous finding. IMPRESSION: Slightly increased burden of peritoneal disease and slightly increased preaortic malignant lymphadenopathy. No definite active metastases identified in the chest. Small pulmonary nodule should be followed on subsequent imaging. Other findings as above. Dictated by: Kenny Mcmahon M.D. on 08/27/2022 at 11:35 Approved by: Kenny Mcmahon M.D. on 08/27/2022 at 11:43
== END ==
PROVIDERS: PCP Family Medicine; Referring Provider Internal Medicine Hematology & Oncology; Visit Provider Internal Medicine Hematology & Oncology
DX: D39.12 Neoplasm of uncertain behavior of left ovary (principal); C77.2 Secondary and unspecified malignant neoplasm of intra-abdominal lymph nodes; R91.8 Other nonspecific abnormal finding of lung field; R16.1 Splenomegaly, not elsewhere classified; K76.0 Fatty (change of) liver, not elsewhere classified; Z90.710 Acquired absence of both cervix and uterus
CPT/HCPCS: 71260; 74177; Q9967

== ENCOUNTER → 2022-08-29 10:04 | Outpatient (CLI) | payer OTHER, MEDICAID, SELFPAY ==
[2019-04-23 09:26] VITALS: BMI 58.6
== END ==
PROVIDERS: PCP Family Medicine; Referring Provider Internal Medicine Hematology & Oncology; Visit Provider Internal Medicine Hematology & Oncology
DX: D39.12 Neoplasm of uncertain behavior of left ovary (principal); M81.0 Age-related osteoporosis without current pathological fracture; Z79.890 Hormone replacement therapy
CPT/HCPCS: 77080

== ENCOUNTER → 2022-09-05 12:21 | Outpatient (CLI) | payer OTHER, MEDICAID, SELFPAY ==
[2019-04-23 09:26] VITALS: BMI 58.6
[2022-09-09 11:36] LABS: Inhibin B 340.9 pg/mL (.)
== END ==
PROVIDERS: PCP Family Medicine; Referring Provider Obstetrics & Gynecology; Visit Provider Obstetrics & Gynecology
DX: C56.9 Malignant neoplasm of unspecified ovary (principal)
CPT/HCPCS: 36415; 83520

== ENCOUNTER → 2022-09-15 09:26 | Outpatient (CLI) | payer OTHER, MEDICAID, SELFPAY ==
[2019-04-23 09:26] VITALS: BMI 58.6
--- NOTE | 2022-09-15 09:28 | DI.RAD.S_ITS ---
PROCEDURE: XR HIP W PEL IF DONE RT 2V INDICATIONS: worsening R hip pain TECHNIQUE: AP pelvis with lateral view(s) of the right hip(s). COMPARISON: [facility], CT, CT CHEST ABD PEL W CON, 08/27/2022, 10:31. FINDINGS: Bones: No acute fractures or dislocations. Pelvic ring appears intact. No suspicious bony lesions. Moderate-severe bilateral hip degenerative changes. Findings are more pronounced on the right. Soft tissues: The visualized bowel gas pattern is normal. No suspicious soft tissue calcifications. IMPRESSION: Right hip without acute fracture or dislocation. 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 Dictated by: Gautam Chang M.D. on 09/15/2022 at 10:28 Approved by: Gautam Chang M.D. on 09/15/2022 at 10:30
[2022-09-15 11:07] LABS: Hemoglobin A1C% w Est Avg Glu 5.1 % (4.0-6.0)
[2022-09-15 13:48] LABS: Alanine Aminotransferase 37 IU/L (<35); Albumin 4.5 g/dL (3.5-5.0); Albumin Globulin Ratio 1.2 (1.0-2.8); Alkaline Phosphatase 84 U/L (38-126); Aspartate Aminotransferase 29 IU/L (14-36); BUN Creatinine Ratio 31.3 (6-22); Bilirubin Total 0.7 mg/dL (0.2-1.3); Blood Urea Nitrogen 20 mg/dL (7-17); Carbon Dioxide 25 mmol/L (22-32); Chloride 103 mmol/L (98-107); Estimated Glomerular Filt Rate > 60 mL/min (>60); Globulin 3.7 g/dL (1.7-4.1); Glucose 105 mg/dL (70-100); HEMOLYSIS < 15 (0-50); Potassium 4.5 mmol/L (3.4-5.1); Sodium 140 mmol/L (137-145); Total Protein 8.2 g/dL (6.3-8.2)
== END ==
PROVIDERS: PCP Family Medicine; Referring Provider Family Medicine; Visit Provider Family Medicine
DX: D39.12 Neoplasm of uncertain behavior of left ovary (principal); M25.551 Pain in right hip; E66.01 Morbid (severe) obesity due to excess calories; I10 Essential (primary) hypertension
CPT/HCPCS: 36415; 73502; 80053; 83036

== ENCOUNTER → 2022-10-06 11:03 | Outpatient (CLI) | payer OTHER, MEDICAID, SELFPAY ==
[2019-04-23 09:26] VITALS: BMI 58.6
[2022-10-06 12:17] LABS: Follicle Stimulating Hormone 5.24 mIU/mL; Luteinizing Hormone 15.3 mIU/mL
[2022-10-10 12:07] LABS: Inhibin B 355.4 pg/mL (.)
[2022-10-14 13:04] LABS: Anti Mullerian Hormone 9.51 ng/mL (.)
== END ==
PROVIDERS: PCP Family Medicine; Referring Provider Obstetrics & Gynecology; Visit Provider Obstetrics & Gynecology
DX: C56.2 Malignant neoplasm of left ovary (principal)
CPT/HCPCS: 36415; 82397; 83001; 83002; 83520

== ENCOUNTER → 2022-11-08 08:14 | Outpatient (CLI) | payer OTHER, MEDICAID, SELFPAY ==
[2019-04-23 09:26] VITALS: BMI 58.6
--- NOTE | 2022-11-08 08:21 | DI.MG.S_ITS ---
BILATERAL DIGITAL SCREENING MAMMOGRAM 3D/2D WITH CAD: 11/08/2022 CLINICAL: Routine screening. Comparison is made to exam dated: 09/18/2020 mammogram - [facility]. Both breasts are almost entirely fatty (category a/<25% glandular tissue). Current study was also evaluated with a Computer Aided Detection (CAD) system. No significant masses, calcifications, or other findings are seen in either breast. There has been no significant interval change. IMPRESSION: NEGATIVE There is no mammographic evidence of malignancy. A 1 year screening mammogram is recommended. Based on the Tyrer Cuzick model (a risk assessment model) the patient's lifetime risk is 13.0% and her 10 year risk is 1.3%. According to the ACR, ACS, and NCCN guidelines, an annual breast MRI exam along with mammogram is recommended if the patient's lifetime risk is 20% or greater. This exam was interpreted at Station ID: [id number]. NOTE: For mammograms, a report in lay terms will be sent to the patient. Approximately 15% of breast malignancies will not be visualized mammographically. In the management of a palpable breast mass, a negative mammogram must not discourage biopsy of a clinically suspicious lesion. Electronically Signed By: Jensen Champion M.D., jr/dale:11/08/2022 12:55:37 letter sent: Normal Exam ACR BI-RADS Category 1: Negative [id number]
[2022-11-08 10:00] LABS: Follicle Stimulating Hormone 5.42 mIU/mL; Luteinizing Hormone 0.759 mIU/mL
[2022-11-14 12:36] LABS: Inhibin B 323.7 pg/mL (.)
[2022-11-18 13:05] LABS: Anti Mullerian Hormone 12.6 ng/mL (.)
== END ==
PROVIDERS: PCP Family Medicine; Referring Provider Obstetrics & Gynecology; Visit Provider Obstetrics & Gynecology
DX: C56.2 Malignant neoplasm of left ovary (principal); Z12.31 Encounter for screening mammogram for malignant neoplasm of breast
CPT/HCPCS: 36415; 77063; 77067; 82397; 83001; 83002; 83520

== ENCOUNTER → 2022-12-07 15:39 | Outpatient (CLI) | payer OTHER, MEDICAID, SELFPAY ==
[2019-04-23 09:26] VITALS: BMI 58.6
[2022-12-07 16:57] LABS: Follicle Stimulating Hormone 4.28 mIU/mL; Luteinizing Hormone < 0.216 mIU/mL
[2022-12-12 11:13] LABS: Inhibin B 213.7 pg/mL (.)
== END ==
PROVIDERS: PCP Family Medicine; Referring Provider Obstetrics & Gynecology; Visit Provider Obstetrics & Gynecology
DX: C56.2 Malignant neoplasm of left ovary
CPT/HCPCS: 36415; 82397; 83001; 83002; 83520

== ENCOUNTER → 2022-12-30 17:50 | Outpatient (CLI) | payer OTHER, MEDICAID, SELFPAY ==
[2019-04-23 09:26] VITALS: BMI 58.6
== END ==
PROVIDERS: PCP Family Medicine; Visit Provider Nurse Practitioner Family
DX: R30.0 Dysuria (principal)
CPT/HCPCS: 81002; 87086; 87210

== ENCOUNTER → 2023-01-04 15:20 | Outpatient (CLI) | payer OTHER, MEDICAID, SELFPAY ==
[2019-04-23 09:26] VITALS: BMI 58.6
[2023-01-09 13:34] LABS: Inhibin B 227.3 pg/mL (.)
== END ==
PROVIDERS: PCP Family Medicine; Referring Provider Obstetrics & Gynecology; Visit Provider Obstetrics & Gynecology
DX: C56.9 Malignant neoplasm of unspecified ovary (principal)
CPT/HCPCS: 36415; 83520

== ENCOUNTER → 2023-03-07 17:29 | Outpatient (CLI) | payer OTHER, MEDICAID, SELFPAY ==
[2019-04-23 09:26] VITALS: BMI 58.6
[2023-03-13 11:48] LABS: Inhibin B 230.5 pg/mL (.)
[2023-03-15 11:54] LABS: Anti Mullerian Hormone 10.4 ng/mL (.)
== END ==
PROVIDERS: PCP Family Medicine; Referring Provider Obstetrics & Gynecology; Visit Provider Obstetrics & Gynecology
DX: C56.2 Malignant neoplasm of left ovary (principal)
CPT/HCPCS: 36415; 82397; 83520

== ENCOUNTER → 2023-04-17 17:06 | Outpatient (CLI) | payer OTHER, MEDICAID, SELFPAY ==
[2019-04-23 09:26] VITALS: BMI 58.6
[2023-04-17 18:38] LABS: Free T4, Direct Thyroxine 1.03 ng/dL (0.78-2.19)
[2023-04-17 18:52] LABS: Thyroid Stimulating Hormone 0.516 uIU/mL (0.47-4.68)
[2023-04-19 02:56] LABS: Labcorp Hemoglobin (Hb) A1c 5.8 % (4.8-5.6)
== END ==
PROVIDERS: PCP Family Medicine; Referring Provider Family Medicine; Visit Provider Family Medicine
DX: Z71.89 Other specified counseling (principal)
CPT/HCPCS: 36415; 83036; 84439; 84443

== ENCOUNTER → 2023-05-12 14:02 | Outpatient (CLI) | payer OTHER, MEDICAID, SELFPAY ==
[2019-04-23 09:26] VITALS: BMI 58.6
[2023-05-15 09:53] LABS: Inhibin B 266.5 pg/mL (.)
== END ==
PROVIDERS: PCP Family Medicine; Referring Provider Obstetrics & Gynecology; Visit Provider Obstetrics & Gynecology
DX: C56.2 Malignant neoplasm of left ovary (principal)
CPT/HCPCS: 36415; 82397; 83520

== ENCOUNTER → 2023-05-30 16:04 | Outpatient (CLI) | payer OTHER, MEDICAID, SELFPAY ==
[2019-04-23 09:26] VITALS: BMI 58.6
[2023-06-02 13:10] LABS: Inhibin B 298.5 pg/mL (.)
[2023-06-07 11:15] LABS: Anti Mullerian Hormone 13.8 ng/mL (.)
== END ==
PROVIDERS: PCP Family Medicine; Referring Provider Obstetrics & Gynecology; Visit Provider Obstetrics & Gynecology
DX: C56.2 Malignant neoplasm of left ovary (principal)
CPT/HCPCS: 36415; 82397; 83520

== ENCOUNTER → 2023-07-24 13:19 | Outpatient (CLI) | payer OTHER, MEDICAID, SELFPAY ==
[2019-04-23 09:26] VITALS: BMI 58.6
[2023-07-24 14:33] LABS: Add Manual Diff / Slide Review NO; Basophils Absolute Auto 0 /uL (0-100); Basophils Percent Auto 0.6 % (0-2); Eosinophils Absolute Auto 200 /uL (0-450); Eosinophils Percent Auto 2.5 % (2-4); Hematocrit 37.2 % (36-46); Hemoglobin 12.2 g/dL (12.0-16.0); Lymphocytes Absolute Auto 2000 /uL (1100-4500); Lymphocytes Percent Auto 25.9 % (25-40); Mean Corpuscular HGB Conc 32.9 % (30-36); Mean Corpuscular Volume 78.9 fL (80-100); Monocytes Absolute Auto 500 /uL (0-900); Monocytes Percent Auto 6.8 % (3-14); Neutrophils Absolute Auto 5000 /uL (1500-7000); Neutrophils Percent Auto 64.2 % (50-75); Platelet Count 208 X10^3/uL (150-400); Red Blood Cell Count 4.71 X10^6/uL (4.0-5.2); Red Cell Distribution Width 17.1 % (11.6-14.8); White Blood Cell Count 7.7 X10^3/uL (4.5-11.0)
[2023-07-24 14:43] LABS: Hemoglobin A1C% w Est Avg Glu 5.6 % (4.0-6.0)
[2023-07-24 14:55] LABS: Alanine Aminotransferase 31 IU/L (<35); Albumin 4.5 g/dL (3.5-5.0); Albumin Globulin Ratio 1.3 (1.0-2.8); Alkaline Phosphatase 112 U/L (38-126); Aspartate Aminotransferase 25 IU/L (14-36); BUN Creatinine Ratio 36.8 (6-22); Bilirubin Total 0.5 mg/dL (0.2-1.3); Blood Urea Nitrogen 25 mg/dL (7-17); Calcium 10.4 mg/dL (8.4-10.2); Carbon Dioxide 25 mmol/L (22-32); Chloride 106 mmol/L (98-107); Cholesterol 206 mg/dL (140-199); Estimated Glomerular Filt Rate > 60 mL/min (>60); Globulin 3.4 g/dL (1.7-4.1); Glucose 100 mg/dL (70-100); HDL Cholesterol 34 mg/dL (40-60); HEMOLYSIS < 15 (0-50); Potassium 3.9 mmol/L (3.4-5.1); Sodium 142 mmol/L (137-145); Total Protein 7.9 g/dL (6.3-8.2); Triglycerides 471 mg/dL (35-150)
[2023-07-24 15:22] LABS: TSH w/ Reflex to FT4 0.28 uIU/mL (0.47-4.68)
[2023-07-24 21:45] LABS: Free T4, Direct Thyroxine 1.25 ng/dL (0.78-2.19)
[2023-07-29 13:50] LABS: Anti Mullerian Hormone 12.9 ng/mL (.)
== END ==
PROVIDERS: PCP Family Medicine; Referring Provider Obstetrics & Gynecology; Visit Provider Obstetrics & Gynecology
DX: C56.2 Malignant neoplasm of left ovary (principal); I10 Essential (primary) hypertension; E78.5 Hyperlipidemia, unspecified; R53.83 Other fatigue; K58.9 Irritable bowel syndrome, unspecified; R73.03 Prediabetes
CPT/HCPCS: 36415; 80053; 80061; 82397; 83036; 83520; 84439; 84443; 85025

== ENCOUNTER → 2023-08-05 09:38 | Outpatient (CLI) | payer OTHER, MEDICAID, SELFPAY ==
[2019-04-23 09:26] VITALS: BMI 58.6
== END ==
PROVIDERS: PCP Family Medicine; Referring Provider Family Medicine; Visit Provider Family Medicine

== ENCOUNTER → 2023-09-12 18:04 | Outpatient (CLI) | payer OTHER, SELFPAY ==
[2019-04-23 09:26] VITALS: BMI 58.6
--- NOTE | 2023-09-12 18:17 | DI.RAD.S_ITS ---
PROCEDURE: XR CHEST 2V INDICATIONS: Left rib pain TECHNIQUE: 2 views of the chest were acquired. COMPARISON: [facility], CR, XR CHEST 2V, 05/28/2019, 16:00. [facility], CR, XR CHEST 2V, 03/01/2019, 15:58. FINDINGS: Surgical changes and devices: None. Lungs and pleura: Lungs are clear. No pleural effusions or pneumothorax. Mediastinum: Mediastinal contours are normal. Heart size is normal. Bones and chest wall: No suspicious bony abnormalities. Soft tissues appear unremarkable. IMPRESSION: No acute cardiopulmonary abnormality is seen. Dictated by: Ward Caban M.D. on 09/13/2023 at 11:54 Approved by: Ward Caban M.D. on 09/13/2023 at 11:54
== END ==
PROVIDERS: PCP Family Medicine; Referring Provider Nurse Practitioner Family; Visit Provider Nurse Practitioner Family
DX: R07.81 Pleurodynia (principal)
CPT/HCPCS: 71046

== ENCOUNTER → 2023-11-24 07:54 | Outpatient (CLI) | payer OTHER, SELFPAY ==
[2019-04-23 09:26] VITALS: BMI 58.6
--- NOTE | 2023-11-24 07:55 | DI.NM.S_ITS ---
PROCEDURE: NM EXERCISE TREADMILL NON NUC COMPARISON: None INDICATIONS: Dyspnea on exertion FINDINGS: Rest ECG sinus rhythm. Yordan protocol 3:51, maximum heart rate 165 bpm (91% peak predicted), maximum blood pressure 160/70, 7.0 METS, RUPERTO +50%. Exercise ECG sinus tachycardia, no ST segment changes or arrhythmias. The patient did not complain of exercise-induced chest discomfort. IMPRESSION: Low risk study. No evidence of exercise-induced ischemia or arrhythmia. Normal hemodynamic response. Markedly reduced exercise capacity. Dictated by: Marii Dc D.O. on 11/24/2023 at 16:38 Approved by: Marii Dc D.O. on 11/24/2023 at 16:40
== END ==
LOC: RAD 07:54
PROVIDERS: PCP Family Medicine; Referring Provider Internal Medicine Cardiovascular Disease; Visit Provider Internal Medicine Cardiovascular Disease
DX: R06.09 Other forms of dyspnea (principal)
CPT/HCPCS: 93017

== ENCOUNTER → 2024-02-24 13:20 | Outpatient (CLI) | payer OTHER, SELFPAY ==
[2019-04-23 09:26] VITALS: BMI 58.6
[2024-02-24 14:33] LABS: Influenza A - CEPHEID Flu A NEGATIVE (NEGATIVE); Influenza B - CEPHEID Flu B NEGATIVE (NEGATIVE); Respiratory Syncytial Virus Negative (Negative)
[2024-02-24 14:39] LABS: COVID-19 CEPHEID 4-PLEX PCR Negative (Negative)
== END ==
PROVIDERS: PCP Family Medicine; Visit Provider Physician Assistant Surgical
DX: J02.9 Acute pharyngitis, unspecified (principal); R05.1 Acute cough
CPT/HCPCS: 0241U; 87070

== ENCOUNTER → 2024-02-24 13:28 | Outpatient (CLI) | payer OTHER, SELFPAY ==
[2019-04-23 09:26] VITALS: BMI 58.6
--- NOTE | 2024-02-24 13:30 | DI.RAD.S_ITS ---
PROCEDURE: XR CHEST 2V INDICATIONS: Cough, DANGELO TECHNIQUE: 2 views of the chest were acquired. COMPARISON: Outside Facility, RG, CT THORAX WITH CONTRAST, 03/02/2023, 11:16. [facility], CR, XR CHEST 2V, 05/28/2019, 16:00. [facility], CR, XR CHEST 2V, 09/12/2023, 18:23. FINDINGS: Surgical changes and devices: None. Lungs and pleura: Lungs are clear. No pleural effusions or pneumothorax. Mediastinum: Mediastinal contours are normal. Heart size is normal. Bones and chest wall: No suspicious bony abnormalities. Age-appropriate bony degenerative changes are seen. Soft tissues appear unremarkable. IMPRESSION: No acute cardiopulmonary abnormality is seen. No focal infiltrates are seen. Dictated by: Curly Vuong M.D. on 02/24/2024 at 13:05 Approved by: Curly Vuong M.D. on 02/24/2024 at 13:06
== END ==
PROVIDERS: PCP Family Medicine; Referring Provider Physician Assistant Surgical; Visit Provider Physician Assistant Surgical
DX: R05.1 Acute cough (principal); J02.9 Acute pharyngitis, unspecified
CPT/HCPCS: 0241U; 71046; 87070

== ENCOUNTER → 2024-03-26 14:12 | Outpatient (CLI) | payer OTHER, SELFPAY ==
[2019-04-23 09:26] VITALS: BMI 58.6
== END ==
PROVIDERS: PCP Family Medicine
DX: D39.10 Neoplasm of uncertain behavior of unspecified ovary (principal)
CPT/HCPCS: 36415; 83520

== ENCOUNTER → 2024-06-16 10:07 | Outpatient (CLI) | payer OTHER, SELFPAY ==
[2019-04-23 09:26] VITALS: BMI 58.6
--- NOTE | 2024-06-16 10:08 | DI.CT.S_ITS ---
PROCEDURE: CT CHEST W CON INDICATIONS: eval hx pneumonia TECHNIQUE: After the administration of intravenous contrast, 5 mm thick sections acquired from the pulmonary apices to the posterior costophrenic angles. 1 mm axial lung, 5 mm thick coronal and sagittal reformats and 7 mm axial MIP were acquired. For radiation dose reduction, the following was used: automated exposure control, adjustment of mA and/or kV according to patient size. COMPARISON: None. FINDINGS: Image quality: Diagnostic. Lower Neck: No enlarged lymph nodes. Thyroid: No thyroid nodules which require sonographic follow up, per consensus guidelines. Axillae: No enlarged lymph nodes. Chest Wall: Unremarkable. Bones: Unremarkable. Lungs and Pleura: No pneumothorax or pleural effusions. No consolidation or suspicious nodules. Heart: Heart size is normal. No pericardial effusion. Thoracic Vessels: The aorta and pulmonary arteries demonstrate normal size. Mediastinum and Mandy: No enlarged lymph nodes. Esophagus: No wall thickening. No hiatal hernia. Upper Abdomen: Visualized upper abdomen solid organs and bowel loops appear normal. IMPRESSION: No suspicious pulmonary nodule or consolidation. Approved by: Sruthi Alamo M.D.,Ph.D. on 06/17/2024 at 23:53
== END ==
PROVIDERS: PCP Family Medicine; Referring Provider Family Medicine; Visit Provider Family Medicine
DX: J18.9 Pneumonia, unspecified organism (principal); R91.8 Other nonspecific abnormal finding of lung field
CPT/HCPCS: 71260; Q9967

== ENCOUNTER → 2025-03-21 08:13 | Outpatient (CLI) | payer MEDICARE, SELFPAY ==
[2019-04-23 09:26] VITALS: BMI 58.6
[2025-03-21 08:58] LABS: Add Manual Diff / Slide Review NO; Hematocrit 38.9 % (36-46); Hemoglobin 13.3 g/dL (12.0-16.0); Lymphocytes Absolute Auto 1400 /uL (1100-4500); Mean Corpuscular HGB Conc 34.1 % (30-36); Mean Corpuscular Hemoglobin 26.6 PG (26-34); Mean Corpuscular Volume 78.0 fL (80-100); Platelet Count 184 X10^3/uL (150-400)
[2025-03-21 09:03] LABS: Hemoglobin A1C% w Est Avg Glu 4.6 % (4.0-6.0)
[2025-03-21 09:32] LABS: Alanine Aminotransferase 54 IU/L (<35); Albumin 4.6 g/dL (3.5-5.0); Albumin Globulin Ratio 1.6 (1.0-2.8); Alkaline Phosphatase 97 U/L (38-126); Blood Urea Nitrogen 19 mg/dL (7-17); Calcium 10.1 mg/dL (8.4-10.2); Carbon Dioxide 26 mmol/L (22-32); Chloride 105 mmol/L (98-107); Estimated Glomerular Filt Rate > 60 mL/min (>60); Globulin 2.9 g/dL (1.7-4.1); Glucose 104 mg/dL (70-99); HEMOLYSIS < 15 (0-50); Potassium 4.6 mmol/L (3.4-5.1); Sodium 140 mmol/L (137-145); Total Protein 7.5 g/dL (6.3-8.2)
== END ==
PROVIDERS: PCP Family Medicine; Referring Provider Nurse Practitioner; Visit Provider Nurse Practitioner
DX: I10 Essential (primary) hypertension (principal); R73.9 Hyperglycemia, unspecified; R68.2 Dry mouth, unspecified; R53.83 Other fatigue
CPT/HCPCS: 36415; 80053; 83036; 85025; 87102